=== PATIENT | female | born 1935 | race Caucasian/White ===

== ENCOUNTER → 2020-10-04 | Outpatient (CLI) | payer MEDICARE ==
[2020-10-04 11:39] VITALS: BP 128/81; PULSE 83; RESP 16; TEMP 97.6
--- NOTE | 2020-10-04 12:01 | P.CONS ---
History of Present Illness - Reason for Consult Consult date: 10/04/20 - Chief Complaint Lower back and legs pain - History of Present Illness This is an 85-year-old lady with history of chronic lower back pain with radiation to the lower extremity down to the ankles with numbness in the toes in both feet. The patient has a history of diabetes and maybe diabetic peripheral neuropathy. She also had a compression fracture with kyphoplasty. The MRI showed spondylosis and stenosis at multiple levels. The patient admits to the progressive loss of muscle strength in the lower extremities however she denies any bowel or bladder dysfunction. The patient was referred to our clinic by surgery for interventional pain procedures because she is not a good candidate for surgery. The pain gets worse with weight-bearing activities, And also wakes her up at night. Past Medical History Past Medical History: Cancer, Diabetes Mellitus, Musculoskeletal Disorder, Osteoarthritis (OA) Additional Past Medical History / Comment(s): basal cell skin cancer History of Any Multi-Drug Resistant Organisms: None Reported Past Surgical History: Orthopedic Surgery Additional Past Surgical History / Comment(s): ORIF right hip, ORIF right wrist, ORIF right ankle Past Anesthesia/Blood Transfusion Reactions: No Reported Reaction Smoking Status: Never smoker Past Alcohol Use History: None Reported Past Drug Use History: None Reported Medications and Allergies Allergies Allergy/AdvReac Type Severity Reaction Status Date / Time No Known Allergies Allergy Verified 09/30/20 15:17 Physical Exam Vitals: Vital Signs Temp Pulse Resp BP Pulse Ox 10/04/20 11:35 97.6 F 83 16 128/81 96 - Constitutional General appearance: obese - EENT Eyes: PERRLA - Neurologic Neuro exam of the lower extremities showed absent deep tendon reflexes bilaterally and decreased muscle strength to 4 out of 5 for knee flexion and extension and normal muscle strength for ankle flexion and extension bilaterally. Straight leg raising test negative bilaterally Positive tenderness in the lumbar paravertebral musculature bilaterally Positive facet loading test. The patient uses a walker for ambulation and she ambulates with difficulty. Neurologic: CNII-XII intact Assessment and Plan Plan: This is an 85-year-old lady with what seems to be lumbar stenosis with progressive weakness in the lower extremities without sphincter dysfunction. The patient may benefit from lumbar epidural steroid injection at the L4 5 level in the interlaminar approach. It is concerning to me that she has been losing strength in the lower extremities over time and even though she is not a good candidate for surgery a limited procedure to release the pressure on the spinal cord may be needed in the future especially if she continues to get weaker in the lower extremities, or if she develops any sphincter symptoms. I will prescribe Neurontin 100 mg at night to help her with the diabetic peripheral neuropathy to be increased gradually up if needed. I thank you for the referral
== END ==
LOC: PNWHC3 11:06
PROVIDERS: ATTEND Anesthesiology
DX: M48.061 Spinal stenosis, lumbar region without neurogenic claudication (principal); E11.9 Type 2 diabetes mellitus without complications; M19.90 Unspecified osteoarthritis, unspecified site; Z79.84 Long term (current) use of oral hypoglycemic drugs; Z79.82 Long term (current) use of aspirin
CPT/HCPCS: 99211

== ENCOUNTER 2020-10-28 09:48 | Day surgery (SDC) | payer MEDICARE ==
[2020-10-26 11:19] VITALS: BMI 29.9
[~2020-10-28 09:48] MED LIST: LACTATED RINGERS 1,000 ML IV SCH
[2020-10-28 10:14] VITALS: TEMP 98.4
[2020-10-28 10:24] LABS: Glucose,Whole Blood 118 mg/dL (75-99)
[2020-10-28] MEDS ORDERED: MIDAZOLAM 2 MG/2 ML VIAL ONE (10:25)
[2020-10-28] MEDS ORDERED: IOPAMIDOL M200 10 ML VIAL ONE (10:25)
[2020-10-28] MEDS ORDERED: methylPREDNISolone ACETATE 40 MG/ML 1 ML VIAL ONE (10:25)
--- NOTE | 2020-10-28 10:44 | P.PCN ---
Date of Procedure: 10/28/20 Procedure(s) Performed: PREOPERATIVE DIAGNOSIS: 1- Lumbar Degenerative Disc Diseases 2-Lumbar spondylosis with Facet arthropathy without myelopathy 3-lumbar spinal stenosis POSTOPERATIVE DIAGNOSIS: Same as preop diagnosis. PROCEDURE 1. Lumbar epidural steroid injection under fluoroscopic guidance at the L4-5 level. (Fluoroscopy imaging was available in radiology department) 2. Lumbar epidurogram. ANESTHESIA: Local with 1% lidocaine 3 ml and , moderate sedation with intravenous Versed 2 mg . EBL: Minimal PROCEDURE INDICATION: The patient with low back pain and radiculitis symptoms unresponsive to conservative treatment. Fluoroscopy was used to optimize visualization of the needle placement and to maximize safety. PROCEDURE DESCRIPTION / TECHNIQUE: The patient was seen and identified in the preoperative area. Risks, benefits, complications including but not limited to infections ,bleeding ,allergic reaction to the medications ,nerve damage and not complete pain releife , and alternatives were discussed with the patient. The patient agreed to proceed with the procedure and signed the consent. IV was started, and vital signs were stable. Patient was taken to the OR and time out was completed. The patient was placed in the prone position on procedure table and a pillow was placed under the abdomen to reduce lumbar lordosis. The lumbosacral area was prepped and draped in the usual sterile fashion.ere closely monitored during the procedure. C onscious sedation was used during the procedure to decrease patients anxiety. Vital signs was monitered during the entire procedure. Using anterior-posterior fluoroscopy, the L4-5 interlaminar space was identified and the skin over this site was marked and then infiltrated with 1% lidocaine subcutaneously. Subsequently, a 20-gauge Tuohy epidural needle was inserted and advanced toward the epidural space using the ``Loss of resistance technique and guided by AP and lateral fluoroscopy. The correct needle position in the epidural space was verified with the injection of 2 mL of the water soluble contrast dye Isovue 200 contrast and observing an excellent epidurogram with the epidural spread of the dye, after negative aspiration for blood and CSF and in the absence of paresthesias. Again after negative aspiration, a 6 ml mixture containing 40 mg of Depo-medrol , and 2 ml of preservative free Normal Saline, and 2 ml of preservative free lidocaine 1% solution was injected and a washout of epidurogram was seen. Needle was withdrawn intact, skin was cleansed, and bandages were applied. COMPLICATIONS: None DISPOSITION / PLANS: The patient was placed in a supine position and transferred to the recovery area in a stable condition for observation. There was no evidence of lower extremity motor or sensory deficit after the procedure. Patient was discharged from the recovery room after meeting discharge criteria. Home discharge instructions were given to the patient by the staff. The patient was reexamined prior to discharge. The patient will schedule a follow up in the clinic in 2-4 weeks.
[2020-10-28] MEDS ORDERED: IV FLUID CONTINUATION 1,000 ML IV ONE (10:49)
[2020-10-28 10:50] VITALS: RESP 16
[2020-10-28 11:06] VITALS: BP 124/94; PULSE 67
--- NOTE | 2020-10-28 11:37 | FL ---
EXAMINATION TYPE: FL guided pain mgmt statistic DATE OF EXAM: 10/28/2020 CLINICAL HISTORY: Low back pain. TECHNIQUE: Fluoroscopy. COMPARISON: None. FINDINGS: Fluoroscopic guidance was provided during pain relief procedure performed by Dr. Hebert . A total of 3 seconds of fluoroscopic time was utilized during the procedure and 1 spot image is ac quired. Images acquired shows needle localization the thoracolumbar spine, vertebroplasty noted 2 le vels above this. IMPRESSION: As Above.
== END 2020-10-28 11:27 | disposition home or self-care (01) ==
LOC: ORPAIN 09:48
PROVIDERS: ATTEND Specialist
DX: M51.36 Other intervertebral disc degeneration, lumbar region (principal); M47.816 Spondylosis without myelopathy or radiculopathy, lumbar region
CPT/HCPCS: 62323; J2250; J1030; Q9966

== ENCOUNTER 2023-01-06 12:57 | Inpatient (IN) | payer MEDICARE ==
[2023-01-06 13:56] LABS: ALT 10 U/L (4-34); AST 18 U/L (14-36); African American GFR (CKD) >90 (>60 ml/min/1.73 sqM); Albumin 3.9 g/dL (3.5-5.0); Alkaline Phosphatase 73 U/L (38-126); Anion Gap 8 mmol/L; Blood Urea Nitrogen 18 mg/dL (7-17); Calcium 9.1 mg/dL (8.4-10.2); Carbon Dioxide 26 mmol/L (22-30); Chloride 103 mmol/L (98-107); Glucose 118 mg/dL (74-99); Non-African American GFR(CKD) 83 (>60 ml/min/1.73 sqM); Potassium 3.9 mmol/L (3.5-5.1); Sodium 137 mmol/L (137-145); Total Bilirubin 0.3 mg/dL (0.2-1.3); Total Protein 6.6 g/dL (6.3-8.2)
--- NOTE | 2023-01-06 13:59 | XR ---
EXAMINATION TYPE: XR chest 1V portable DATE OF EXAM: 01/06/2023 COMPARISON: None INDICATION: Acute mental status changes TECHNIQUE: Single frontal view of the chest is obtained. FINDINGS: The heart size is normal. The pulmonary vasculature is normal. The lungs are clear. IMPRESSION: 1. No acute pulmonary process.
--- NOTE | 2023-01-06 14:09 | ED ---
Altered Mental Status HPI - General Chief Complaint: Altered Mental Status Stated Complaint: Confused/Weakness Time Seen by Provider: 01/06/23 13:07 Source: patient, family Mode of arrival: ambulatory Limitations: altered mental status - History of Present Illness Initial Comments: This patient is an 87-year-old woman who is brought from [facility] to have evaluation for worsening of confusion and disorientation. The patient does reportedly have some underlying dementia but was much worse going back approximately 2 days. Family had called her yesterday and she did not seem right on the phone, this was around 7:30 PM. The patient when they visited her was worse today. They state that she has been more disoriented and is not able to answer questions appropriately. When I interview the patient, she denies pains and dyspnea. She does appear to have some delirium, she believes that she had come here yesterday for evaluation when she did not. On review of systems, she really has no complaints, denying everything. Patient's family states that she does have history of fall a few weeks ago with C2/C3 fracture. She was to wear collar and follow to ensure that no procedures required. MD Complaint: altered mental status, confusion Onset/Timin -: days(s) Consistency of Symptoms: getting worse Associated Symptoms: denies other symptoms - Related Data Home Medications Medication Instructions Recorded Confirmed Aspirin [Adult Low Dose Aspirin EC] 81 mg PO DAILY 10/04/20 01/06/23 Calcium Carbonate [Calcium] 600 mg PO DAILY@1200 10/04/20 01/06/23 Citalopram Hydrobromide 20 mg PO DAILY 10/04/20 01/06/23 [Citalopram HBr] Omeprazole 20 mg PO DAILY 10/04/20 01/06/23 Simvastatin [Zocor] 40 mg PO HS 10/04/20 01/06/23 metFORMIN HCL [Glucophage] 1,000 mg PO BID@0900,1700 10/04/20 01/06/23 sitaGLIPtin [Januvia] 50 mg PO DAILY 10/04/20 01/06/23 Acetaminophen [Tylenol 8 Hour] 650 mg PO Q6H PRN 01/06/23 01/06/23 Calcium Carbonate/Vitamin D3 1 cap PO BID@0900,1700 01/06/23 01/06/23 [Calcium 600 mg-D3 10 Mcg (400 Iu)] Carbidopa-Levodopa ER 50-200Mg 1 tab PO Q8H 01/06/23 01/06/23 [Sinemet CR 50-200 mg] Cholecalciferol [Vitamin D3 (25 25 mcg PO DAILY@1200 01/06/23 01/06/23 Mcg = 1000 Iu)] Ferrous Sulfate [Iron (65 MG 325 mg PO DAILY 01/06/23 01/06/23 Elemental)] Ibuprofen [Motrin Ib] 300 mg PO Q6H 01/06/23 01/06/23 Lactulose [Cephulac] 20 gm PO DAILY 01/06/23 01/06/23 Levothyroxine Sodium [Synthroid] 100 mcg PO DAILY 01/06/23 01/06/23 Ondansetron [Zofran] 4 mg PO Q6H PRN 01/06/23 01/06/23 Sennosides/Docusate Sodium 2 tab PO BID@0900,1700 01/06/23 01/06/23 [Senna-S 8.6-50 mg Tablet] carBAMazepine [TEGretol] 200 mg PO BID 01/06/23 01/06/23 polyethylene glycoL 3350 [Miralax] 17 gm PO DAILY 01/06/23 01/06/23 rOPINIRole HCL [Requip] 0.5 mg PO DAILY 01/06/23 01/06/23 Previous Rx's Medication Instructions Recorded Acetaminophen-Codeine 300-30mg 1 each PO Q6HR PRN #6 tab 01/11/23 [Tylenol w/codeine #3] Gabapentin [Neurontin] 200 mg PO Q8HR #4 cap 01/11/23 Mag Hydrox/Al Hydrox/Simeth 15 ml PO Q6HR PRN ml 01/11/23 [Maalox] Phenazopyridine [Pyridium] 100 mg PO TID PRN #9 tab 01/11/23 cefUROXime axetiL [Ceftin] 500 mg PO BID 5 Days #10 tab 01/11/23 Allergies Allergy/AdvReac Type Severity Reaction Status Date / Time lidocaine Allergy Confusion Verified 01/06/23 15:33 Review of Systems ROS Statement: Those systems with pertinent positive or pertinent negative responses have been documented in the HPI. ROS Other: All systems not noted in ROS Statement are negative. Constitutional: Denies: fever Respiratory: Denies: cough, dyspnea Cardiovascular: Denies: chest pain, orthopnea Gastrointestinal: Denies: abdominal pain, vomiting Genitourinary: Denies: dysuria Musculoskeletal: Denies: back pain Neurological: Reports: as per HPI, confusion. Denies: headache, weakness Past Medical History Past Medical History: Cancer, Diabetes Mellitus, Musculoskeletal Disorder, Osteoarthritis (OA) Additional Past Medical History / Comment(s): basal cell skin cancer History of Any Multi-Drug Resistant Organisms: None Reported Past Surgical History: Orthopedic Surgery Additional Past Surgical History / Comment(s): ORIF right hip, ORIF right wrist, ORIF right ankle Past Anesthesia/Blood Transfusion Reactions: No Reported Reaction Past Psychological History: No Psychological Hx Reported Smoking Status: Never smoker Past Alcohol Use History: None Reported Past Drug Use History: None Reported - Past Family History Mother Family Medical History: No Reported History General Exam General appearance: alert, in no apparent distress Head exam: Present: atraumatic, normocephalic Eye exam: Present: normal appearance. Absent: scleral icterus, conjunctival injection ENT exam: Present: normal oropharynx Neck exam: Present: other (The patient has a cervical collar that she has been in for number weeks secondary to having C2/C3 fracture) Respiratory exam: Present: normal lung sounds bilaterally. Absent: respiratory distress, wheezes, rales, rhonchi, stridor Cardiovascular Exam: Present: regular rate, normal rhythm, normal heart sounds. Absent: systolic murmur, diastolic murmur, rubs, gallop GI/Abdominal exam: Present: soft. Absent: distended, tenderness, guarding, rebound, rigid, mass Extremities exam: Present: normal inspection, normal capillary refill. Absent: pedal edema, calf tenderness Back exam: Present: normal inspection Neurological exam: Present: alert, CN II-XII intact. Absent: oriented X3, motor sensory deficit Skin exam: Present: warm, dry, intact, normal color. Absent: rash Course Vital Signs 01/06/23 01/06/23 01/06/23 12:59 13:02 17:03 Temperature 99.4 F Pulse Rate 93 85 97 Pulse Rate [ Pulse Oximetery ] Respiratory 20 17 18 Rate Blood Pressure 125/66 148/78 160/74 Blood Pressure [Right Arm] O2 Sat by Pulse 96 94 L 98 Oximetry 01/06/23 01/06/23 21:00 21:47 Temperature 97.9 F Pulse Rate 98 Pulse Rate [ 83 Pulse Oximetery ] Respiratory 20 18 Rate Blood Pressure 158/64 Blood Pressure 178/84 [Right Arm] O2 Sat by Pulse 96 99 Oximetry Medical Decision Making - Medical Decision Making The patient had CT of the brain and C-spine which I interpret as showing any acute cranial fracture or intracranial hemorrhage. There is a fracture at the base of the C2 dens. The patient had chest x-ray which I interpreted as being negative for acute infiltrate, pneumothorax, congestive heart failure. Patient is an 87-year-old woman here to have evaluation for altered mental status. She is found to have urinary tract infection and given the delirium will admit to have IV antibiotics to ensure some improvement then discharged joselin k to facility. Currently no pain related to the neck but will have orthopedics consult regarding the fracture to ensure no change in treatment plan. Was pt. sent in by a medical professional or institution (, PA, [facility], urgent care, hospital, or senior living...) When possible be specific @ -The patient sent by senior living for evaluation Did you speak to anyone other than the patient for history (EMS, parent, family, police, friend...)? What history was obtained from this source @ -[Family did contribute history Did you review nursing and triage notes (agree or disagree)? Why? @ -[I reviewed and agree with nursing and triage notes] Were old charts reviewed (outside hosp., previous admission, EMS record, old EKG, old radiological studies, urgent care reports/EKG's, senior living records)? Report findings @ -[No old charts were reviewed] Differential Diagnosis (chest pain, altered mental status, abdominal pain women, abdominal pain men, vaginal bleeding, weakness, fever, dyspnea, syncope, headache, dizziness, GI bleed, back pain, seizure, CVA, palpatations, mental health, musculoskeletal)? @ -[Differential Altered Mental Status: Hypoglycemia, DKA, hypercapnia, ETOH, overdose, CO poisoning, trauma, myxedema coma, HTN encephalopathy, infection, encephalitis, psychosis, intercranial hemor rhage, hepatic encephalopathy, meningitis, CVA, this is not meant to be an all- inclusive list EKG interpreted by me (3pts min.). @ -[As above] X-rays interpreted by me (1pt min.). @ -[As above CT interpreted by me (1pt min.). @ -[As above U/S interpreted by me (1pt. min.). @ -[None done] What testing was considered but not performed or refused? (CT, X-rays, U/S, labs)? Why? @ -[None] What meds were considered but not given or refused? Why? @ -[None] Did you discuss the management of the patient with other professionals (professionals i.e. , PA, [facility], lab, RT, psych nurse, long term care social worker, sorter/assay tech, teacher, guest services officer, keycase assembler)? Give summary @ -[Case discussed with admitting physician Was smoking cessation discussed for >3mins.? @ -[No] Was critical care preformed (if so, how long)? @ -[No] Were there social determinants of health that impacted care today? How? (Homelessness, low income, unemployed, alcoholism, drug addiction, transportation, low edu. Level, literacy, decrease access to med. care, fdc, rehab)? @ -[No] Was there de-escalation of care discussed even if they declined (Discuss DNR or withdrawal of care, Hospice)? DNR status @ -[No] What co-morbidities impacted this encounter? (DM, HTN, Smoking, COPD, CAD, Cancer, CVA, ARF, Chemo, Hep., AIDS, mental health diagnosis, sleep apnea, morbid obesity)? @ -[None] Was patient admitted / discharged? Hospital course, mention meds given and rout e, prescriptions, significant lab abnormalities, going to OR and other pertinent info. @ -[Admitted, as above Undiagnosed new problem with uncertain prognosis? @ -[No] Drug Therapy requiring intensive monitoring for toxicity (Heparin, Nitro, Insulin, Cardizem)? @ -[No] Were any procedures done? @ -[No] Diagnosis/symptom? @ -[Acute altered mental status Acute urinary tract infection Cervical spine fracture, chronic Acute, or Chronic, or Acute on Chronic? @ -[default] Uncomplicated (without systemic symptoms) or Complicated (systemic symptoms)? @ -[Uncomplicated Side effects of treatment? @ -[No] Exacerbation, Progression, or Severe Exacerbation? @ -[No] Poses a threat to life or bodily function? How? (Chest pain, [place], VA, pneumonia, PE, COPD, DKA, ARF, appy, cholecystitis, CVA, Diverticulitis, Homicidal, Suicidal, threat to staff... and all critical care pts) @ -[Yes, urinary tract infection if untreated may progress to sepsis/ - Lab Data Result diagrams: 01/09/23 12:06 01/09/23 12:06 Lab Results 01/06/23 01/06/23 01/06/23 Range/Units 13:33 13:37 13:37 WBC 7.2 (3.8-10.6) k/uL RBC 3.60 L (3.80-5.40) m/uL Hgb 11.1 L (11.4-16.0) gm/dL Hct 33.6 L (34.0-46.0) % MCV 93.3 (80.0-100.0) fL MCH 30.9 (25.0-35.0) pg MCHC 33.1 (31.0-37.0) g/dL RDW 14.3 (11.5-15.5) % Plt Count 442 (150-450) k/uL MPV 7.7 Neutrophils % 82 % Lymphocytes % 9 % Monocytes % 7 % Eosinophils % 1 % Basophils % 0 % Neutrophils # 5.9 (1.3-7.7) k/uL Lymphocytes # 0.6 L (1.0-4.8) k/uL Monocytes # 0.5 (0-1.0) k/uL Eosinophils # 0.1 (0-0.7) k/uL Basophils # 0.0 (0-0.2) k/uL PT 10.1 (9.0-12.0) sec INR 0.9 (<1.2) APTT 21.5 L (22.0-30.0) sec Sodium (137-145) mmol/L Potassium (3.5-5.1) mmol/L Chloride (98-107) mmol/L Carbon Dioxide (22-30) mmol/L Anion Gap mmol/L BUN (7-17) mg/dL Creatinine (0.52-1.04) mg/dL Est GFR (CKD-EPI)AfAm (>60 ml/min/1.73 sqM) Est GFR (CKD-EPI)NonAf (>60 ml/min/1.73 sqM) Glucose (74-99) mg/dL Lactic Ac Sepsis Rflx Plasma Lactic Acid Mika (0.7-2.0) mmol/L Calcium (8.4-10.2) mg/dL Total Bilirubin (0.2-1.3) mg/dL AST (14-36) U/L ALT (4-34) U/L Alkaline Phosphatase (38-126) U/L Troponin I (0.000-0.034) ng/mL Total Protein (6.3-8.2) g/dL Albumin (3.5-5.0) g/dL Urine Color Urine Appearance (Clear) Urine pH (5.0-8.0) Ur Specific Traer (1.001-1.035) Urine Protein (Negative) Urine Glucose (UA) (Negative) Urine Ketones (Negative) Urine Blood (Negative) Urine Nitrite (Negative) Urine Bilirubin (Negative) Urine Urobilinogen (<2.0) mg/dL Ur Leukocyte Esterase (Negative) Urine RBC (0-5) /hpf Urine WBC (0-5) /hpf Urine WBC Clumps (None) /hpf Urine Bacteria (None) /hpf Urine Mucus (None) /hpf Influenza Type A (PCR) Not Detected (Not Detectd) Influenza Type B (PCR) Not Detected (Not Detectd) RSV (PCR) Not Detected (Not Detectd) SARS-CoV-2 (PCR) Not Detected (Not Detectd) 01/06/23 01/06/23 01/06/23 Range/Units 13:37 13:37 13:37 WBC (3.8-10.6) k/uL RBC (3.80-5.40) m/uL Hgb (11.4-16.0) gm/dL Hct (34.0-46.0) % MCV (80.0-100.0) fL MCH (25.0-35.0) pg MCHC (31.0-37.0) g/dL RDW (11.5-15.5) % Plt Count (150-450) k/uL MPV Neutrophils % % Lymphocytes % % Monocytes % % Eosinophils % % Basophils % % Neutrophils # (1.3-7.7) k/uL Lymphocytes # (1.0-4.8) k/uL Monocytes # (0-1.0) k/uL Eosinophils # (0-0.7) k/uL Basophils # (0-0.2) k/uL PT (9.0-12.0) sec INR (<1.2) APTT (22.0-30.0) sec Sodium 137 (137-145) mmol/L Potassium 3.9 (3.5-5.1) mmol/L Chloride 103 (98-107) mmol/L Carbon Dioxide 26 (22-30) mmol/L Anion Gap 8 mmol/L BUN 18 H (7-17) mg/dL Creatinine 0.60 (0.52-1.04) mg/dL Est GFR (CKD-EPI)AfAm >90 (>60 ml/min/1.73 sqM) Est GFR (CKD-EPI)NonAf 83 (>60 ml/min/1.73 sqM) Glucose 118 H (74-99) mg/dL Lactic Ac Sepsis Rflx Plasma Lactic Acid Mika 2.7 H* (0.7-2.0) mmol/L Calcium 9.1 (8.4-10.2) mg/dL Total Bilirubin 0.3 (0.2-1.3) mg/dL AST 18 (14-36) U/L ALT 10 (4-34) U/L Alkaline Phosphatase 73 (38-126) U/L Troponin I <0.012 (0.000-0.034) ng/mL Total Protein 6.6 (6.3-8.2) g/dL Albumin 3.9 (3.5-5.0) g/dL Urine Color Urine Appearance (Clear) Urine pH (5.0-8.0) Ur Specific Traer (1.001-1.035) Urine Protein (Negative) Urine Glucose (UA) (Negative) Urine Ketones (Negative) Urine Blood (Negative) Urine Nitrite (Negative) Urine Bilirubin (Negative) Urine Urobilinogen (<2.0) mg/dL Ur Leukocyte Esterase (Negative) Urine RBC (0-5) /hpf Urine WBC (0-5) /hpf Urine WBC Clumps (None) /hpf Urine Bacteria (None) /hpf Urine Mucus (None) /hpf Influenza Type A (PCR) (Not Detectd) Influenza Type B (PCR) (Not Detectd) RSV (PCR) (Not Detectd) SARS-CoV-2 (PCR) (Not Detectd) 01/06/23 01/06/2301/06/23 Range/Units 14:04 15:37 16:35 WBC (3.8-10.6) k/uL RBC (3.80-5.40) m/uL Hgb (11.4-16.0) gm/dL Hct (34.0-46.0) % MCV (80.0-100.0) fL MCH (25.0-35.0) pg MCHC (31.0-37.0) g/dL RDW (11.5-15.5) % Plt Count (150-450) k/uL MPV Neutrophils % % Lymphocytes % % Monocytes % % Eosinophils % % Basophils % % Neutrophils # (1.3-7.7) k/uL Lymphocytes # (1.0-4.8) k/uL Monocytes # (0-1.0) k/uL Eosinophils # (0-0.7) k/uL Basophils # (0-0.2) k/uL PT (9.0-12.0) sec INR (<1.2) APTT (22.0-30.0) sec Sodium (137-145) mmol/L Potassium (3.5-5.1) mmol/L Chloride (98-107) mmol/L Carbon Dioxide (22-30) mmol/L Anion Gap mmol/L BUN (7-17) mg/dL Creatinine (0.52-1.04) mg/dL Est GFR (CKD-EPI)AfAm (>60 ml/min/1.73 sqM) Est GFR (CKD-EPI)NonAf (>60 ml/min/1.73 sqM) Glucose (74-99) mg/dL Lactic Ac Sepsis Rflx Y Plasma Lactic Acid Mika 1.2 (0.7-2.0) mmol/L Calcium (8.4-10.2) mg/dL Total Bilirubin (0.2-1.3) mg/dL AST (14-36) U/L ALT (4-34) U/L Alkaline Phosphatase (38-126) U/L Troponin I (0.000-0.034) ng/mL Total Protein (6.3-8.2) g/dL Albumin (3.5-5.0) g/dL Urine Color Light Yellow Urine Appearance Cloudy H (Clear) Urine pH 7.5 (5.0-8.0) Ur Specific Traer 1.013 (1.001-1.035) Urine Protein Trace H (Negative) Urine Glucose (UA) Negative (Negative) Urine Ketones Negative (Negative) Urine Blood Trace H (Negative) Urine Nitrite Positive H (Negative) Urine Bilirubin Negative (Negative) Urine Urobilinogen <2.0 (<2.0) mg/dL Ur Leukocyte Esterase Large H (Negative) Urine RBC 3 (0-5) /hpf Urine WBC 75 H (0-5) /hpf Urine WBC Clumps Occasional H (None) /hpf Urine Bacteria Rare H (None) /hpf Urine Mucus Rare H (None) /hpf Influenza Type A (PCR) (Not Detectd) Influenza Type B (PCR) (Not Detectd) RSV (PCR) (Not Detectd) SARS-CoV-2 (PCR) (Not Detectd) - EKG Data -: EKG Interpreted by Me EKG shows normal: sinus rhythm, axis (Normal), intervals (Normal) Rate: normal (Rate 74 bpm) Disposition Clinical Impression: Delirium due to general medical condition, Urinary tract infection Disposition: ADMITTED IP TO THIS HOSP Condition: Fair Is patient prescribed a controlled substance at d/c from ED?: No
[2023-01-06 14:18] LABS: INR 0.9 (<1.2); Prothrombin Time 10.1 sec (9.0-12.0)
--- NOTE | 2023-01-06 14:22 | CT ---
EXAMINATION TYPE: CT brain mya hernandes DATE OF EXAM: 01/06/2023 COMPARISON: HISTORY: Altered mental status/possible fall CT DLP: 1477.2 mGycm Automated exposure control for dose reduction was used. TECHNIQUE: CT scan of the head and cervical spine are performed without contrast. FINDINGS: CT brain: There is no acute intracranial hemorrhage, mass effect, or midline shift identified. Ventricles, basa l cisterns and sulci over convexities are markedly enlarged consistent with marked generalized atroph y. The globes are intact and the visualized sinuses are clear. CT cervical spine: There is a minimally displaced fracture involving C2 fracture involves the base of the dens and is sl ightly displaced. The remaining cervical vertebral segments are normal in height and alignment. There are marked degene rative changes of the facet joints. There is no bony encroachment of the cervical canal. IMPRESSION: 1. Fracture of the dens as described above. 2. No acute intracranial hemorrhage, mass effect, or midline shift is seen.
[2023-01-06 14:27] LABS: Partial Thromboplastin Time 21.5 sec (22.0-30.0)
[2023-01-06 14:33] LABS: Basophils % (A) 0 %; Eosinophils # (A) 0.1 k/uL (0-0.7); Eosinophils % (A) 1 %; HCT 33.6 % (34.0-46.0); HGB 11.1 gm/dL (11.4-16.0); Lymphocytes # (A) 0.6 k/uL (1.0-4.8); Lymphocytes % (A) 9 %; MCH 30.9 pg (25.0-35.0); MCHC 33.1 g/dL (31.0-37.0); MCV 93.3 fL (80.0-100.0); Mean Platelet Volume 7.7; Monocytes # (A) 0.5 k/uL (0-1.0); Monocytes % (A) 7 %; Neutrophils # (A) 5.9 k/uL (1.3-7.7); Neutrophils % (A) 82 %; Platelet Count 442 k/uL (150-450); RDW 14.3 % (11.5-15.5); WBC 7.2 k/uL (3.8-10.6)
[2023-01-06] MEDS ORDERED: SODIUM CHLORIDE 0.9% 500 ML 500 ML IV STA (15:39)
[2023-01-06 16:41] LABS: Appearance,Urine Cloudy (Clear); Bacteria,Urine Rare /hpf; Bilirubin,Urine Negative (Negative); Blood,Urine Trace (Negative); Color,Urine Light Yellow; Glucose,Urine (UA) Negative (Negative); Ketones,Urine Negative (Negative); Leukocyte Esterase,Urine Large (Negative); Mucus,Urine Rare /hpf; Nitrite,Urine Positive (Negative); PH, Urine 7.5 (5.0-8.0); Protein,Urine Trace (Negative); RBC,Urine 3 /hpf (0-5); Specific Gravity,Urine 1.013 (1.001-1.035); Urobilinogen,Urine <2.0 mg/dL (<2.0); WBC,Urine 75 /hpf (0-5)
[2023-01-06] MEDS ORDERED: ALPRAZolam 0.25 MG TAB PO PRN (19:57)
[2023-01-06] MEDS ORDERED: ACETAMINOPHEN TAB 325 MG TAB PO PRN (19:57)
[2023-01-06] MEDS ORDERED: ONDANSETRON 4 MG/2 ML VIAL IVP PRN (19:57)
[2023-01-06] MEDS ORDERED: NALOXONE 0.4 MG/ML 1 ML VIAL IV PRN (19:57)
[2023-01-06] MEDS ORDERED: MAG HYDROX/AL HYDROX/SIMETH 30 ML CUP PO PRN (19:57)
[2023-01-06] MEDS: SODIUM CHLORIDE 0.9% 1,000 ML IV SCH (20:04)
[2023-01-07] MEDS ORDERED: polyethylene glycoL 3350 17 GM POWD.PACK PO PRN (06:40)
[2023-01-07 08:05] LABS: Glucose,Whole Blood 162 mg/dL (70-110)
[2023-01-07] MEDS: GABAPENTIN 100 MG CAP PO SCH ×3 (08:41→21:38)
[2023-01-07] MEDS: CITALOPRAM HYDROBROMIDE 20 MG TAB PO SCH (08:42)
[2023-01-07] MEDS: LACTULOSE 20 GM/30 ML CUP PO SCH ×2 (08:42→17:11)
[2023-01-07] MEDS: ASPIRIN 81 MG PO SCH (08:42)
[2023-01-07] MEDS: FERROUS SULFATE 325 MG TAB PO SCH (08:42)
[2023-01-07] MEDS: SENNOSIDES-DOCUSATE SODIUM 1 EACH TAB PO SCH ×2 (08:42→17:11)
[2023-01-07] MEDS: metFORMIN 500 MG TAB PO SCH ×2 (08:42→17:26)
[2023-01-07] MEDS: CARBIDOPA-LEVODOPA ER 50-200MG 1 EACH TABLET.ER PO SCH ×3 (08:42→21:39)
[2023-01-07] MEDS: hydroCHLOROthiazide 25 MG TAB PO SCH (09:40)
[2023-01-07] MEDS: carBAMazepine 200 MG TAB PO SCH ×2 (09:40→21:39)
--- NOTE | 2023-01-07 10:20 | P.HPIM ---
History of Present Illness This is a pleasant 87 years FEMALE with multiple medical problems as below. Chest past medical history of diabetes mellitus, osteoarthritis, depression, Parkinson disease, hyperlipidemia, hypothyroidism, Patient is confused and poor historian. Patient comes from [facility] from [facility] after she fell there reportedly Family think the patient is not at herself over the last 2 days, she is confused and disoriented and not answer questions appropriately. As per report patient fell last November and she had 2 fracture on her cervical spine and she fractured her right ankle she was in the boot which was taken off recently and she is able to walk. Patient herself looks drowsy and confused, she follows commands but she denies any chest pain or dyspnea, no abdominal pain or urinary symptoms, she still complaining from back pain. Vitals stable and patient afebrile, blood pressure on the high side. 176/74 and 146/81. That showed mild anemia with 11.1 hemoglobin. Cystoscopy CBC, INR, BMP and liver enzymes were unremarkable. Troponin is negative. Lactic acid back to normal at 1.2. Urine analysis was suspicious of infection. Influenza A and type B, RSV, SARS (coronavirus) are undetected EKG showing normal sinus rhythm at [address]-T changes CT of the head and cervical spine, no acute intracranial hemorrhage or mass effect or midline shift. There is minimally displaced fracture involving C2 fracture involving the base of the dens and is slightly displaced Chest x-ray: No acute process. Patient already admitted with orthopedic consult for cervical fracture Review of Systems Review of systems CONSTITUTIONAL: No fever, no malaise, no fatigue. HEENT: No recent visual problems or hearing problems. Denied any sore throat. CARDIOVASCULAR: No orthopnea, PND, no palpitations, no syncope. PULMONARY: No shortness of breath, no cough, no hemoptysis. GASTROINTESTINAL: No diarrhea, no nausea, no vomiting, no abdominal pain. Normoactive bowel sounds. NEUROLOGICAL: No headaches, no weakness, no numbness. HEMATOLOGICAL: Denies any bleeding or petechiae. GENITOURINARY: Denies any burning micturition, frequency, or urgency. MUSCULOSKELETAL/RHEUMATOLOGICAL: Denies any joint pain, swelling, or any muscle pain. ENDOCRINE: Denies any polyuria or polydipsia. Past Medical History Past Medical History: Cancer, Diabetes Mellitus, Musculoskeletal Disorder, Osteoarthritis (OA) Additional Past Medical History / Comment(s): basal cell skin cancer History of Any Multi-Drug Resistant Organisms: None Reported Past Surgical History: Orthopedic Surgery Additional Past Surgical History / Comment(s): ORIF right hip, ORIF right wrist, ORIF right ankle Past Anesthesia/Blood Transfusion Reactions: No Reported Reaction Past Psychological History: No Psychological Hx Reported Smoking Status: Never smoker Past Alcohol Use History: None Reported Past Drug Use History: None Reported - Past Family History Mother Family Medical History: No Reported History Medications and Allergies Home Medications Medication Instructions Recorded Confirmed Type Aspirin [Adult Low Dose Aspirin EC] 81 mg PO DAILY 10/04/20 01/06/23 History Calcium Carbonate [Calcium] 600 mg PO DAILY@1200 10/04/20 01/06/23 History Citalopram Hydrobromide 20 mg PO DAILY 10/04/20 01/06/23 History [Citalopram HBr] Gabapentin [Neurontin] 200 mg PO Q8H 10/04/20 01/06/23 History Omeprazole 20 mg PO DAILY 10/04/20 01/06/23 History Simvastatin [Zocor] 40 mg PO HS 10/04/20 01/06/23 History hydroCHLOROthiazide [Hydrodiuril] 25 mg PO DAILY 10/04/20 01/06/23 History metFORMIN HCL [Glucophage] 1,000 mg PO BID@0900,1700 10/04/20 01/06/23 History sitaGLIPtin [Januvia] 50 mg PO DAILY 10/04/20 01/06/23 History Acetaminophen [Tylenol 8 Hour] 650 mg PO Q6H PRN 01/06/23 01/06/23 History Calcium Carbonate/Vitamin D3 1 cap PO BID@0900,1700 01/06/23 01/06/23 History [Calcium 600 mg-D3 10 Mcg (400 Iu)] Carbidopa-Levodopa ER 50-200Mg 1 tab PO Q8H 01/06/23 01/06/23 History [Sinemet CR 50-200 mg] Cholecalciferol [Vitamin D3 (25 25 mcg PO DAILY@1200 01/06/23 01/06/23 History Mcg = 1000 Iu)] Ferrous Sulfate [Feosol] 325 mg PO DAILY 01/06/23 01/06/23 History HYDROcodone/APAP 5-325MG [[place] 1 tab PO TID PRN 01/06/23 01/06/23 History 5-325] Ibuprofen [Motrin Ib] 300 mg PO Q6H 01/06/23 01/06/23 History Lactulose [Cephulac] 20 gm PO DAILY 01/06/23 01/06/23 History Levothyroxine Sodium [Synthroid] 100 mcg PO DAILY 01/06/23 01/06/23 History Ondansetron [Zofran] 4 mg PO Q6H PRN 01/06/23 01/06/23 History Sennosides/Docusate Sodium 2 tab PO BID@0900,1700 01/06/23 01/06/23 History [Senna-S 8.6-50 mg Tablet] carBAMazepine [TEGretol] 200 mg PO BID 01/06/23 01/06/23 History polyethylene glycoL 3350 [Miralax] 17 gm PO DAILY 01/06/23 01/06/23 History rOPINIRole HCL [Requip] 0.5 mg PO DAILY 01/06/23 01/06/23 History Allergies Allergy/AdvReac Type Severity Reaction Status Date / Time lidocaine Allergy Confusion Verified 01/06/23 15:33 Physical Exam Vitals: Vital Signs Temp Pulse Pulse Resp BP BP Pulse Ox 01/07/23 08:05 97.7 F 91 16 146/81 92 L 01/07/23 07:14 96 01/07/23 03:21 98.1 F 81 18 176/74 96 01/06/23 21:47 97.9 F 83 18 178/84 99 01/06/23 21:00 98 20 158/64 96 01/06/23 17:03 97 18 160/74 98 01/06/23 13:02 85 17 148/78 94 L 01/06/23 12:59 99.4 F 93 20 125/66 96 Intake and Output 01/06/23 01/07/23 01/07/23 22:59 06:59 14:59 Output Total 300 750 Balance -300 -750 Output: Urine 300 750 Straight 300 Other: Voiding Method Diaper Incontinent External Catheter # Voids 1 Weight 72.575 kg -GENERAL: The patient is awake but confused, not in any acute distress. Well developed, well nourished. HEENT: Pupils are round and equally reacting to light. EOMI. No scleral icterus. No conjunctival pallor. Normocephalic, atraumatic. No pharyngeal erythema. No thyromegaly. CARDIOVASCULAR: S1 and S2 present. No murmurs, rubs, or gallops. PULMONARY: Chest is clear to auscultation, no wheezing , no crackles. ABDOMEN: Soft, nontender, nondistended, normoactive bowel sounds. No palpable organomegaly. MUSCULOSKELETAL: No joint swelling or deformity. EXTREMITIES: No cyanosis, clubbing, or pedal edema. NEUROLOGICAL: Gross neurological examination did not reveal any focal deficits. SKIN: No rashes. no petechiae. Results CBC & Chem 7: 01/06/23 13:37 01/06/23 13:37 Labs: Abnormal Lab Results - Last 24 Hours (Table) 01/06/23 01/06/23 01/06/23 Range/Units 13:37 13:37 13:37 RBC 3.60 L (3.80-5.40) m/uL Hgb 11.1 L (11.4-16.0) gm/dL Hct 33.6 L (34.0-46.0) % Lymphocytes # 0.6 L (1.0-4.8) k/uL APTT 21.5 L (22.0-30.0) sec BUN 18 H (7-17) mg/dL Glucose 118 H (74-99) mg/dL POC Glucose (mg/dL) (70-110) mg/dL Plasma Lactic Acid Mika (0.7-2.0) mmol/L Urine Appearance (Clear) Urine Protein (Negative) Urine Blood (Negative) Urine Nitrite (Negative) Ur Leukocyte Esterase (Negative) Urine WBC (0-5) /hpf Urine WBC Clumps (None) /hpf Urine Bacteria (None) /hpf Urine Mucus (None) /hpf 01/06/23 01/06/23 01/07/23 Range/Units 13:37 15:37 08:04 RBC (3.80-5.40) m/uL Hgb (11.4-16.0) gm/dL Hct (34.0-46.0) % Lymphocytes # (1.0-4.8) k/uL APTT (22.0-30.0) sec BUN (7-17) mg/dL Glucose (74-99) mg/dL POC Glucose (mg/dL) 162 H (70-110) mg/dL Plasma Lactic Acid Mika 2.7 H* (0.7-2.0) mmol/L Urine Appearance Cloudy H (Clear) Urine Protein Trace H (Negative) Urine Blood Trace H (Negative) Urine Nitrite Positive H (Negative) Ur Leukocyte Esterase Large H (Negative) Urine WBC 75 H (0-5) /hpf Urine WBC Clumps Occasional H (None) /hpf Urine Bacteria Rare H (None) /hpf Urine Mucus Rare H (None) /hpf Thrombosis Risk Factor Assmnt - Choose All That Apply Any of the Below Risk Factors Present?: Yes Each Factor Represents 1 point: Obesity (BMI >25) Other Risk Factors: Yes Each Risk Factor Represents 3 Points: Age 75 years or older Thrombosis Risk Factor Assessment Total Risk Factor Score: 4 Thrombosis Risk Factor Assessment Level: Moderate Risk Assessment and Plan Assessment: AMS mostly Metabolic toxic/ encephalopathy Acute urinary tract infection Recent history of C2 and C3 etcher, CT showing minimally displaced fracture involving C2 fracture involving the base of the dens and is slightly displaced Diabetes mellitus Hypertension Hyperlipidemia History of osteoarthritis Hypothyroidism Plan: Continue with ceftriaxone, follow-up urine culture Consult ORTHOPEDIC TEAM were consulted from emergency room Add [facility] for better blood pressure control Labs and medication were reviewed.. Continue same treatment. Continue with symptomatic treatment. Resume home medication. Monitor lytes and vitals. DVT and GI prophylaxis. Further recommendations depends on the clinical course of the patient DVT prophylaxis: Subcutaneous heparin GI Prophylaxis: Pepcid PT/OT: Pending Prognosis is guarded
--- NOTE | 2023-01-07 10:42 | P.CNOR ---
History of Present Illness - HPI Consult date: 01/07/23 History of present illness: This is an 87-year-old female who is admitted for altered mental status. Orthopedics is consulted due to a previous cervical fracture that she has been in a collar for. Patient is seen and evaluated at bedside today and states that she does not know the physician she is seeing for her cervical fracture. Paulina miller is confused and is a poor historian. There is no family present in the room today. Patient's past medical history significant for diabetes mellitus, osteoarthritis, depression, Parkinson's, hyperlipidemia, and hyperthyroidism. Review of Systems ROS unobtainable: due to mental status Past Medical History Past Medical History: Cancer, Diabetes Mellitus, Musculoskeletal Disorder, Osteoarthritis (OA) Additional Past Medical History / Comment(s): basal cell skin cancer History of Any Multi-Drug Resistant Organisms: None Reported Past Surgical History: Orthopedic Surgery Additional Past Surgical History / Comment(s): ORIF right hip, ORIF right wrist, ORIF right ankle Past Anesthesia/Blood Transfusion Reactions: No Reported Reaction Past Psychological History: No Psychological Hx Reported Smoking Status: Never smoker Past Alcohol Use History: None Reported Past Drug Use History: None Reported - Past Family History Mother Family Medical History: No Reported History Medications and Allergies Home Medications Medication Instructions Recorded Confirmed Type Aspirin [Adult Low Dose Aspirin EC] 81 mg PO DAILY 10/04/20 01/06/23 History Calcium Carbonate [Calcium] 600 mg PO DAILY@1200 10/04/20 01/06/23 History Citalopram Hydrobromide 20 mg PO DAILY 10/04/20 01/06/23 History [Citalopram HBr] Gabapentin [Neurontin] 200 mg PO Q8H 10/04/20 01/06/23 History Omeprazole 20 mg PO DAILY 10/04/20 01/06/23 History Simvastatin [Zocor] 40 mg PO HS 10/04/20 01/06/23 History hydroCHLOROthiazide [Hydrodiuril] 25 mg PO DAILY 10/04/20 01/06/23 History metFORMIN HCL [Glucophage] 1,000 mg PO BID@0900,1700 10/04/20 01/06/23 History sitaGLIPtin [Januvia] 50 mg PO DAILY 10/04/20 01/06/23 History Acetaminophen [Tylenol 8 Hour] 650 mg PO Q6H PRN 01/06/23 01/06/23 History Calcium Carbonate/Vitamin D3 1 cap PO BID@0900,1700 01/06/23 01/06/23 History [Calcium 600 mg-D3 10 Mcg (400 Iu)] Carbidopa-Levodopa ER 50-200Mg 1 tab PO Q8H 01/06/23 01/06/23 History [Sinemet CR 50-200 mg] Cholecalciferol [Vitamin D3 (25 25 mcg PO DAILY@1200 01/06/23 01/06/23 History Mcg = 1000 Iu)] Ferrous Sulfate [Feosol] 325 mg PO DAILY 01/06/23 01/06/23 History HYDROcodone/APAP 5-325MG [[place] 1 tab PO TID PRN 01/06/23 01/06/23 History 5-325] Ibuprofen [Motrin Ib] 300 mg PO Q6H 01/06/23 01/06/23 History Lactulose [Cephulac] 20 gm PO DAILY 01/06/23 01/06/23 History Levothyroxine Sodium [Synthroid] 100 mcg PO DAILY 01/06/23 01/06/23 History Ondansetron [Zofran] 4 mg PO Q6H PRN 01/06/23 01/06/23 History Sennosides/Docusate Sodium 2 tab PO BID@0900,1700 01/06/23 01/06/23 History [Senna-S 8.6-50 mg Tablet] carBAMazepine [TEGretol] 200 mg PO BID 01/06/23 01/06/23 History polyethylene glycoL 3350 [Miralax] 17 gm PO DAILY 01/06/23 01/06/23 History rOPINIRole HCL [Requip] 0.5 mg PO DAILY 01/06/23 01/06/23 History Allergies Allergy/AdvReac Type Severity Reaction Status Date / Time lidocaine Allergy Confusion Verified 01/06/23 15:33 Physical Examination On exam patient is resting comfortably in bed in no acute distress. Patient is confused. Patient is not wearing her c-collar today. Patient moves bilateral upper and lower extremities freely. Neurovascular status circulatory status are intact. Results - Labs Labs: Abnormal Lab Results - Last 24 Hours (Table) 01/06/23 01/06/23 01/06/23 Range/Units 13:37 13:37 13:37 RBC 3.60 L (3.80-5.40) m/uL Hgb 11.1 L (11.4-16.0) gm/dL Hct 33.6 L (34.0-46.0) % Lymphocytes # 0.6 L (1.0-4.8) k/uL APTT 21.5 L (22.0-30.0) sec BUN 18 H (7-17) mg/dL Glucose 118 H (74-99) mg/dL POC Glucose (mg/dL) (70-110) mg/dL Plasma Lactic Acid Mika (0.7-2.0) mmol/L Urine Appearance (Clear) Urine Protein (Negative) Urine Blood (Negative) Urine Nitrite (Negative) Ur Leukocyte Esterase (Negative) Urine WBC (0-5) /hpf Urine WBC Clumps (None) /hpf Urine Bacteria (None) /hpf Urine Mucus (None) /hpf 01/06/23 01/06/23 01/07/23 Range/Units 13:37 15:37 08:04 RBC (3.80-5.40) m/uL Hgb (11.4-16.0) gm/dL Hct (34.0-46.0) % Lymphocytes # (1.0-4.8) k/uL APTT (22.0-30.0) sec BUN (7-17) mg/dL Glucose (74-99) mg/dL POC Glucose (mg/dL) 162 H (70-110) mg/dL Plasma Lactic Acid Mika 2.7 H* (0.7-2.0) mmol/L Urine Appearance Cloudy H (Clear) Urine Protein Trace H (Negative) Urine Blood Trace H (Negative) Urine Nitrite Positive H (Negative) Ur Leukocyte Esterase Large H (Negative) Urine WBC 75 H (0-5) /hpf Urine WBC Clumps Occasional H (None) /hpf Urine Bacteria Rare H (None) /hpf Urine Mucus Rare H (None) /hpf H & H 01/06/23 Range/Units 13:37 Hgb 11.1 L (11.4-16.0) gm/dL Hct 33.6 L (34.0-46.0) % Coagulation 01/06/23 Range/Units 13:37 INR 0.9 (<1.2) Result Diagrams: 01/06/23 13:37 07/01/23 13:37 Assessment and Plan (1) Delirium due to general medical condition Current Visit: Yes Status: Acute Code(s): F05 - DELIRIUM DUE TO KNOWN PHYSIOLOGICAL CONDITION SNOMED Code(s): 4836354 (2) Urinary tract infection Current Visit: Yes Status: Acute Code(s): N39.0 - URINARY TRACT INFECTION, SITE NOT SPECIFIED SNOMED Code(s): 54578373 Plan: Patient is seen and evaluated at bedside today for a cervical fracture that happened in November. Per nursing, the patient resides at [facility]. Recommend that patient continue use of her c-collar until she can follow up with her orthopedic team as an outpatient.
[2023-01-07 12:09] LABS: Glucose,Whole Blood 130 mg/dL (70-110)
[2023-01-07 17:27] LABS: Glucose,Whole Blood 135 mg/dL (70-110)
[2023-01-07] MEDS: ACETAMINOPHEN TAB 325 MG TAB PO PRN (17:27)
[2023-01-07] MEDS: CHOLECALCIFEROL 25 MCG (1000 IU) TABLET PO SCH (17:27)
[2023-01-07 20:14] LABS: Glucose,Whole Blood 279 mg/dL (70-110)
[2023-01-07] MEDS: SODIUM CHLORIDE 0.9% 1,000 ML IV SCH (21:37)
[2023-01-07] MEDS: ATORVASTATIN 40 MG TAB PO SCH (21:38)
[2023-01-08 05:54] LABS: Glucose,Whole Blood 127 mg/dL (70-110)
[2023-01-08] MEDS: ACETAMINOPHEN TAB 325 MG TAB PO PRN ×3 (06:15→20:28)
[2023-01-08] MEDS: LEVOTHYROXINE 100 MCG TAB PO SCH (06:15)
[2023-01-08] MEDS: carBAMazepine 200 MG TAB PO SCH ×2 (09:16→20:28)
[2023-01-08] MEDS: LACTULOSE 20 GM/30 ML CUP PO SCH (09:16)
[2023-01-08] MEDS: CITALOPRAM HYDROBROMIDE 20 MG TAB PO SCH (09:17)
[2023-01-08] MEDS: ASPIRIN 81 MG PO SCH (09:17)
[2023-01-08] MEDS: CARBIDOPA-LEVODOPA ER 50-200MG 1 EACH TABLET.ER PO SCH ×3 (09:17→20:28)
[2023-01-08] MEDS: metFORMIN 500 MG TAB PO SCH ×2 (09:17→17:27)
[2023-01-08] MEDS: SENNOSIDES-DOCUSATE SODIUM 1 EACH TAB PO SCH ×2 (09:17→16:25)
[2023-01-08] MEDS: hydroCHLOROthiazide 25 MG TAB PO SCH (09:17)
[2023-01-08] MEDS: FERROUS SULFATE 325 MG TAB PO SCH (09:17)
[2023-01-08] MEDS: GABAPENTIN 100 MG CAP PO SCH ×4 (09:21→20:27)
[2023-01-08 13:00] LABS: Glucose,Whole Blood 148 mg/dL (70-110)
[2023-01-08] MEDS: CHOLECALCIFEROL 25 MCG (1000 IU) TABLET PO SCH (13:36)
[2023-01-08 17:05] LABS: Glucose,Whole Blood 123 mg/dL (70-110)
[2023-01-08] MEDS: SODIUM CHLORIDE 0.9% 1,000 ML IV SCH (20:26)
[2023-01-08] MEDS: ATORVASTATIN 40 MG TAB PO SCH (20:27)
[2023-01-08 20:51] LABS: Glucose,Whole Blood 128 mg/dL (70-110)
--- NOTE | 2023-01-09 00:05 | P.PN ---
Subjective This is a pleasant 87 years FEMALE with multiple medical problems as below. Chest past medical history of diabetes mellitus, osteoarthritis, depression, Parkinson disease, hyperlipidemia, hypothyroidism, Patient is confused and poor historian. Patient comes from half-way from [facility] after she fell there reportedly Family think the patient is not at herself over the last 2 days, she is confused and disoriented and not answer questions appropriately. As per report patient fell last November and she had 2 fracture on her cervical spine and she fractured her right ankle she was in the boot which was taken off recently and she is able to walk. Patient herself looks drowsy and confused, she follows commands but she denies any chest pain or dyspnea, no abdominal pain or urinary symptoms, she still complaining from back pain. Vitals stable and patient afebrile, blood pressure on the high side. 176/74 and 146/81. That showed mild anemia with 11.1 hemoglobin. Cystoscopy CBC, INR, BMP and liver enzymes were unremarkable. Troponin is negative. Lactic acid back to normal at 1.2. Urine analysis was suspicious of infection. Influenza A and type B, RSV, SARS (coronavirus) are undetected EKG showing normal sinus rhythm at [address]-T changes CT of the head and cervical spine, no acute intracranial hemorrhage or mass eff ect or midline shift. There is minimally displaced fracture involving C2 fracture involving the base of the dens and is slightly displaced Chest x-ray: No acute process. Patient already admitted with orthopedic consult for cervical fracture 01/09/2023 Patient is confused than he yesterday but awake and answers questions. Heart: In a Place. at bedside. No new complaint. No abdominal pain. Urine culture still pending showing gram-negative bacilli. Patient remains on ceftriaxone. We will ask for physical therapy evaluation. Orthopedic team evaluated the patient, Objective - Vital Signs Vital signs: Vital Signs Temp 97.8 F 01/08/23 06:40 Pulse 62 01/08/23 06:40 Resp 17 01/08/23 06:40 BP 111/67 01/08/23 06:40 Pulse Ox 98 01/08/23 07:53 FiO2 Intake & Output 01/07/23 01/08/23 01/08/23 18:59 06:59 18:59 Intake Total 480 Output Total 600 200 Balance -120 -200 Intake: Oral 480 Output: Urine 600 200 Other: Voiding Method Diaper Diaper Diaper Incontinent Incontinent Incontinent External Catheter External Catheter External Catheter # Voids 1 # Bowel Movements 1 0 - Exam -GENERAL: The patient is alert , still confused but less than yesterday, not in any acute distress. Well developed, well nourished. HEENT: Pupils are round and equally reacting to light. EOMI. No scleral icterus. No conjunctival pallor. Normocephalic, atraumatic. No pharyngeal erythema. No thyromegaly. CARDIOVASCULAR: S1 and S2 present. No murmurs, rubs, or gallops. PULMONARY: Chest is clear to auscultation, no wheezing . no crackles. ABDOMEN: Soft, nontender, nondistended, normoactive bowel sounds. No palpable organomegaly. MUSCULOSKELETAL: No joint swelling or deformity. EXTREMITIES: No cyanosis, clubbing, . No leg edema. NEUROLOGICAL: Gross neurological examination did not reveal any focal deficits. SKIN: No rashes. no petechiae. - Labs CBC & Chem 7: 01/06/23 13:37 01/06/23 13:37 Labs: Abnormal Lab Results - Last 24 Hours (Table) 01/07/23 01/07/23 01/08/23 Range/Units 17:26 20:03 05:52 POC Glucose (mg/dL) 135 H 279 H 127 H (70-110) mg/dL 01/08/23 Range/Units 12:59 POC Glucose (mg/dL) 148 H (70-110) mg/dL Microbiology - Last 24 Hours (Table) 01/06/23 19:15 Urine Culture - Preliminary Urine,Catheterized Gram Neg Bacilli 01/06/23 13:15 Blood Culture - Preliminary Blood 01/06/23 13:30 Blood Culture - Preliminary Blood Assessment and Plan Assessment: AMS mostly Metabolic toxic/ encephalopathy Acute urinary tract infection Recent history of C2 and C3 etcher, CT showing minimally displaced fracture involving C2 fracture involving the base of the dens and is slightly displaced Diabetes mellitus Hypertension Hyperlipidemia History of osteoarthritis Hypothyroidism Plan: Continue with ceftriaxone, follow-up urine culture Consult ORTHOPEDIC TEAM were consulted from emergency room Continue [facility] for better blood pressure control Labs and medication were reviewed.. Continue same treatment. Continue with symptomatic treatment. Resume home medication. Monitor lytes and vitals. DVT and GI prophylaxis. Further recommendations depends on the clinical course of the patient DVT prophylaxis: Subcutaneous heparin GI Prophylaxis: Pepcid PT/OT: Pending Prognosis is guarded
[2023-01-09 06:08] LABS: Glucose,Whole Blood 116 mg/dL (70-110)
[2023-01-09] MEDS: ACETAMINOPHEN TAB 325 MG TAB PO PRN ×2 (06:10→15:19)
[2023-01-09] MEDS: LEVOTHYROXINE 100 MCG TAB PO SCH (06:10)
[2023-01-09] MEDS: FERROUS SULFATE 325 MG TAB PO SCH (08:01)
[2023-01-09] MEDS: GABAPENTIN 100 MG CAP PO SCH ×2 (08:01→15:18)
[2023-01-09] MEDS: ASPIRIN 81 MG PO SCH (08:01)
[2023-01-09] MEDS: metFORMIN 500 MG TAB PO SCH ×2 (08:01→18:44)
[2023-01-09] MEDS: carBAMazepine 200 MG TAB PO SCH ×2 (08:01→20:02)
[2023-01-09] MEDS: LACTULOSE 20 GM/30 ML CUP PO SCH (08:01)
[2023-01-09] MEDS: CITALOPRAM HYDROBROMIDE 20 MG TAB PO SCH (08:01)
[2023-01-09] MEDS: hydroCHLOROthiazide 25 MG TAB PO SCH (08:01)
[2023-01-09] MEDS: CARBIDOPA-LEVODOPA ER 50-200MG 1 EACH TABLET.ER PO SCH ×2 (08:01→15:19)
[2023-01-09] MEDS: SENNOSIDES-DOCUSATE SODIUM 1 EACH TAB PO SCH ×2 (08:02→17:34)
[2023-01-09 11:34] LABS: Glucose,Whole Blood 156 mg/dL (70-110)
[2023-01-09 12:23] LABS: Basophils % (A) 0 %; Eosinophils # (A) 0.1 k/uL (0-0.7); Eosinophils % (A) 2 %; HGB 11.7 gm/dL (11.4-16.0); Lymphocytes # (A) 0.8 k/uL (1.0-4.8); Lymphocytes % (A) 11 %; MCH 30.8 pg (25.0-35.0); MCHC 32.4 g/dL (31.0-37.0); Mean Platelet Volume 7.2; Monocytes # (A) 0.4 k/uL (0-1.0); Monocytes % (A) 5 %; Neutrophils # (A) 5.5 k/uL (1.3-7.7); Neutrophils % (A) 80 %; Platelet Count 426 k/uL (150-450); RBC 3.79 m/uL (3.80-5.40); RDW 14.3 % (11.5-15.5); WBC 6.9 k/uL (3.8-10.6)
[2023-01-09 12:34] LABS: African American GFR (CKD) >90 (>60 ml/min/1.73 sqM); Anion Gap 10 mmol/L; Blood Urea Nitrogen 15 mg/dL (7-17); Calcium 8.6 mg/dL (8.4-10.2); Carbon Dioxide 27 mmol/L (22-30); Chloride 98 mmol/L (98-107); Glucose 140 mg/dL (74-99); Non-African American GFR(CKD) 81 (>60 ml/min/1.73 sqM); Potassium 3.9 mmol/L (3.5-5.1); Sodium 135 mmol/L (137-145)
[2023-01-09] MEDS: CHOLECALCIFEROL 25 MCG (1000 IU) TABLET PO SCH (12:54)
[2023-01-09 17:26] LABS: Glucose,Whole Blood 139 mg/dL (70-110)
[2023-01-09] MEDS: ATORVASTATIN 40 MG TAB PO SCH (20:02)
[2023-01-09] MEDS: SODIUM CHLORIDE 0.9% 1,000 ML IV SCH (20:03)
[2023-01-09 20:29] LABS: Glucose,Whole Blood 108 mg/dL (70-110)
[2023-01-10] MEDS: CARBIDOPA-LEVODOPA ER 50-200MG 1 EACH TABLET.ER PO SCH ×4 (01:00→21:04)
[2023-01-10] MEDS: GABAPENTIN 100 MG CAP PO SCH ×4 (01:00→21:03)
[2023-01-10] MEDS: LEVOTHYROXINE 100 MCG TAB PO SCH (06:06)
[2023-01-10 06:07] LABS: Glucose,Whole Blood 115 mg/dL (70-110)
[2023-01-10] MEDS: CITALOPRAM HYDROBROMIDE 20 MG TAB PO SCH (09:07)
[2023-01-10] MEDS: metFORMIN 500 MG TAB PO SCH ×2 (09:07→17:17)
[2023-01-10] MEDS: SENNOSIDES-DOCUSATE SODIUM 1 EACH TAB PO SCH ×2 (09:07→17:17)
[2023-01-10] MEDS: ASPIRIN 81 MG PO SCH (09:08)
[2023-01-10] MEDS: FERROUS SULFATE 325 MG TAB PO SCH (09:08)
[2023-01-10] MEDS: carBAMazepine 200 MG TAB PO SCH ×2 (09:09→21:04)
[2023-01-10] MEDS: LACTULOSE 20 GM/30 ML CUP PO SCH (09:09)
[2023-01-10] MEDS: Acetaminophen-Codeine 300-30mg TAB PO PRN ×2 (10:54→21:09)
[2023-01-10 12:05] LABS: Glucose,Whole Blood 103 mg/dL (70-110)
--- NOTE | 2023-01-10 12:10 | P.PN ---
Subjective This is a pleasant 87 years FEMALE with multiple medical problems as below. Chest past medical history of diabetes mellitus, osteoarthritis, depression, Parkinson disease, hyperlipidemia, hypothyroidism, Patient is confused and poor historian. Patient comes from half-way from [facility] after she fell there reportedly Family think the patient is not at herself over the last 2 days, she is confused and disoriented and not answer questions appropriately. As per report patient fell last November and she had 2 fracture on her cervical spine and she fractured her right ankle she was in the boot which was taken off recently and she is able to walk. Patient herself looks drowsy and confused, she follows commands but she denies any chest pain or dyspnea, no abdominal pain or urinary symptoms, she still complaining from back pain. Vitals stable and patient afebrile, blood pressure on the high side. 176/74 and 146/81. That showed mild anemia with 11.1 hemoglobin. Cystoscopy CBC, INR, BMP and liver enzymes were unremarkable. Troponin is negative. Lactic acid back to normal at 1.2. Urine analysis was suspicious of infection. Influenza A and type B, RSV, SARS (coronavirus) are undetected EKG showing normal sinus rhythm at [address]-T changes CT of the head and cervical spine, no acute intracranial hemorrhage or mass eff ect or midline shift. There is minimally displaced fracture involving C2 fracture involving the base of the dens and is slightly displaced Chest x-ray: No acute process. Patient already admitted with orthopedic consult for cervical fracture 01/09/2023 Patient is confused than he yesterday but awake and answers questions. Heart: In a Place. at bedside. No new complaint. No abdominal pain. Urine culture still pending showing gram-negative bacilli. Patient remains on ceftriaxone. We will ask for physical therapy evaluation. Orthopedic team evaluated the patient, 01/10/2023 Patient was admitted with mental status changes secondary to UTI. She still been treated with ceftriaxone, urine culture is growing gram-negative bacilli Her confusion is improving slowly, but stopped back to normal. Therefore we deescalated her pain medication. Referring the case with plan for her to go to rehab when medically clear Orthopedic team evaluated the patient for her recent C2 to C3 fracture and the recommended to keep heart, and a Place still she meets her orthopedic as an outpatient. I talked to the patient and son at bedside confirmed to me is their appointment with the orthopedic at outside facility is on [place] [address] of insulin- dependent to follow-up with. Objective - Vital Signs Vital signs: Vital Signs Temp 97.7 F 01/09/23 06:50 Pulse 72 01/09/23 06:50 Resp 16 01/09/23 06:50 BP 108/69 01/09/23 06:50 Pulse Ox 98 01/09/23 07:47 FiO2 Intake & Output 01/08/23 01/09/23 01/09/23 18:59 06:59 18:59 Intake Total 118 Output Total 600 600 Balance -482 -600 Intake: Oral 118 Output: Urine 600 600 Other: Voiding Method Diaper Diaper Diaper Incontinent Incontinent Incontinent External Catheter External Catheter External Catheter # Voids 1 - Exam -GENERAL: The patient is alert , still confused but less than yesterday, not in any acute distress. Well developed, well nourished. HEENT: Pupils are round and equally reacting to light. EOMI. No scleral icterus. No conjunctival pallor. Normocephalic, atraumatic. No pharyngeal erythema. No thyromegaly. CARDIOVASCULAR: S1 and S2 present. No murmurs, rubs, or gallops. PULMONARY: Chest is clear to auscultation, no wheezing . no crackles. ABDOMEN: Soft, nontender, nondistended, normoactive bowel sounds. No palpable organomegaly. MUSCULOSKELETAL: No joint swelling or deformity. EXTREMITIES: No cyanosis, clubbing, . No leg edema. NEUROLOGICAL: Gross neurological examination did not reveal any focal deficits. SKIN: No rashes. no petechiae. - Labs CBC & Chem 7: 01/09/23 12:06 01/09/23 12:06 Labs: Abnormal Lab Results - Last 24 Hours (Table) 01/08/23 01/08/23 01/09/23 Range/Units 17:04 20:49 06:07 RBC (3.80-5.40) m/uL Lymphocytes # (1.0-4.8) k/uL Sodium (137-145) mmol/L Glucose (74-99) mg/dL POC Glucose (mg/dL) 123 H 128 H 116 H (70-110) mg/dL 01/09/23 01/09/23 01/09/23 Range/Units 11:32 12:06 12:06 RBC 3.79 L (3.80-5.40) m/uL Lymphocytes # 0.8 L (1.0-4.8) k/uL Sodium 135 L (137-145) mmol/L Glucose 140 H (74-99) mg/dL POC Glucose (mg/dL) 156 H (70-110) mg/dL Microbiology - Last 24 Hours (Table) 01/06/23 19:15 Urine Culture - Final Urine,Catheterized Escherichia coli 01/06/23 13:15 Blood Culture - Preliminary Blood 01/06/23 13:30 Blood Culture - Preliminary Blood Assessment and Plan Assessment: AMS mostly Metabolic toxic/ encephalopathy Acute urinary tract infection Recent history of C2 and C3 etcher, CT showing minimally displaced fracture involving C2 fracture involving the base of the dens and is slightly displaced Diabetes mellitus Hypertension Hyperlipidemia History of osteoarthritis Hypothyroidism Plan: Continue with ceftriaxone, follow-up urine culture Consult ORTHOPEDIC TEAM were consulted from emergency room Continue Norvasc for better blood pressure control Labs and medication were reviewed.. Continue same treatment. Continue with symptomatic treatment. Resume home medication. Monitor lytes and vitals. DVT and GI prophylaxis. Further recommendations depends on the clinical course of the patient DVT prophylaxis: Subcutaneous heparin GI Prophylaxis: Pepcid PT/OT: Pending Prognosis is guarded
[2023-01-10] MEDS: CHOLECALCIFEROL 25 MCG (1000 IU) TABLET PO SCH (12:43)
--- NOTE | 2023-01-10 16:01 | P.PN ---
Subjective Progress Note Date: 01/10/23 This is a pleasant 87 years FEMALE with multiple medical problems as below. Chest past medical history of diabetes mellitus, osteoarthritis, depression, Parkinson disease, hyperlipidemia, hypothyroidism, Patient is confused and poor historian. Patient comes from custodial from [facility] after she fell there reportedly Family think the patient is not at herself over the last 2 days, she is confused and disoriented and not answer questions appropriately. As per report patient fell last November and she had 2 fracture on her cervical spine and she fractured her right ankle she was in the boot which was taken off recently and she is able to walk. Patient herself looks drowsy and confused, she follows commands but she denies any chest pain or dyspnea, no abdominal pain or urinary symptoms, she still complaining from back pain. Vitals stable and patient afebrile, blood pressure on the high side. 176/74 and 146/81. That showed mild anemia with 11.1 hemoglobin. Cystoscopy CBC, INR, BMP and liver enzymes were unremarkable. Troponin is negative. Lactic acid back to normal at 1.2. Urine analysis was suspicious of infection. Influenza A and type B, RSV, SARS (coronavirus) are undetected EKG showing normal sinus rhythm at [address]-T changes CT of the head and cervical spine, no acute intracranial hemorrhage or mass effect or midline shift. There is minimally displaced fracture involving C2 fracture involving the base of the dens and is slightly displaced Chest x-ray: No acute process. Patient already admitted with orthopedic consult for cervical fracture 01/08/2023 Patient is confused than he yesterday but awake and answers questions. Heart: In a Place. at bedside. No new complaint. No abdominal pain. Urine culture still pending showing gram-negative bacilli. Patient remains on ceftriaxone. We will ask for physical therapy evaluation. Orthopedic team evaluated the patient, 01/09/2023 Patient was admitted with mental status changes secondary to UTI. She still been treated with ceftriaxone, urine culture is growing gram-negative bacilli Her confusion is improving slowly, but stopped back to normal. Therefore we deescalated her pain medication. Referring the case with plan for her to go to rehab when medically clear Orthopedic team evaluated the patient for her recent C2 to C3 fracture and the recommended to keep heart, and a Place still she meets her orthopedic as an outpatient. I talked to the patient and son at bedside confirmed to me is their appointment with the orthopedic at outside facility is on February 12 of insulin- dependent to follow-up with. 01/10/2023 Patient is seen and evaluated and follow-up currently sitting up in bed with her neck brace on. Orthopedics has evaluated the patient recommending continuing with the collar and outpatient follow-up. Patient is maintained on IV antibiotics and urine cultures have finalized with E. coli with sensitivities and will require oral antibiotics on discharge. Patient reports she was able to work with physical therapy and extremely weak and social work has been consulted as PT/OT therapy recommending subacute rehab. Insurance authorizations submitted and pending at this time. Patient is afebrile denies chest pain or shortness of breath. No reports of nausea or vomiting and is tolerating diet. Review of systems: Constitutional: No reports of fatigue, fever, or chills Cardiovascular: No reports of chest pain or palpitations Respiratory: No reports of shortness of breath or cough GI: No reports of nausea, vomiting, or diarrhea : No reports of dysuria or retention Neurovascular: reports of generalized weakness All medications have been reviewed Physical exam: GENERAL: The patient is alert , still confused but less than yesterday, not in any acute distress. Well developed, well nourished. HEENT: Pupils are round and equally reacting to light. EOMI. No scleral icterus. No conjunctival pallor. Normocephalic, atraumatic. No pharyngeal erythema. No thyromegaly. CARDIOVASCULAR: S1 and S2 present. No murmurs, rubs, or gallops. PULMONARY: Chest is clear to auscultation, no wheezing . no crackles. ABDOMEN: Soft, nontender, nondistended, normoactive bowel sounds. No palpable organomegaly. MUSCULOSKELETAL: No joint swelling or deformity. EXTREMITIES: No cyanosis, clubbing, . No leg edema. NEUROLOGICAL: Gross neurological examination did not reveal any focal deficits. SKIN: No rashes. no petechiae. Assessment: AMS mostly Metabolic toxic/ encephalopathy secondary to acute urinary tract infection, improved Acute urinary tract infection, present on admission with E. coli Recent history of C2 and C3 fracture, CT showing minimally displaced fracture involving C2 fracture involving the base of the dens and is slightly displaced Diabetes mellitus Hypertension Hyperlipidemia History of osteoarthritis Hypothyroidism GI prophylaxis DVT prophylaxis Full code Plan: Continue with ceftriaxone, urine culture finalized showing E. coli with sensitivities and will continue on oral antibiotics on discharge Orthopedics evaluated the patient recommending continuing with cervical collar and outpatient follow-up with no plans for intervention at this time Continue [facility] for better blood pressure control PT/OT therapy recommending rehab and awaiting insurance authorization for [facility]. Social work following and has submitted authorization. Patient normally lives at [facility] Prognosis is guarded Possible discharge in the next 24-48 hours The impression and plan of care has been dictated by Betzaida Brock, Nurse Practitioner as directed. Dr. Hamzah MD I have performed a history and examination and MDM of this patient, discussed the same with the dictator, and agree with the dictator's assessment and plan as written ,documented as a scribe. Based on total visit time, I have performed more than 50% of the visit. Objective - Vital Signs Vital signs: Vital Signs Temp 97.7 F 01/10/23 08:00 Pulse 69 01/10/23 08:00 Resp 18 01/10/23 08:00 BP 135/78 01/10/23 08:00 Pulse Ox 98 01/10/23 08:00 FiO2 Intake & Output 01/09/23 01/10/23 01/10/23 18:59 06:59 18:59 Intake Total 118 Output Total 250 700 700 Balance -132 -700 -700 Intake: Oral 118 Output: Urine 250 700 700 Other: Voiding Method Diaper Diaper Diaper Incontinent Incontinent Incontinent External Catheter External Catheter External Catheter # Voids 1 - Labs CBC & Chem 7: 01/09/23 12:06 01/09/23 12:06 Labs: Abnormal Lab Results - Last 24 Hours (Table) 01/09/23 01/09/23 01/10/23 Range/Units 12:06 17:25 06:06 Sodium 135 L (137-145) mmol/L Glucose 140 H (74-99) mg/dL POC Glucose (mg/dL) 139 H 115 H (70-110) mg/dL Microbiology - Last 24 Hours (Table) 01/06/23 13:15 Blood Culture - Preliminary Blood 01/06/23 13:30 Blood Culture - Preliminary Blood 01/06/23 19:15 Urine Culture - Final Urine,Catheterized Escherichia coli
[2023-01-10 17:10] LABS: Glucose,Whole Blood 127 mg/dL (70-110)
[2023-01-10 20:26] LABS: Glucose,Whole Blood 122 mg/dL (70-110)
[2023-01-10] MEDS: ATORVASTATIN 40 MG TAB PO SCH (21:03)
[2023-01-10] MEDS: SODIUM CHLORIDE 0.9% 1,000 ML IV SCH (21:06)
[2023-01-11 03:10] VITALS: RESP 17
[2023-01-11] MEDS: LEVOTHYROXINE 100 MCG TAB PO SCH (05:52)
[2023-01-11 06:07] LABS: Glucose,Whole Blood 127 mg/dL (70-110)
[2023-01-11] MEDS: LACTULOSE 20 GM/30 ML CUP PO SCH (08:00)
[2023-01-11] MEDS: GABAPENTIN 100 MG CAP PO SCH ×2 (08:00→16:27)
[2023-01-11] MEDS: SENNOSIDES-DOCUSATE SODIUM 1 EACH TAB PO SCH (08:00)
[2023-01-11] MEDS: CITALOPRAM HYDROBROMIDE 20 MG TAB PO SCH (08:01)
[2023-01-11] MEDS: FERROUS SULFATE 325 MG TAB PO SCH (08:01)
[2023-01-11] MEDS: CHOLECALCIFEROL 25 MCG (1000 IU) TABLET PO SCH (08:01)
[2023-01-11] MEDS: CARBIDOPA-LEVODOPA ER 50-200MG 1 EACH TABLET.ER PO SCH ×2 (08:01→16:27)
[2023-01-11] MEDS: ASPIRIN 81 MG PO SCH (08:01)
[2023-01-11] MEDS: metFORMIN 500 MG TAB PO SCH (08:01)
[2023-01-11] MEDS: carBAMazepine 200 MG TAB PO SCH (08:01)
[2023-01-11 12:34] LABS: Glucose,Whole Blood 111 mg/dL (70-110)
[2023-01-11 13:43] VITALS: BP 115/72; PULSE 87; TEMP 97.4
[2023-01-11] MEDS ORDERED: PHENAZOPYRIDINE 100 MG TAB PO STA (15:04)
--- NOTE | 2023-01-11 15:50 | P.DS ---
Providers Date of admission: 01/06/23 19:57 Expected date of discharge: 01/11/23 Attending physician: Michael Chaves MD Primary care physician: Ting Vazquez Hospital Course: Final diagnosis AMS mostly Metabolic toxic/ encephalopathy secondary to acute urinary tract infection, improved Acute urinary tract infection, present on admission with E. coli Recent history of C2 and C3 fracture, CT showing minimally displaced fracture involving C2 fracture involving the base of the dens and is slightly displaced Diabetes mellitus Hypertension Hyperlipidemia History of osteoarthritis Hypothyroidism GI prophylaxis DVT prophylaxis Full code Discharge disposition Patient is being discharged in a stable condition with guarded prognosis to [facility]. Patient will follow-up with Dr. Vazquez in the outpatient setting upon discharge. Patient is to continue with oral Ceftin 500 mg twice daily for the next 5 days to complete the course. Recommend outpatient follow- up with orthopedics as scheduled. Total time taken is greater than 35 minutes. Hospital course This is a 87 year-old female who was recently admitted with generalized weakness found to have an urinary tract infection and maintained on antibiotics. Orthopedics also evaluated the patient as patient had significant weakness and recent cervical fracture maintained on cervical collar. Patient was cleared by orthopedics for outpatient follow-up and recommend continue with the cervical collar. Urine cultures finalized showing E. coli with sensitivities and maintained on ceftriaxone and will continue Ceftin for 5 days to complete the course. Patient is instructed to follow-up with primary care provider on discharge as well. Patient normally resides at [facility] and [facility] return [facility] Patient is having some mild burning with urination and will give Pyridium as needed. Currently no reports of chest pain, shortness of breath, or palpitations. Patient is afebrile. No reports of nausea or vomiting and patient is tolerating diet. Patient will be going to [facility] today. Physical exam: Gen: This is a 87-year-old female who is awake, alert and oriented 3, well- developed, well-nourished HEENT: Head is atraumatic, normocephalic. Pupils equal, round. Sclerae is anicteric. NECK: Supple. No JVD. No lymphadenopathy. No thyromegaly. LUNGS: Clear to auscultation. No wheezes or rhonchi. No intercostal retracti ons. HEART: Regular rate and rhythm. No murmur. ABDOMEN: Soft. obese. Bowel sounds are present. No masses. No tenderness. EXTREMITIES: No pedal edema. No calf tenderness. NEUROLOGICAL: Patient is awake, alert and oriented x3. Cranial nerves 2 through 12 are grossly intact. diffusely weak Please refer to medication reconciliation sheet for a list of medications. The impression and plan of care has been dictated by Betzaida Brock, Nurse Practitioner as directed. Dr. Cam MD I have performed a history and examination and MDM of this patient, discussed the same with the dictator, and agree with the dictator's assessment and plan as written ,documented as a scribe. Based on total visit time, I have performed more than 50% of the visit. Patient Condition at Discharge: Fair Plan - Discharge Summary New Discharge Prescriptions: New cefUROXime axetiL [Ceftin] 500 mg PO BID 5 Days #10 tab Mag Hydrox/Al Hydrox/Simeth [Maalox] 15 ml PO Q6HR PRN ml PRN Reason: Indigestion Phenazopyridine [Pyridium] 100 mg PO TID PRN #9 tab PRN Reason: Pain Acetaminophen-Codeine 300-30mg [Tylenol w/codeine #3] 1 each PO Q6HR PRN #6 tab PRN Reason: Pain Gabapentin [Neurontin] 200 mg PO Q8HR #4 cap Continue metFORMIN HCL [Glucophage] 1,000 mg PO BID@0900,1700 Citalopram Hydrobromide [Citalopram HBr] 20 mg PO DAILY Calcium Carbonate [Calcium] 600 mg PO DAILY@1200 Aspirin [Adult Low Dose Aspirin EC] 81 mg PO DAILY Ondansetron [Zofran] 4 mg PO Q6H PRN PRN Reason: Nausea And Vomiting Acetaminophen [Tylenol 8 Hour] 650 mg PO Q6H PRN PRN Reason: Fever And/ Or Pain Calcium Carbonate/Vitamin D3 [Calcium 600 mg-D3 10 Mcg (400 Iu)] 1 cap PO BID@0900,1700 polyethylene glycoL 3350 [Miralax] 17 gm PO DAILY Ferrous Sulfate [Iron (65 MG Elemental)] 325 mg PO DAILY sitaGLIPtin [Januvia] 50 mg PO DAILY Simvastatin [Zocor] 40 mg PO HS Omeprazole 20 mg PO DAILY Ibuprofen [Motrin Ib] 300 mg PO Q6H Carbidopa-Levodopa ER 50-200Mg [Sinemet CR 50-200 mg] 1 tab PO Q8H carBAMazepine [TEGretol] 200 mg PO BID Sennosides/Docusate Sodium [Senna-S 8.6-50 mg Tablet] 2 tab PO BID@0900,1700 rOPINIRole HCL [Requip] 0.5 mg PO DAILY Levothyroxine Sodium [Synthroid] 100 mcg PO DAILY Lactulose [Cephulac] 20 gm PO DAILY Cholecalciferol [Vitamin D3 (25 Mcg = 1000 Iu)] 25 mcg PO DAILY@1200 Discontinued HYDROcodone/APAP 5-325MG [[place] 5-325] 1 tab PO TID PRN PRN Reason: Pain hydroCHLOROthiazide [Hydrodiuril] 25 mg PO DAILY Gabapentin [Neurontin] 200 mg PO Q8H Discharge Medication List Aspirin [Adult Low Dose Aspirin EC] 81 mg PO DAILY 10/04/20 [History] Calcium Carbonate [Calcium] 600 mg PO DAILY@1200 10/04/20 [History] Citalopram Hydrobromide [Citalopram HBr] 20 mg PO DAILY 10/04/20 [History] Omeprazole 20 mg PO DAILY 10/04/20 [History] Simvastatin [Zocor] 40 mg PO HS 10/04/20 [History] metFORMIN HCL [Glucophage] 1,000 mg PO BID@0900,1700 10/04/20 [History] sitaGLIPtin [Januvia] 50 mg PO DAILY 10/04/20 [History] Acetaminophen [Tylenol 8 Hour] 650 mg PO Q6H PRN 01/06/23 [History] Calcium Carbonate/Vitamin D3 [Calcium 600 mg-D3 10 Mcg (400 Iu)] 1 cap PO BID@0900,1700 01/06/23 [History] Carbidopa-Levodopa ER 50-200Mg [Sinemet CR 50-200 mg] 1 tab PO Q8H 01/06/23 [History] Cholecalciferol [Vitamin D3 (25 Mcg = 1000 Iu)] 25 mcg PO DAILY@1200 01/06/23 [History] Ferrous Sulfate [Iron (65 MG Elemental)] 325 mg PO DAILY 01/06/23 [History] Ibuprofen [Motrin Ib] 300 mg PO Q6H 01/06/23 [History] Lactulose [Cephulac] 20 gm PO DAILY 01/06/23 [History] Levothyroxine Sodium [Synthroid] 100 mcg PO DAILY 01/06/23 [History] Ondansetron [Zofran] 4 mg PO Q6H PRN 01/06/23 [History] Sennosides/Docusate Sodium [Senna-S 8.6-50 mg Tablet] 2 tab PO BID@0900,1700 01/06/23 [History] carBAMazepine [TEGretol] 200 mg PO BID 01/06/23 [History] polyethylene glycoL 3350 [Miralax] 17 gm PO DAILY 01/06/23 [History] rOPINIRole HCL [Requip] 0.5 mg PO DAILY 01/06/23 [History] Acetaminophen-Codeine 300-30mg [Tylenol w/codeine #3] 1 each PO Q6HR PRN #6 tab 01/11/23 [Rx] Gabapentin [Neurontin] 200 mg PO Q8HR #4 cap 01/11/23 [Rx] Mag Hydrox/Al Hydrox/Simeth [Maalox] 15 ml PO Q6HR PRN ml 01/11/23 [Rx] Phenazopyridine [Pyridium] 100 mg PO TID PRN #9 tab 01/11/23 [Rx] cefUROXime axetiL [Ceftin] 500 mg PO BID 5 Days #10 tab 01/11/23 [Rx] Follow up Appointment(s)/Referral(s): Ting Vazquez MD [Primary Care Provider] - 1-2 days
[2023-01-11] MEDS ORDERED: PHENAZOPYRIDINE 100 MG TAB PO SCH (16:00)
== END 2023-01-11 16:54 | DRG 689 ==
LOC: EC 12:57 → 4SSUR 19:57 → 6NMEDSUR 20:59
PROVIDERS: ADMIT Internal Medicine; ATTEND Internal Medicine
DX: N39.0 Urinary tract infection, site not specified (principal); G92.8 Other toxic encephalopathy; S12.100A Unspecified displaced fracture of second cervical vertebra, initial encounter for closed fracture; F05 Delirium due to known physiological condition; W19.XXXA Unspecified fall, initial encounter; F02.80 Dementia in other diseases classified elsewhere, unspecified severity, without behavioral disturbance, psychotic disturbance, mood disturbance, and anxiety; E03.9 Hypothyroidism, unspecified; B96.20 Unspecified Escherichia coli [E. coli] as the cause of diseases classified elsewhere; E05.90 Thyrotoxicosis, unspecified without thyrotoxic crisis or storm; I50.9 Heart failure, unspecified; E11.9 Type 2 diabetes mellitus without complications; I11.0 Hypertensive heart disease with heart failure; R29.6 Repeated falls; G20 Parkinson's disease; E78.5 Hyperlipidemia, unspecified; D64.9 Anemia, unspecified; Z20.822 Contact with and (suspected) exposure to COVID-19; Z79.890 Hormone replacement therapy; Z79.82 Long term (current) use of aspirin; Z79.84 Long term (current) use of oral hypoglycemic drugs; Y92.129 Unspecified place in nursing home as the place of occurrence of the external cause; Z79.899 Other long term (current) drug therapy; Z85.828 Personal history of other malignant neoplasm of skin; M19.90 Unspecified osteoarthritis, unspecified site; Z91.81 History of falling; Z88.8 Allergy status to other drugs, medicaments and biological substances
CPT/HCPCS: 36415; 51701; 70450; 71045; 72125; 80048; 80053; 81001; 83605; 84484; 85025; 85610; 85730; 87040; 87077; 87086; 87186; 87636; 93005; 94760; 96361; 96365; 96366; 99285

== ENCOUNTER 2023-04-01 18:53 | Emergency (ER) | payer MEDICARE ==
[2023-04-01 19:00] VITALS: TEMP 98.4
[2023-04-01] MEDS ORDERED: ONDANSETRON 4 MG/2 ML VIAL IVP STA (19:00)
[2023-04-01] MEDS ORDERED: SODIUM CHLORIDE 0.9% 500 ML 500 ML IV STA (19:00)
[2023-04-01] MEDS ORDERED: PANTOPRAZOLE 40 MG/10 ML VIAL IVP STA (19:00)
--- NOTE | 2023-04-01 19:20 | ED ---
GI Bleed HPI - General Chief complaint: GI Bleed Stated complaint: bleeding Time Seen by Provider: 04/01/23 19:00 Source: patient, RN notes reviewed, old records reviewed Mode of arrival: ambulatory Limitations: no limitations - History of Present Illness Initial comments: This is a 87-year-old female to the emergency department for evaluation of abdominal wall mass today. There was reported bleeding but there is no active currently bleeding now. Patient does have significant abdominal wall mass apple-sized mass to left lower quadrant. He does have history of skin cancer in this exact area and this does appear to be larger than prior. Patient is on blood thinners has no lightheadedness dizziness weakness abdominal pain or fevers. MD complaint: other (Left-sided abdominal wall mass) Radiation: none Quality: painless Consistency: constant Improves with: none Worsens with: none Associated Symptoms: abdominal pain (Abdominal wall mass) - Related Data Home Medications Medication Instructions Recorded Confirmed Aspirin [Adult Low Dose Aspirin EC] 81 mg PO DAILY 10/04/20 01/06/23 Calcium Carbonate [Calcium] 600 mg PO DAILY@1200 10/04/20 01/06/23 Citalopram Hydrobromide 20 mg PO DAILY 10/04/20 01/06/23 [Citalopram HBr] Omeprazole 20 mg PO DAILY 10/04/20 01/06/23 Simvastatin [Zocor] 40 mg PO HS 10/04/20 01/06/23 metFORMIN HCL [Glucophage] 1,000 mg PO BID@0900,1700 10/04/20 01/06/23 sitaGLIPtin [Januvia] 50 mg PO DAILY 10/04/20 01/06/23 Acetaminophen [Tylenol 8 Hour] 650 mg PO Q6H PRN 01/06/23 01/06/23 Calcium Carbonate/Vitamin D3 1 cap PO BID@0900,1700 01/06/23 01/06/23 [Calcium 600 mg-D3 10 Mcg (400 Iu)] Carbidopa-Levodopa ER 50-200Mg 1 tab PO Q8H 01/06/23 01/06/23 [Sinemet CR 50-200 mg] Cholecalciferol [Vitamin D3 (25 25 mcg PO DAILY@1200 01/06/23 01/06/23 Mcg = 1000 Iu)] Ferrous Sulfate [Iron (65 MG 325 mg PO DAILY 01/06/23 01/06/23 Elemental)] Ibuprofen [Motrin Ib] 300 mg PO Q6H 01/06/23 01/06/23 Lactulose [Cephulac] 20 gm PO DAILY 01/06/23 01/06/23 Levothyroxine Sodium [Synthroid] 100 mcg PO DAILY 01/06/23 01/06/23 Ondansetron [Zofran] 4 mg PO Q6H PRN 01/06/23 01/06/23 Sennosides/Docusate Sodium 2 tab PO BID@0900,1700 01/06/23 01/06/23 [Senna-S 8.6-50 mg Tablet] carBAMazepine [TEGretol] 200 mg PO BID 01/06/23 01/06/23 polyethylene glycoL 3350 [Miralax] 17 gm PO DAILY 01/06/23 01/06/23 rOPINIRole HCL [Requip] 0.5 mg PO DAILY 01/06/23 01/06/23 Previous Rx's Medication Instructions Recorded Acetaminophen-Codeine 300-30mg 1 each PO Q6HR PRN #6 tab 01/11/23 [Tylenol w/codeine #3] Gabapentin [Neurontin] 200 mg PO Q8HR #4 cap 01/11/23 Mag Hydrox/Al Hydrox/Simeth 15 ml PO Q6HR PRN ml 01/11/23 [Maalox] Phenazopyridine [Pyridium] 100 mg PO TID PRN #9 tab 01/11/23 cefUROXime axetiL [Ceftin] 500 mg PO BID 5 Days #10 tab 01/11/23 Allergies Allergy/AdvReac Type Severity Reaction Status Date / Time lidocaine Allergy Confusion Verified 04/01/23 18:58 Review of Systems ROS Statement: Those systems with pertinent positive or pertinent negative responses have been documented in the HPI. ROS Other: All systems not noted in ROS Statement are negative. Past Medical History Past Medical History: Cancer, Diabetes Mellitus, Musculoskeletal Disorder, Ost eoarthritis (OA) Additional Past Medical History / Comment(s): basal cell skin cancer History of Any Multi-Drug Resistant Organisms: None Reported Past Surgical History: Orthopedic Surgery Additional Past Surgical History / Comment(s): ORIF right hip, ORIF right wrist, ORIF right ankle Past Anesthesia/Blood Transfusion Reactions: No Reported Reaction Past Psychological History: No Psychological Hx Reported Smoking Status: Never smoker Past Alcohol Use History: None Reported Past Drug Use History: None Reported - Past Family History Mother Family Medical History: No Reported History General Exam Limitations: no limitations General appearance: alert, in no apparent distress Head exam: Present: atraumatic, normocephalic, normal inspection Eye exam: Present: normal appearance, PERRL, EOMI. Absent: scleral icterus, conjunctival injection, periorbital swelling ENT exam: Present: normal exam, mucous membranes moist Neck exam: Present: normal inspection. Absent: tenderness, meningismus, lymphadenopathy Respiratory exam: Present: normal lung sounds bilaterally. Absent: respiratory distress, wheezes, rales, rhonchi, stridor Cardiovascular Exam: Present: regular rate, normal rhythm, normal heart sounds. Absent: systolic murmur, diastolic murmur, rubs, gallop, clicks GI/Abdominal exam: Present: soft, normal bowel sounds, other (Significant mass to left lower abdomen left pelvic area). Absent: distended, tenderness, guarding, rebound, rigid Extremities exam: Present: normal inspection, full ROM, normal capillary refill. Absent: tenderness, pedal edema, joint swelling, calf tenderness Back exam: Present: normal inspection Neurological exam: Present: alert, oriented X3, CN II-XII intact Psychiatric exam: Present: normal affect, normal mood Skin exam: Present: warm, dry, intact, normal color. Absent: rash Course Vital Signs 04/01/23 04/01/23 18:55 22:34 Temperature 98.4 F 98.4 F Pulse Rate 86 87 Respiratory 18 16 Rate Blood Pressure 141/83 150/87 O2 Sat by Pulse 99 98 Oximetry - Reevaluation(s) Reevaluation #1: 04/02/23 00:54 Medical records reviewed Reevaluation #2: 04/02/23 00:54 Patient is not here for GI bleed but is here for evaluation of abdominal wall mass with history of mass Reevaluation #3: 04/02/23 00:55 Patient informed results and questions answered Reevaluation #4: 04/02/23 00:55 Was pt. sent in by a medical professional or institution (, PA, COMPUTER GAME TESTER, urgent care, hospital, or skilled nursing...) When possible be specific @ -no Did you speak to anyone other than the patient for history (EMS, parent, family, police, friend...)? What history was obtained from this source @ -no Did you review nursing and triage notes (agree or disagree)? Why? @ -agree Are old charts reviewed (outside hosp., previous admission, EMS record, old EKG, old radiological studies, urgent care reports/EKG's, skilled nursing records)? Report findings @ -yes Differential Diagnosis (chest pain, altered mental status, abdominal pain women, abdominal pain men, vaginal bleeding, weakness, fever, dyspnea, syncope, headache, dizziness, GI bleed, back pain, seizure, CVA, palpatations, mental health, musculoskeletal)? @ -prior EKG interpreted by me (3pts min.). @ -no X-rays interpreted by me (1pt min.). @ -no CT interpreted by me (1pt min.). @ -yes U/S interpreted by me (1pt. min.). @ -no What testing was considered but not performed or refused? (CT, X-rays, U/S, labs)? Why? @ -none What meds were considered but not given or refused? Why? @ -none Did you discuss the management of the patient with other professionals (ingrid rodriguez i.e. , PA, COMPUTER GAME TESTER, lab, RT, psych nurse, health social work professor, virology teacher, teacher, landcare officer, case preparer and liner)? Give summary @ -no Was smoking cessation discussed for >3mins.? @ -no Was critical care preformed (if so, how long)? @ -no Were there social determinants of health that impacted care today? How? (Homelessness, low income, unemployed, alcoholism, drug addiction, transportation, low edu. Level, literacy, decrease access to med. care, group home, rehab)? @ -none Was there de-escalation of care discussed even if they declined (Discuss DNR or withdrawal of care, Hospice)? DNR status @ -no What co-morbidities impacted this encounter? (DM, HTN, Smoking, COPD, CAD, Cancer, CVA, ARF, Chemo, Hep., AIDS, mental health diagnosis, sleep apnea, morbid obesity)? @ -none Was patient admitted / discharged? Hospital course, mention meds given and route, prescriptions, significant lab abnormalities, going to OR and other pertinent info. @ - 87 female to the emergency department for evaluation of abdominal mass recurrent abdominal wall mass, patient will continue outpatient follow-up for treatment of mass Discharge Undiagnosed new problem with uncertain prognosis? @ -no Drug Therapy requiring intensive monitoring for toxicity (Heparin, Nitro, Insulin, Cardizem)? @ -no Were any procedures done? @ -no Diagnosis/symptom? @ -Abdominal wall mass Acute, or Chronic, or Acute on Chronic? @ -Acute Uncomplicated (without systemic symptoms) or Complicated (systemic symptoms)? @ -Complicated Side effects of treatment? @ -no Exacerbation, Progression, or Severe Exacerbation? @ -exacerbation Poses a threat to life or bodily function? How? (Chest pain, [place], CO, pneumonia, PE, COPD, DKA, ARF, appy, cholecystitis, CVA, Diverticulitis, Homicidal, Suicidal, threat to staff... and all critical care pts) @ -yes Medical Decision Making - Medical Decision Making 87 female to the emergency department for evaluation of abdominal mass recurrent abdominal wall mass, patient will continue outpatient follow-up for treatment of mass - Lab Data Result diagrams: 04/01/23 19:26 04/01/23 19:26 Lab Results 04/01/23 04/01/23 04/01/23 Range/Units 19:23 19:26 19:26 WBC 8.1 (3.8-10.6) k/uL RBC 3.64 L (3.80-5.40) m/uL Hgb 11.1 L (11.4-16.0) gm/dL Hct 34.6 (34.0-46.0) % MCV 95.1 (80.0-100.0) fL MCH 30.5 (25.0-35.0) pg MCHC 32.0 (31.0-37.0) g/dL RDW 13.6 (11.5-15.5) % Plt Count 414 (150-450) k/uL MPV 6.9 Neutrophils % 78 % Lymphocytes % 10 % Monocytes % 6 % Eosinophils % 4 % Basophils % 0 % Neutrophils # 6.3 (1.3-7.7) k/uL Lymphocytes # 0.9 L (1.0-4.8) k/uL Monocytes # 0.5 (0-1.0) k/uL Eosinophils # 0.4 (0-0.7) k/uL Basophils # 0.0 (0-0.2) k/uL PT 10.1 (9.0-12.0) sec INR 0.9 (<1.2) APTT 23.1 (22.0-30.0) sec Sodium (137-145) mmol/L Potassium (3.5-5.1) mmol/L Chloride (98-107) mmol/L Carbon Dioxide (22-30) mmol/L Anion Gap mmol/L BUN (7-17) mg/dL Creatinine (0.52-1.04) mg/dL Est GFR (CKD-EPI)AfAm (>60 ml/min/1.73 sqM) Est GFR (CKD-EPI)NonAf (>60 ml/min/1.73 sqM) Glucose (74-99) mg/dL Calcium (8.4-10.2) mg/dL Magnesium (1.6-2.3) mg/dL Total Bilirubin (0.2-1.3) mg/dL AST (14-36) U/L ALT (4-34) U/L Alkaline Phosphatase (38-126) U/L Troponin I (0.000-0.034) ng/mL Total Protein (6.3-8.2) g/dL Albumin (3.5-5.0) g/dL Blood Type A Positive Blood Type Confirm Blood Type Recheck No Previous Record Bld Type Recheck Status CABO Indicated Antibody Screen NEGATIVE Spec Expiration Date 04/04/2023 - 232204/01/23 04/01/23 04/01/23 Range/Units 19:26 19:26 20:14 WBC (3.8-10.6) k/uL RBC (3.80-5.40) m/uL Hgb (11.4-16.0) gm/dL Hct (34.0-46.0) % MCV (80.0-100.0) fL MCH (25.0-35.0) pg MCHC (31.0-37.0) g/dL RDW (11.5-15.5) % Plt Count (150-450) k/uL MPV Neutrophils % % Lymphocytes % % Monocytes % % Eosinophils % % Basophils % % Neutrophils # (1.3-7.7) k/uL Lymphocytes # (1.0-4.8) k/uL Monocytes # (0-1.0) k/uL Eosinophils # (0-0.7) k/uL Basophils # (0-0.2) k/uL PT (9.0-12.0) sec INR (<1.2) APTT (22.0-30.0) sec Sodium 137 (137-145) mmol/L Potassium 3.8 (3.5-5.1) mmol/L Chloride 103 (98-107) mmol/L Carbon Dioxide 27 (22-30) mmol/L Anion Gap 7 mmol/L BUN 23 H (7-17) mg/dL Creatinine 0.77 (0.52-1.04) mg/dL Est GFR (CKD-EPI)AfAm 81 (>60 ml/min/1.73 sqM) Est GFR (CKD-EPI)NonAf 70 (>60 ml/min/1.73 sqM) Glucose 196 H (74-99) mg/dL Calcium 9.5 (8.4-10.2) mg/dL Magnesium 1.6 (1.6-2.3) mg/dL Total Bilirubin 0.3 (0.2-1.3) mg/dL AST 23 (14-36) U/L ALT 13 (4-34) U/L Alkaline Phosphatase 66 (38-126) U/L Troponin I <0.012 (0.000-0.034) ng/mL Total Protein 6.6 (6.3-8.2) g/dL Albumin 3.5 (3.5-5.0) g/dL Blood Type Blood Type Confirm A Positive Blood Type Recheck Bld Type Recheck Status Antibody Screen Spec Expiration Date - Radiology Data Radiology results: report reviewed (CT of the abdomen and pelvis is significant for positive abdominal wall mass), image reviewed Disposition Clinical Impression: Gastrointestinal hemorrhage, Left lower quadrant abdominal wall mass Disposition: HOME SELF-CARE Condition: Good Instructions (If sedation given, give patient instructions): Gastrointestinal Bleeding (ED) Is patient prescribed a controlled substance at d/c from ED?: No Referrals: Ting Vazquez MD [Primary Care Provider] - 1-2 days Time of Disposition: 22:15
[2023-04-01 19:44] LABS: Basophils % (A) 0 %; Eosinophils # (A) 0.4 k/uL (0-0.7); Eosinophils % (A) 4 %; HCT 34.6 % (34.0-46.0); HGB 11.1 gm/dL (11.4-16.0); Lymphocytes # (A) 0.9 k/uL (1.0-4.8); Lymphocytes % (A) 10 %; MCH 30.5 pg (25.0-35.0); MCV 95.1 fL (80.0-100.0); Mean Platelet Volume 6.9; Monocytes # (A) 0.5 k/uL (0-1.0); Monocytes % (A) 6 %; Neutrophils # (A) 6.3 k/uL (1.3-7.7); Neutrophils % (A) 78 %; Platelet Count 414 k/uL (150-450); RBC 3.64 m/uL (3.80-5.40); RDW 13.6 % (11.5-15.5); WBC 8.1 k/uL (3.8-10.6)
[2023-04-01 19:56] LABS: INR 0.9 (<1.2); Partial Thromboplastin Time 23.1 sec (22.0-30.0); Prothrombin Time 10.1 sec (9.0-12.0)
[2023-04-01 20:16] LABS: ALT 13 U/L (4-34); AST 23 U/L (14-36); African American GFR (CKD) 81 (>60 ml/min/1.73 sqM); Albumin 3.5 g/dL (3.5-5.0); Alkaline Phosphatase 66 U/L (38-126); Anion Gap 7 mmol/L; Blood Urea Nitrogen 23 mg/dL (7-17); Calcium 9.5 mg/dL (8.4-10.2); Carbon Dioxide 27 mmol/L (22-30); Chloride 103 mmol/L (98-107); Glucose 196 mg/dL (74-99); Magnesium 1.6 mg/dL (1.6-2.3); Non-African American GFR(CKD) 70 (>60 ml/min/1.73 sqM); Potassium 3.8 mmol/L (3.5-5.1); Sodium 137 mmol/L (137-145); Total Bilirubin 0.3 mg/dL (0.2-1.3); Total Protein 6.6 g/dL (6.3-8.2)
--- NOTE | 2023-04-01 21:34 | CT ---
EXAMINATION TYPE: CT abdomen pelvis w con CT DLP: 1848 mGycm, Automated exposure control for dose reduction was used. DATE OF EXAM: 04/01/2023 9:22 PM COMPARISON: None. CLINICAL INDICATION:Female, 87 years old with history of mass,cyst,abdomen; rectal bleeding, mass/cys t on lower abdomen TECHNIQUE: Axial CT of the abdomen and pelvis. Sagittal and coronal reformats were created on a [employer] workstation. Contrast used:100 mL of Isovue 300 with IV Contrast, (none if empty) Oral contrast used: without Oral Contrast (none if empty) FINDINGS: LOWER CHEST: Heart is moderately enlarged for size with coronary artery calcifications. Remote right rib 11 and 12 fractures with callus formation. Remote left rib 4 through 7 fractures with callus form ation. ABDOMEN LIVER: Unremarkable GALLBLADDER AND BILE DUCTS: The gallbladder is surgically absent. PANCREAS: Unremarkable. SPLEEN: Unremarkable. ADRENAL GLANDS: Unremarkable. KIDNEYS AND URETERS: No evidence of hydronephrosis or renal calculus. The ureters are unremarkable. PELVIS BLADDER: Unremarkable REPRODUCTIVE: Unremarkable. ABDOMEN & PELVIS STOMACH AND BOWEL: No evidence of bowel obstruction. There is a large amount stool throughout the col on. PERITONEUM/RETROPERITONEUM: No evidence of pneumoperitoneum or free fluid. VASCULATURE: No evidence of aortic aneurysm. MUSCULOSKELETAL: No acute osseous abnormalities, right hip arthroplasty. Hardware is intact. Vertebro plasty changes to the L2 vertebral body. There is severe degeneration changes throughout the spine wi th osteophyte formation, disc space narrowing Schmorl's nodes compression deformities and facet arthr opathy. 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 LYMPH NODES: No gross evidence for lymphadenopathy. SOFT TISSUE/ABDOMINAL WALL: Large left anterior thigh/inguinal region heterogenous mass measuring 11. 0 x 9.8 cm point centimeters. IMPRESSION: 1. No evidence for gastrointestinal hemorrhage. 2. Large left anterior left thigh/inguinal region mass. Differential is rather broad including benig n and malignant etiologies. Correlate with clinical history. Clinical correlation and tissue sampling recommended for definitive diagnosis. 3. Mild bilateral rib fractures.
[2023-04-01 22:39] VITALS: BP 150/87; PULSE 87; RESP 16
== END 2023-04-01 23:04 | disposition home or self-care (01) ==
LOC: EC 18:53
DX: K92.2 Gastrointestinal hemorrhage, unspecified (principal); R19.04 Left lower quadrant abdominal swelling, mass and lump; E11.9 Type 2 diabetes mellitus without complications; M19.90 Unspecified osteoarthritis, unspecified site; Z88.8 Allergy status to other drugs, medicaments and biological substances; Z79.84 Long term (current) use of oral hypoglycemic drugs; Z79.82 Long term (current) use of aspirin; Z79.01 Long term (current) use of anticoagulants; Z79.899 Other long term (current) drug therapy
CPT/HCPCS: 36415; 86900; 86901; 80053; 83735; 84484; 85025; 85610; 85730; 86850; 74177; 99285; 96365; 96375 ×2; J2405; J0696; C9113; Q9967

== ENCOUNTER 2023-04-18 09:02 | Day surgery (SDC) | payer MEDICARE ==
[2023-04-18 10:09] LABS: Glucose,Whole Blood 127 mg/dL (70-110)
[2023-04-18 10:42] VITALS: BP 146/68; PULSE 68; RESP 16; TEMP 97.8
--- NOTE | 2023-04-18 10:44 | US ---
ULTRASOUND GUIDED CORE BIOPSY LEFT GROIN MASS: CLINICAL HISTORY: Left groin mass FINDINGS: The procedure was explained to the patient. The risks, complications, benefits and alternatives were discussed and any questions were answered. Informed consent was obtained. Patient was placed supin e on the ultrasound table and prepped and draped in the usual sterile fashion. Utilizing a 18-gauge core biopsy needle, 2 passes were made into the requested mass. Patient was stable throughout the procedure. Pathology is pending. All elements of maximal barrier technique were utilized. IMPRESSION: 1. Successful ultrasound guided biopsy left groin mass.
== END 2023-04-18 10:25 | disposition home or self-care (01) ==
LOC: RADPROMAIN 09:02
PROVIDERS: ATTEND Internal Medicine
DX: C44.509 Unspecified malignant neoplasm of skin of other part of trunk (principal)
CPT/HCPCS: 20206; 76942; 88305

== ENCOUNTER 2023-05-09 23:21 | Inpatient (IN) | payer MEDICARE ==
[2023-05-10 01:41] LABS: Appearance,Urine Clear (Clear); Bilirubin,Urine Negative (Negative); Blood,Urine Negative (Negative); Color,Urine Colorless; Glucose,Urine (UA) Negative (Negative); Ketones,Urine Negative (Negative); Leukocyte Esterase,Urine Negative (Negative); Nitrite,Urine Negative (Negative); PH, Urine 6.5 (5.0-8.0); Protein,Urine Negative (Negative); Specific Gravity,Urine 1.005 (1.001-1.035); Urobilinogen,Urine <2.0 mg/dL (<2.0)
[2023-05-10 01:44] LABS: Basophils % (A) 0 %; Eosinophils # (A) 0.1 k/uL (0-0.7); Eosinophils % (A) 1 %; HCT 30.5 % (34.0-46.0); HGB 9.7 gm/dL (11.4-16.0); Lymphocytes # (A) 0.5 k/uL (1.0-4.8); Lymphocytes % (A) 6 %; MCH 28.7 pg (25.0-35.0); MCHC 31.8 g/dL (31.0-37.0); MCV 90.4 fL (80.0-100.0); Mean Platelet Volume 7.1; Monocytes # (A) 0.6 k/uL (0-1.0); Monocytes % (A) 7 %; Neutrophils # (A) 6.7 k/uL (1.3-7.7); Neutrophils % (A) 83 %; Platelet Count 566 k/uL (150-450); RBC 3.37 m/uL (3.80-5.40); RDW 13.4 % (11.5-15.5); WBC 8.1 k/uL (3.8-10.6)
--- NOTE | 2023-05-10 02:06 | CT ---
EXAM: CT Head Without Intravenous Contrast CLINICAL HISTORY: ITS.REASON CT Reason: fall TECHNIQUE: Axial computed tomography images of the head/brain without intravenous contrast. CTDI is 29 mGy and DLP is 1025 mGy-cm. This CT exam was performed using one or more of the following dose reduction techniques: automated exposure control, adjustment of the mA and/or kV according to patient size, and/or use of iterative reconstruction technique. COMPARISON: CT Head dated 01/06/23 FINDINGS: Brain: Volume loss with enlarged ventricles and sulci. Mild periventricular white matter hypoattenuation likely reflects chronic small vessel disease. No hemorrhage. Ventricles: See above. Bones/joints: Unremarkable. No acute fracture. Soft tissues: Unremarkable. Sinuses: Unremarkable as visualized. No acute sinusitis. Mastoid air cells: Unremarkable as visualized. No mastoid effusion. Orbits: Bilateral intraocular lens replacement. IMPRESSION: No acute findings in the head/brain. EXAM: CT Cervical Spine Without Intravenous Contrast CLINICAL HISTORY: ITS.REASON CT Reason: fall TECHNIQUE: Axial computed tomography images of the cervical spine without intravenous contrast. CTDI is 29 mGy and DLP is 1025 mGy-cm. This CT exam was performed using one or more of the following dose reduction techniques: automated exposure control, adjustment of the mA and/or kV according to patient size, and/or use of iterative reconstruction technique. COMPARISON: CT Cervical Spine dated 01/06/23 FINDINGS: Vertebrae: Mild sclerosis and deformity related to the prior dens fracture. T2 inferior endplate mild compression deformity, similar to the prior. Discs/spinal canal/neural foramina: Multilevel degenerative changes. No spinal canal stenosis. Soft tissues: Unremarkable. IMPRESSION: 1. No evidence of acute fracture or malalignment. 2. Mild sclerosis and deformity related to the prior dens fracture, as seen on the prior 3. T2 inferior endplate mild compression deformity, similar to the prior.
[2023-05-10 02:07] LABS: ALT 10 U/L (4-34); AST 16 U/L (14-36); African American GFR (CKD) >90 (>60 ml/min/1.73 sqM); Albumin 3.2 g/dL (3.5-5.0); Alkaline Phosphatase 66 U/L (38-126); Anion Gap 9 mmol/L; Blood Urea Nitrogen 18 mg/dL (7-17); Calcium 8.9 mg/dL (8.4-10.2); Carbon Dioxide 28 mmol/L (22-30); Chloride 98 mmol/L (98-107); Glucose 181 mg/dL (74-99); Non-African American GFR(CKD) 81 (>60 ml/min/1.73 sqM); Sodium 135 mmol/L (137-145); Total Bilirubin 0.4 mg/dL (0.2-1.3); Total Protein 6.3 g/dL (6.3-8.2)
--- NOTE | 2023-05-10 03:06 | ED ---
Fall HPI - General Chief Complaint: Fall Stated Complaint: Fall Time Seen by Provider: 05/09/23 23:34 Source: patient, family, EMS Mode of arrival: EMS - History of Present Illness Initial Comments: 87-year-old female brought in after a fall from standing at home. Patient s tates that she felt very weak and lost her balance causing her to fall. She admits to headache injury. No loss of consciousness or blood thinners. No nausea, vomiting, dizziness. Patient does admit to neck pain and headache. She is placed in a c-collar. Patient currently has melanoma, her abdominal mass has been leaking fluid profusely. Patient reports that this has been getting gradually worse. She was taking oral antibiotics at home and recently completed the course, however she does not remember which antibiotic she was on. No fevers or chills. - Related Data Home Medications Medication Instructions Recorded Confirmed Aspirin [Adult Low Dose Aspirin EC] 81 mg PO DAILY 10/04/20 05/10/23 Citalopram Hydrobromide 20 mg PO DAILY 10/04/20 05/10/23 [Citalopram HBr] Omeprazole 20 mg PO DAILY 10/04/20 05/10/23 Simvastatin [Zocor] 40 mg PO HS 10/04/20 05/10/23 Calcium Carbonate/Vitamin D3 1 cap PO BID@0900,1700 01/06/23 05/10/23 [Calcium 600 mg-D3 10 Mcg (400 Iu)] Carbidopa-Levodopa ER 50-200Mg 1 tab PO Q8H 01/06/23 05/10/23 [Sinemet CR 50-200 mg] Cholecalciferol [Vitamin D3 (25 25 mcg PO DAILY@1200 01/06/23 05/10/23 Mcg = 1000 Iu)] Ferrous Sulfate [Iron (65 MG 325 mg PO DAILY 01/06/23 05/10/23 Elemental)] Ibuprofen [Motrin Ib] 600 mg PO Q6H PRN 01/06/23 05/10/23 Levothyroxine Sodium [Synthroid] 100 mcg PO DAILY 01/06/23 05/10/23 Zoledronic Acid/Mannitol-Water 5 mg IV Q365D 04/13/23 05/10/23 [Reclast 5 mg/100 ml Solution] Acetaminophen-Codeine 300-30mg 1 tab PO Q6HR PRN 05/10/23 05/10/23 [Tylenol w/codeine #3] Nitrofurantoin Monohyd/M-Cryst 100 mg PO DAILY 05/10/23 05/10/23 [Macrobid] rOPINIRole HCL [Requip] 1 mg PO HS 05/10/23 05/10/23 sitaGLIPtin PHOS/metFORMIN HCL 1 tab PO DAILY 05/10/23 05/10/23 [Janumet 50-1,000 mg Tablet] Previous Rx's Medication Instructions Recorded Gabapentin [Neurontin] 200 mg PO Q8HR #4 cap 01/11/23 Mag Hydrox/Al Hydrox/Simeth 15 ml PO Q6HR PRN ml 01/11/23 [Maalox] Allergies Allergy/AdvReac Type Severity Reaction Status Date / Time No Known Allergies Allergy Verified 05/10/23 08:15 Review of Systems ROS Statement: Those systems with pertinent positive or pertinent negative responses have been documented in the HPI. ROS Other: All systems not noted in ROS Statement are negative. Past Medical History Past Medical History: Cancer, Diabetes Mellitus, Musculoskeletal Disorder, Osteoarthritis (OA) Additional Past Medical History / Comment(s): basal cell skin cancer, metastatic melanoma j History of Any Multi-Drug Resistant Organisms: None Reported Past Surgical History: Orthopedic Surgery Additional Past Surgical History / Comment(s): ORIF right hip, ORIF right wrist, ORIF right ankle Past Anesthesia/Blood Transfusion Reactions: No Reported Reaction Past Psychological History: No Psychological Hx Reported Smoking Status: Never smoker Past Alcohol Use History: None Reported Past Drug Use History: None Reported - Past Family History Mother Family Medical History: No Reported History General Exam General appearance: alert, in no apparent distress Head exam: Present: atraumatic, normocephalic, normal inspection Eye exam: Present: normal appearance, EOMI Neck exam: Present: normal inspection. Absent: tenderness Respiratory exam: Present: normal lung sounds bilaterally. Absent: respiratory distress, wheezes, rales, rhonchi, stridor Cardiovascular Exam: Present: regular rate, normal rhythm, normal heart sounds. Absent: systolic murmur, diastolic murmur, rubs, gallop, clicks Neurological exam: Present: alert, oriented X3 Psychiatric exam: Present: normal affect, normal mood Skin exam: Present: other (Patient has an abdominal mass due to melanoma, this appears purulent with foul smelling discharge) Course Vital Signs 05/09/23 05/10/23 05/10/23 23:23 00:45 01:45 Temperature 97.6 F Pulse Rate 75 81 79 Respiratory 16 16 16 Rate Blood Pressure 128/63 115/49 113/50 O2 Sat by Pulse 96 98 97 Oximetry 05/10/23 05/10/23 07:35 08:06 Temperature 97.7 F Pulse Rate 69 82 Respiratory 18 18 Rate Blood Pressure 134/61 O2 Sat by Pulse 97 96 Oximetry Medical Decision Making - Medical Decision Making 87-year-old female brought in for evaluation after fall from standing. Admits to head injury, no loss of consciousness or blood thinners. Patient also states that she has melanoma, her mass to the abdomen has been draining and increasingly large amount of fluid. There is a foul odor also coming from the mass. On inspection this appears cellulitic. Patient has negative CT of the brain and cervical spine. She will be admitted for suspected cellulitic changes to her abdominal mass. She is started on Kefzol.Follow-up with PCP. Report back to ER with any new or worsening symptoms. Discussed return parameters and answered all questions. Patient conveyed verbal understanding and agreed to the plan. I discussed this case in detail with my attending Dr. Gimenez Was pt. sent in by a medical professional or institution (Dr. PA, POULTRY PROCESSOR, urgent care, hospital, or residential...) When possible be specific @ -No Did you speak to anyone other than the patient for history (EMS, parent, family, police, friend...)? What history was obtained from this source @ -History supplemented by son Did you review nursing and triage notes (agree or disagree)? Why? @ -I reviewed and agree with nursing and triage notes Were old charts reviewed (outside hosp., previous admission, EMS record, old EKG, old radiological studies, urgent care reports/EKG's, residential records)? Report findings @ -No old charts were reviewed Differential Diagnosis (chest pain, altered mental status, abdominal pain women, abdominal pain men, vaginal bleeding, weakness, fever, dyspnea, syncope, headache, dizziness, GI bleed, back pain, seizure, CVA, palpatations, mental health, musculoskeletal)? @ -not applicable EKG interpreted by me (3pts min.). @ -As above X-rays interpreted by me (1pt min.). @ -None done CT interpreted by me (1pt min.). @ -CT negative for acute intracranial process or cervical spine fracture U/S interpreted by me (1pt. min.). @ -None done What testing was considered but not performed or refused? (CT, X-rays, U/S, labs)? Why? @ -None What meds were considered but not given or refused? Why? @ -None Did you discuss the management of the patient with other professionals (professionals i.e. , PA, POULTRY PROCESSOR, lab, RT, psych nurse, certified social workers in health care, firearms instructor, teacher, canine enforcement officer, catalytic case operator)? Give summary @ -My attending spoke with the admitting physician who accepted Was smoking cessation discussed for >3mins.? @ -No Was critical care preformed (if so, how long)? @ -No Were there social determinants of health that impacted care today? How? (Homelessness, low income, unemployed, alcoholism, drug addiction, transportation, low edu. Level, literacy, decrease access to med. care, group home, rehab)? @ -No Was there de-escalation of care discussed even if they declined (Discuss DNR or withdrawal of care, Hospice)? DNR status @ -No What co-morbidities impacted this encounter? (DM, HTN, Smoking, COPD, CAD, Cancer, CVA, ARF, Chemo, Hep., AIDS, mental health diagnosis, sleep apnea, morbid obesity)? @ -Melanoma Was patient admitted / discharged? Hospital course, mention meds given and route, prescriptions, significant lab abnormalities, going to OR and other pertinent info. @ -See above Undiagnosed new problem with uncertain prognosis? @ -No Drug Therapy requiring intensive monitoring for toxicity (Heparin, Nitro, Insulin, Cardizem)? @ -No Were any procedures done? @ -No Diagnosis/symptom? @ -Cellulitis Acute, or Chronic, or Acute on Chronic? @ -Acute Uncomplicated (without systemic symptoms) or Complicated (systemic symptoms)? @ -Complicated Side effects of treatment? @ -No Exacerbation, Progression, or Severe Exacerbation? @ -No Poses a threat to life or bodily function? How? (Chest pain, [place], [place], pneumonia, PE, COPD, DKA, ARF, appy, cholecystitis, CVA, Diverticulitis, Homicidal, Suicidal, threat to staff... and all critical care pts) @ -Yes - Lab Data Result diagrams: 05/10/23 01:20 05/10/23 01:20 Lab Results 05/10/23 05/10/23 05/10/23 Range/Units 01:20 01:20 01:20 WBC 8.1 (3.8-10.6) k/uL RBC 3.37 L (3.80-5.40) m/uL Hgb 9.7 L (11.4-16.0) gm/dL Hct 30.5 L (34.0-46.0) % MCV 90.4 (80.0-100.0) fL MCH 28.7 (25.0-35.0) pg MCHC 31.8 (31.0-37.0) g/dL RDW 13.4 (11.5-15.5) % Plt Count 566 H (150-450) k/uL MPV 7.1 Neutrophils % 83 % Lymphocytes % 6 % Monocytes % 7 % Eosinophils % 1 % Basophils % 0 % Neutrophils # 6.7 (1.3-7.7) k/uL Lymphocytes # 0.5 L (1.0-4.8) k/uL Monocytes # 0.6 (0-1.0) k/uL Eosinophils # 0.1 (0-0.7) k/uL Basophils # 0.0 (0-0.2) k/uL Sodium 135 L (137-145) mmol/L Potassium 4.0 (3.5-5.1) mmol/L Chloride 98 (98-107) mmol/L Carbon Dioxide 28 (22-30) mmol/L Anion Gap 9 mmol/L BUN 18 H (7-17) mg/dL Creatinine 0.64 (0.52-1.04) mg/dL Est GFR (CKD-EPI)AfAm >90 (>60 ml/min/1.73 sqM) Est GFR (CKD-EPI)NonAf 81 (>60 ml/min/1.73 sqM) Glucose 181 H (74-99) mg/dL Plasma Lactic Acid Mika 1.7 (0.7-2.0) mmol/L Calcium 8.9 (8.4-10.2) mg/dL Total Bilirubin 0.4 (0.2-1.3) mg/dL AST 16 (14-36) U/L ALT 10 (4-34) U/L Alkaline Phosphatase 66 (38-126) U/L Total Protein 6.3 (6.3-8.2) g/dL Albumin 3.2 L (3.5-5.0) g/dL Urine Color Urine Appearance (Clear) Urine pH (5.0-8.0) Ur Specific Winifred (1.001-1.035) Urine Protein (Negative) Urine Glucose (UA) (Negative) Urine Ketones (Negative) Urine Blood (Negative) Urine Nitrite (Negative) Urine Bilirubin (Negative) Urine Urobilinogen (<2.0) mg/dL Ur Leukocyte Esterase (Negative) 05/10/23 Range/Units 01:20 WBC (3.8-10.6) k/uL RBC (3.80-5.40) m/uL Hgb (11.4-16.0) gm/dL Hct (34.0-46.0) % MCV (80.0-100.0) fL MCH (25.0-35.0) pg MCHC (31.0-37.0) g/dL RDW (11.5-15.5) % Plt Count (150-450) k/uL MPV Neutrophils % % Lymphocytes % % Monocytes % % Eosinophils % % Basophils % % Neutrophils # (1.3-7.7) k/uL Lymphocytes # (1.0-4.8) k/uL Monocytes # (0-1.0) k/uL Eosinophils # (0-0.7) k/uL Basophils # (0-0.2) k/uL Sodium (137-145) mmol/L Potassium (3.5-5.1) mmol/L Chloride (98-107) mmol/L Carbon Dioxide (22-30) mmol/L Anion Gap mmol/L BUN (7-17) mg/dL Creatinine (0.52-1.04) mg/dL Est GFR (CKD-EPI)AfAm (>60 ml/min/1.73 sqM) Est GFR (CKD-EPI)NonAf (>60 ml/min/1.73 sqM) Glucose (74-99) mg/dL Plasma Lactic Acid Mika (0.7-2.0) mmol/L Calcium (8.4-10.2) mg/dL Total Bilirubin (0.2-1.3) mg/dL AST (14-36) U/L ALT (4-34) U/L Alkaline Phosphatase (38-126) U/L Total Protein (6.3-8.2) g/dL Albumin (3.5-5.0) g/dL Urine Color Colorless Urine Appearance Clear (Clear) Urine pH 6.5 (5.0-8.0) Ur Specific Winifred 1.005 (1.001-1.035) Urine Protein Negative (Negative) Urine Glucose (UA) Negative (Negative) Urine Ketones Negative (Negative) Urine Blood Negative (Negative) Urine Nitrite Negative (Negative) Urine Bilirubin Negative (Negative) Urine Urobilinogen <2.0 (<2.0) mg/dL Ur Leukocyte Esterase Negative (Negative) Disposition Clinical Impression: Cellulitis Disposition: ADMITTED IP TO THIS [facility] Condition: Fair Time of Disposition: 03:05
[2023-05-10] MEDS ORDERED: HYDROcodone/APAP 5-325MG 1 EACH TAB PO PRN (04:06)
[2023-05-10] MEDS ORDERED: NALOXONE 0.4 MG/ML 1 ML VIAL IV PRN (04:06)
[2023-05-10] MEDS ORDERED: ACETAMINOPHEN TAB 325 MG TAB PO PRN (04:06)
[2023-05-10] MEDS: SODIUM CHLORIDE 0.9% 1,000 ML IV SCH ×2 (06:14→17:52)
[2023-05-10] MEDS ORDERED: Acetaminophen-Codeine 300-30mg TAB PO PRN (10:00)
[2023-05-10] MEDS ORDERED: DEXTROSE 50% SYRINGE 50 ML IVP PRN ×2 (10:01)
[2023-05-10] MEDS: CHOLECALCIFEROL 25 MCG (1000 IU) TABLET PO SCH (11:24)
[2023-05-10] MEDS: CARBIDOPA-LEVODOPA ER 50-200MG 1 EACH TABLET.ER PO SCH ×2 (11:25→17:50)
[2023-05-10 12:30] LABS: Glucose,Whole Blood 155 mg/dL (70-110)
[2023-05-10] MEDS: INSULIN ASPART (NovoLOG) 100 UNIT/ML VIAL SQ SCH ×4 (12:45→21:06)
--- NOTE | 2023-05-10 12:56 | P.HPIM ---
History of Present Illness H&P Date: 05/10/23 History of present illness; patient is 87-year-old lady with past medical signif icant for melanoma, hypothyroidism, hyperlipidemia presented to the ER after having a fall. Patient stated that she was all right when while at home she fell from a standing position. Patient stated that she only became weak and lost her balance, she didn't lose her consciousness. There was no complain of any jerking movement of her extremity, no seizure-like activity, no fecal or urinary incontinence. Patient currently on antibiotics for her cellulitis of her abdominal wall. Patient stated that she has been having a lot of discharge from her abdominal wall which is very foul-smelling. Denies any fever or chills. No complaints of nausea, and abdominal pain. Because of this fall, patient was brought to the ER Initial lab work done in the ER showed WBC 8.1, hemoglobin 9.7, platelet count 566, sodium 135, potassium 4, BUN 18, creatinine 0.64, glucose 181, albumin 3.2 [address]A negative for infection CT head negative for any acute intracranial process CT cervical spine negative for any fractures Patient admitted to medicine service REVIEW OF SYSTEMS: CONSTITUTIONAL: No fever, complaining of generalized weakness HEENT: No recent visual problems or hearing problems. Denied any sore throat. CARDIOVASCULAR: No chest pain, orthopnea, PND, no palpitations, no syncope. PULMONARY: No shortness of breath, no cough, no hemoptysis. GASTROINTESTINAL: No diarrhea, no nausea, no vomiting, no abdominal pain. NEUROLOGICAL: No headaches, no weakness, no numbness. HEMATOLOGICAL: Denies any bleeding or petechiae. GENITOURINARY: Denies any burning micturition, frequency, or urgency. MUSCULOSKELETAL/RHEUMATOLOGICAL: Denies any joint pain, swelling, or any muscle pain. ENDOCRINE: Denies any polyuria or polydipsia. The rest of the 14-point review of systems is negative. PHYSICAL EXAMINATION: GENERAL: The patient is alert and oriented x3, not in any acute distress. Well developed, well nourished. HEENT: Pupils are round and equally reacting to light. EOMI. No scleral icterus. No conjunctival pallor. Normocephalic, atraumatic. No pharyngeal erythema. No thyromegaly. CARDIOVASCULAR: S1 and S2 present. No murmurs, rubs, or gallops. PULMONARY: Chest is clear to auscultation, no wheezing or crackles. ABDOMEN: Left groin wound seen, normoactive bowel sounds. No palpable organomegaly. MUSCULOSKELETAL: No joint swelling or deformity. EXTREMITIES: No cyanosis, clubbing, or pedal edema. NEUROLOGICAL: Gross neurological examination did not reveal any focal deficits. SKIN: No rashes. Assessment and plan Abdominal wall cellulitis Fall Malignant melanoma Diabetes mellitus Hypertension Hyperlipidemia History of osteoarthritis Hypothyroidism Monitor vital signs Monitor CBC Monitor CMP Continue telemetry monitoring Follow-up on blood cultures Continue IV cefazolin Check orthostatics Fall precautions ID consulted Hematology oncology consulted PT and OT Labs and medication were reviewed.. Continue same treatment. Continue with symptomatic treatment. Resume home medication. Monitor labs and vitals. DVT and GI prophylaxis. Further recommendations as per clinical course of the patient Dictation was produced using [employer] dictation software. please excuse any grammatical, word or spelling errors. Past Medical History Past Medical History: Cancer, Diabetes Mellitus, Musculoskeletal Disorder, Osteoarthritis (OA) Additional Past Medical History / Comment(s): basal cell skin cancer, metastatic melanoma, Parkinsons, neck fracture History of Any Multi-Drug Resistant Organisms: None Reported Past Surgical History: Orthopedic Surgery Additional Past Surgical History / Comment(s): ORIF right hip, ORIF right wrist, ORIF right ankle Past Anesthesia/Blood Transfusion Reactions: No Reported Reaction Past Psychological History: No Psychological Hx Reported Smoking Status: Never smoker Past Alcohol Use History: None Reported Past Drug Use History: None Reported - Past Family History Mother Family Medical History: No Reported History Medications and Allergies Home Medications Medication Instructions Recorded Confirmed Type Aspirin [Adult Low Dose Aspirin EC] 81 mg PO DAILY 10/04/20 05/10/23 History Citalopram Hydrobromide 20 mg PO DAILY 10/04/20 05/10/23 History [Citalopram HBr] Omeprazole 20 mg PO DAILY 10/04/20 05/10/23 History Simvastatin [Zocor] 40 mg PO HS 10/04/20 05/10/23 History Calcium Carbonate/Vitamin D3 1 cap PO BID@0900,1700 01/06/23 05/10/23 History [Calcium 600 mg-D3 10 Mcg (400 Iu)] Carbidopa-Levodopa ER 50-200Mg 1 tab PO Q8H 01/06/23 05/10/23 History [Sinemet CR 50-200 mg] Cholecalciferol [Vitamin D3 (25 25 mcg PO DAILY@1200 01/06/23 05/10/23 History Mcg = 1000 Iu)] Ferrous Sulfate [Iron (65 MG 325 mg PO DAILY 01/06/23 05/10/23 History Elemental)] Ibuprofen [Motrin Ib] 600 mg PO Q6H PRN 01/06/23 05/10/23 History Levothyroxine Sodium [Synthroid] 100 mcg PO DAILY 01/06/23 05/10/23 History Gabapentin [Neurontin] 200 mg PO Q8HR #4 cap 01/11/23 05/10/23 Rx Mag Hydrox/Al Hydrox/Simeth 15 ml PO Q6HR PRN ml 01/11/23 05/10/23 Rx [Maalox] Zoledronic Acid/Mannitol-Water 5 mg IV Q365D 04/13/23 05/10/23 History [Reclast 5 mg/100 ml Solution] Acetaminophen-Codeine 300-30mg 1 tab PO Q6HR PRN 05/10/23 05/10/23 History [Tylenol w/codeine #3] Nitrofurantoin Monohyd/M-Cryst 100 mg PO DAILY 05/10/23 05/10/23 History [Macrobid] rOPINIRole HCL [Requip] 1 mg PO HS 05/10/23 05/10/23 History sitaGLIPtin PHOS/metFORMIN HCL 1 tab PO DAILY 05/10/23 05/10/23 History [Janumet 50-1,000 mg Tablet] Allergies Allergy/AdvReac Type Severity Reaction Status Date / Time No Known Allergies Allergy Verified 05/10/23 08:15 Physical Exam Vitals: Vital Signs Temp Pulse Pulse Resp BP BP Pulse Ox 05/10/23 08:31 97.6 F 67 19 138/84 98 05/10/23 08:06 82 18 96 05/10/23 07:35 97.7 F 69 18 134/61 97 05/10/23 01:45 79 16 113/50 97 05/10/23 00:45 81 16 115/49 98 05/09/23 23:23 97.6 F 75 16 128/63 96 Intake and Output 05/09/23 05/10/23 05/10/23 22:59 06:59 14:59 Other: Weight 80.739 kg Results CBC & Chem 7: 05/10/23 01:20 05/10/23 01:20 Labs: Abnormal Lab Results - Last 24 Hours (Table) 05/10/23 05/10/23 Range/Units 01:20 01:20 RBC 3.37 L (3.80-5.40) m/uL Hgb 9.7 L (11.4-16.0) gm/dL Hct 30.5 L (34.0-46.0) % Plt Count 566 H (150-450) k/uL Lymphocytes # 0.5 L (1.0-4.8) k/uL Sodium 135 L (137-145) mmol/L BUN 18 H (7-17) mg/dL Glucose 181 H (74-99) mg/dL Albumin 3.2 L (3.5-5.0) g/dL Thrombosis Risk Factor Assmnt - Choose All That Apply Any of the Below Risk Factors Present?: Yes Each Risk Factor Represents 3 Points: Age 75 years or older Thrombosis Risk Factor Assessment Total Risk Factor Score: 3 Thrombosis Risk Factor Assessment Level: Moderate Risk
[2023-05-10] MEDS: GABAPENTIN 100 MG CAP PO SCH ×2 (16:05→22:59)
[2023-05-10 17:14] LABS: Glucose,Whole Blood 167 mg/dL (70-110)
--- NOTE | 2023-05-10 20:11 | P.CONS ---
History of Present Illness - Reason for Consult Consult date: 05/10/23 hx melanoma Requesting physician: Amanda Farrell - Chief Complaint fall, left hip wound - History of Present Illness Ms. Cantu is an 87-year-old woman with a past medical history significant for Parkinson's disease and melanoma of the left calf status post wide local excision and sentinel lymph node biopsy in 2007 complicated by localized recurrence in the left groin treated with immunotherapy who presents for evaluation of left groin/abdominal wall mass. She had wide local excision of melanoma on the left calf with sentinel lymph node biopsy performed on 07/12/2007 with excisional biopsy of a left groin lymph node being negative for metastases. She had subsequent recurrence in the left inguinal region in 2020 with biopsy of the lesion being noted to be consistent with high-grade epithelioid melanoma. BRAF mutational analysis was noted to be negative. She states she received 4-5 treatments of nivolumab, which was discontinued due to thyroiditis. After being started on thyroid supplementation, immunotherapy was not restarted. The mass was noted to have interval reduction from 9 cm to about 5.6 cm. She received 2 separate surgical opinions, who did not recommend surgical resection. PET/CT on 02/26/2022 noted significantly reduced FDG avidity in the left inguinal region with mild FDG uptake in the medial plantar arch of the left foot and left suprapatellar region possibly concerning for degenerative changes versus metastatic disease. Since early 2022, she noted recurrent lesion in the left inguinal region/left abdominal wall that progressively grew. She notes persistent bleeding of the mass in the left abdominal wall to the point where she presented to [facility] ED on 04/01/2023.CT of the abdomen and pelvis at that time noted large left anterior thigh/inguinal heterogeneous mass measuring 11 cm in the largest dimension. There is no evidence of metastatic disease noted. PET/CT revealed 11.7 cm lesion in the left anterior thigh/inguinal region with an SUV of 41 and no evidence of distant metastatic disease. -Biopsy of the lesion on 04/18/2023 revealed chronic neoplasm that was nondiagnostic. 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 She has completed 10 fractions of palliative radiation on 05/01/23.It was recommended for additional attempt at biopsy of the lesion in the left groin region not only to confirm diagnosis, but also to send off testing for molecular profiling, however theres concern of potential for additional nondiagnostic biopsy given radiation therapy, which can increase tumor necrosis. Guardant 360 to assess circulating tumor DNA was ordered. Patient was recommended to start single agent nivolumab given prior treatment response and overall tolerance. Pt is awaiting prior authorization and has not started treatment yet. Patient presented to the emergency room for mechanical fall. CT head and cervical spine revealed no acute processes. Wound of left hip was noted and patient was admitted for further management of wound and concern for infection. Patient reports she has been having increasing drainage and swelling to left hip wound over the last couple weeks. Patient denies fever and chills. Does report some discomfort around left hip. Wound cultures have been obtained. Kefzol started. Blood cultures pending. Infectious disease following. Blood count stable, WBC 8.1, hemoglobin 9.7, platelets 566,000. Patient afebrile. At today's visit patient reports feeling well overall. Reporting mild left hip discomfort with drainage. No other reported complaints at this time Review of Systems 10 point ROS is negative except as stated in the HPI Past Medical History Past Medical History: Cancer, Diabetes Mellitus, Musculoskeletal Disorder, Oste oarthritis (OA) Additional Past Medical History / Comment(s): basal cell skin cancer, metastatic melanoma, Parkinsons, neck fracture History of Any Multi-Drug Resistant Organisms: None Reported Past Surgical History: Orthopedic Surgery Additional Past Surgical History / Comment(s): ORIF right hip, ORIF right wrist, ORIF right ankle Past Anesthesia/Blood Transfusion Reactions: No Reported Reaction Past Psychological History: No Psychological Hx Reported Smoking Status: Never smoker Past Alcohol Use History: None Reported Past Drug Use History: None Reported - Past Family History Mother Family Medical History: No Reported History Medications and Allergies Home Medications Medication Instructions Recorded Confirmed Type Aspirin [Adult Low Dose Aspirin EC] 81 mg PO DAILY 10/04/20 05/10/23 History Citalopram Hydrobromide 20 mg PO DAILY 10/04/20 05/10/23 History [Citalopram HBr] Omeprazole 20 mg PO DAILY 10/04/20 05/10/23 History Simvastatin [Zocor] 40 mg PO HS 10/04/20 05/10/23 History Calcium Carbonate/Vitamin D3 1 cap PO BID@0900,1700 01/06/23 05/10/23 History [Calcium 600 mg-D3 10 Mcg (400 Iu)] Carbidopa-Levodopa ER 50-200Mg 1 tab PO Q8H 01/06/23 05/10/23 History [Sinemet CR 50-200 mg] Cholecalciferol [Vitamin D3 (25 25 mcg PO DAILY@1200 01/06/23 05/10/23 History Mcg = 1000 Iu)] Ferrous Sulfate [Iron (65 MG 325 mg PO DAILY 01/06/23 05/10/23 History Elemental)] Ibuprofen [Motrin Ib] 600 mg PO Q6H PRN 01/06/23 05/10/23 History Levothyroxine Sodium [Synthroid] 100 mcg PO DAILY 01/06/23 05/10/23 History Gabapentin [Neurontin] 200 mg PO Q8HR #4 cap 01/11/23 05/10/23 Rx Mag Hydrox/Al Hydrox/Simeth 15 ml PO Q6HR PRN ml 01/11/23 05/10/23 Rx [Maalox] Zoledronic Acid/Mannitol-Water 5 mg IV Q365D 04/13/23 05/10/23 History [Reclast 5 mg/100 ml Solution] Acetaminophen-Codeine 300-30mg 1 tab PO Q6HR PRN 05/10/23 05/10/23 History [Tylenol w/codeine #3] Nitrofurantoin Monohyd/M-Cryst 100 mg PO DAILY 05/10/23 05/10/23 History [Macrobid] rOPINIRole HCL [Requip] 1 mg PO HS 05/10/23 05/10/23 History sitaGLIPtin PHOS/metFORMIN HCL 1 tab PO DAILY 05/10/23 05/10/23 History [Janumet 50-1,000 mg Tablet] Allergies Allergy/AdvReac Type Severity Reaction Status Date / Time No Known Allergies Allergy Verified 05/10/23 08:15 Physical Exam Vitals: Vital Signs Temp Pulse Pulse Resp BP BP Pulse Ox 05/10/23 12:32 97.6 F 61 19 148/71 98 05/10/23 08:31 97.6 F 67 19 138/84 98 05/10/23 08:06 82 18 96 05/10/23 07:35 97.7 F 69 18 134/61 97 05/10/23 01:45 79 16 113/50 97 05/10/23 00:45 81 16 115/49 98 05/09/23 23:23 97.6 F 75 16 128/63 96 Intake and Output 05/10/23 05/10/23 05/10/23 06:59 14:59 22:59 Intake Total 120 1000 Output Total 750 Balance 120 250 Intake: Intake, IV Titration 1000 Amount Sodium Chloride 0.9% 1, 900 000 ml @ 75 mls/hr IV . [id number] [facility] Rx#:[id number] ceFAZolin 1,000 mg In 100 Sodium Chloride 0.9% 50 ml @ 100 mls/hr IVPB Q8HR [facility] Rx#:[id number] Oral 120 Output: Urine 750 Other: Voiding Method Incontinent External Catheter Weight 80.739 kg - Constitutional General appearance: average body habitus, no acute distress - EENT Eyes: anicteric sclerae, EOMI ENT: hearing grossly normal - Respiratory Respiratory: bilateral: CTA - Cardiovascular Rhythm: regular Heart sounds: normal: S1, S2 - Gastrointestinal General gastrointestinal: soft, no tenderness - Integumentary warmth and induration noted to left lateral hip Integumentary: no cyanotic - Musculoskeletal induration and wound noted to left hip, mild tenderness to palpation - Psychiatric Psychiatric: A&O x's 3, appropriate affect, intact judgment & insight Results CBC & Chem 7: 05/10/23 01:20 05/10/23 01:20 Labs: Abnormal Lab Results - Last 24 Hours (Table) 05/10/23 05/10/23 05/10/23 Range/Units 01:20 01:20 12:28 RBC 3.37 L (3.80-5.40) m/uL Hgb 9.7 L (11.4-16.0) gm/dL Hct 30.5 L (34.0-46.0) % Plt Count 566 H (150-450) k/uL Lymphocytes # 0.5 L (1.0-4.8) k/uL Sodium 135 L (137-145) mmol/L BUN 18 H (7-17) mg/dL Glucose 181 H (74-99) mg/dL POC Glucose (mg/dL) 155 H (70-110) mg/dL Albumin 3.2 L (3.5-5.0) g/dL 05/10/23 Range/Units 17:13 RBC (3.80-5.40) m/uL Hgb (11.4-16.0) gm/dL Hct (34.0-46.0) % Plt Count (150-450) k/uL Lymphocytes # (1.0-4.8) k/uL Sodium (137-145) mmol/L BUN (7-17) mg/dL Glucose (74-99) mg/dL POC Glucose (mg/dL) 167 H (70-110) mg/dL Albumin (3.5-5.0) g/dL Comments: CT head/neck reviewed Assessment and Plan (1) Melanoma Current Visit: Yes Status: Acute Priority: High Code(s): C43.9 - MALIGNANT MELANOMA OF SKIN, UNSPECIFIED SNOMED Code(s): 265577072 (2) Cellulitis Current Visit: Yes Status: Acute Priority: High Code(s): L03.90 - CELLULITIS, UNSPECIFIED SNOMED Code(s): 105117267 Plan: Melanoma: -Full history in HPI -Completed 10 fractions of RT on 05/01/23 -Patient was recommended to start single agent nivolumab given prior treatment response and overall tolerance. Pt is awaiting prior authorization and has not started treatment yet. -Will schedule clinic f/u prior to starting treatment. Cellulitis/Hip wound: -Increasing discharge swelling to left hip wound -Blood and wound cultures ordered. Pt afebrile. Kefzol started, ID following. Wound may be caused by known melanoma of site, but agree with empiric abx and workup. Will await pending cultures. If positive treatment may need to be delayed to allow adequate healing, will continue to follow -Wound care consulted. Case management consulted for evaluation for at home wound care nurse attests: I have seen and examined patient, performed H&P, developed impression and plan of care. Discussed with dictator. Agree with documentation, dictated as a scribe
[2023-05-10] MEDS: ATORVASTATIN 20 MG TAB PO SCH (20:52)
[2023-05-10 21:07] LABS: Glucose,Whole Blood 151 mg/dL (70-110)
--- NOTE | 2023-05-10 22:59 | P.CONS ---
History of Present Illness - Reason for Consult Consult date: 05/10/23 Cellulitis Requesting physician: Betzaida Brock - Chief Complaint Weakness and not feeling well x one day - History of Present Illness Patient is a 87-year-old female with a past medical history Nupercaine for osteoarthritis diabetes mellitus did have history of metastatic melanoma in this patient presented to hospital after the patient have a fall from standing at home patient mention she felt very weak and lost her balance causing her to fall patient denies any headache loss of consciousness patient was brought into the ER. On presentation to the hospital was afebrile and no fever has been recorded subsequently patient did have a normal white count kidney function was normal urine was negative patient did have a left groin nonhealing wound from her metastatic melanoma which has been there for couple of weeks now patient did have a slightly increasing drainage from the left groin wound area with some surrounding swelling redness but denies any worsening pain at the patient mention not on any antibiotic in the recent past with concern for infected wound patient was started on cefazolin infectious disease was consulted for further management of antibiotic therapy, patient currently denies having any headache or URI symptoms no chest pain shortness of breath or cough no nausea vomiting no abdominal pain or diarrhea Review of Systems Positive point and negatives has been mentioned in the HPI, complete review of systems was performed and all other systems are negative Past Medical History Past Medical History: Cancer, Diabetes Mellitus, Musculoskeletal Disorder, Osteoarthritis (OA) Additional Past Medical History / Comment(s): basal cell skin cancer, metastatic melanoma, Parkinsons, neck fracture History of Any Multi-Drug Resistant Organisms: None Reported Past Surgical History: Orthopedic Surgery Additional Past Surgical History / Comment(s): ORIF right hip, ORIF right wrist, ORIF right ankle Past Anesthesia/Blood Transfusion Reactions: No Reported Reaction Past Psychological History: No Psychological Hx Reported Smoking Status: Never smoker Past Alcohol Use History: None Reported Past Drug Use History: None Reported - Past Family History Mother Family Medical History: No Reported History Medications and Allergies Home Medications Medication Instructions Recorded Confirmed Type Aspirin [Adult Low Dose Aspirin EC] 81 mg PO DAILY 10/04/20 05/10/23 History Citalopram Hydrobromide 20 mg PO DAILY 10/04/20 05/10/23 History [Citalopram HBr] Omeprazole 20 mg PO DAILY 10/04/20 05/10/23 History Simvastatin [Zocor] 40 mg PO HS 10/04/20 05/10/23 History Calcium Carbonate/Vitamin D3 1 cap PO BID@0900,1700 01/06/23 05/10/23 History [Calcium 600 mg-D3 10 Mcg (400 Iu)] Carbidopa-Levodopa ER 50-200Mg 1 tab PO Q8H 01/06/23 05/10/23 History [Sinemet CR 50-200 mg] Cholecalciferol [Vitamin D3 (25 25 mcg PO DAILY@1200 01/06/23 05/10/23 History Mcg = 1000 Iu)] Ferrous Sulfate [Iron (65 MG 325 mg PO DAILY 01/06/23 05/10/23 History Elemental)] Levothyroxine Sodium [Synthroid] 100 mcg PO DAILY 01/06/23 05/10/23 History Mag Hydrox/Al Hydrox/Simeth 15 ml PO Q6HR PRN ml 01/11/23 05/10/23 Rx [Maalox] Acetaminophen-Codeine 300-30mg 1 tab PO Q6HR PRN 05/10/23 05/10/23 History [Tylenol w/codeine #3] rOPINIRole HCL [Requip] 1 mg PO HS 05/10/23 05/10/23 History sitaGLIPtin PHOS/metFORMIN HCL 1 tab PO DAILY 05/10/23 05/10/23 History [Janumet 50-1,000 mg Tablet] Amoxic-Pot Clav 875-125Mg 1 tab PO Q12HR 10 Days #20 tab 05/15/23 Rx [Augmentin 875-125] Gabapentin [Neurontin] 200 mg PO Q8HR #4 cap 05/15/23 Rx HYDROcodone/APAP 5-325MG [[place] 1 each PO Q6HR PRN #4 tab 05/15/23 Rx 5-325] INSULIN ASPART (NovoLOG) [NovoLOG 0 unit SQ ACHS #0 each 05/15/23 Rx (formulary)] Allergies Allergy/AdvReac Type Severity Reaction Status Date / Time No Known Allergies Allergy Verified 05/10/23 08:15 Physical Exam Vitals: Vital Signs Temp Pulse Pulse Resp BP BP Pulse Ox 05/10/23 08:31 97.6 F 67 19 138/84 98 05/10/23 08:06 82 18 96 05/10/23 07:35 97.7 F 69 18 134/61 97 05/10/23 01:45 79 16 113/50 97 05/10/23 00:45 81 16 115/49 98 05/09/23 23:23 97.6 F 75 16 128/63 96 Intake and Output 05/09/23 05/10/23 05/10/23 22:59 06:59 14:59 Other: Voiding Method Incontinent External Catheter Weight 80.739 kg GENERAL DESCRIPTION: Elderly female lying in bed, no distress. No tachypnea or accessory muscle of respiration use. HEENT: Shows Pallor , no scleral icterus. Oral mucous membrane is dry. No pharyngeal erythema or thrush NECK: Trachea central, no thyromegaly. LUNGS: Unlabored breathing. Clear to auscultation anteriorly. No wheeze or crackle. HEART: S1, S2, regular rate and rhythm. No loud murmur ABDOMEN: Soft, no tenderness , guarding or rigidity, no organomegaly EXTREMITIES: Left groin wound with slough tissue minimal surrounding erythema no foul-smelling drainage SKIN: No rash, no masses palpable. NEUROLOGICAL: The patient is awake, alert, oriented x3, mood and affect normal. Results CBC & Chem 7: 05/14/23 06:41 05/14/23 06:41 Labs: Abnormal Lab Results - Last 24 Hours (Table) 05/10/23 05/10/23 Range/Units 01:20 01:20 RBC 3.37 L (3.80-5.40) m/uL Hgb 9.7 L (11.4-16.0) gm/dL Hct 30.5 L (34.0-46.0) % Plt Count 566 H (150-450) k/uL Lymphocytes # 0.5 L (1.0-4.8) k/uL Sodium 135 L (137-145) mmol/L BUN 18 H (7-17) mg/dL Glucose 181 H (74-99) mg/dL Albumin 3.2 L (3.5-5.0) g/dL Assessment and Plan (1) Cellulitis Status: Acute Priority: High Code(s): L03.90 - CELLULITIS, UNSPECIFIED SNOMED Code(s): 559806553 (2) Type 2 diabetes mellitus with other skin ulcer Status: Acute Code(s): E11.622 - TYPE 2 DIABETES MELLITUS WITH OTHER SKIN ULCER; L98.499 - NON-PRESSURE CHRONIC ULCER OF SKIN OF SITES W UNSP SEVERITY SNOMED Code(s): 259332634 Plan: 1patient with a nonhealing wound to the left groin area and this patient did have history of recurrent melanoma to the left groin, with a necrotic wound with some slough tissue at the base and surrounding erythema and foul-smelling drainage secondary infection not entirely excluded 2-aerobic and anaerobic culture has been obtained and results will be followed 3-discontinue cefazolin 4-start the patient on Unasyn 3 g every 6 hours We will follow on clinical condition and cultures to further adjust medication if needed Thank you for this consultation we will follow the patient along with you Dictation was produced using [employer] dictation software. please excuse any grammatical, word or spelling errors. Time with Patient: Greater than 30
[2023-05-11] MEDS: AMPICILLIN-SULBACTAM 3 GM in SODIUM CHLORIDE 0.9% 100 ML IVPB SCH ×4 (00:45→21:15)
[2023-05-11] MEDS: CARBIDOPA-LEVODOPA ER 50-200MG 1 EACH TABLET.ER PO SCH ×3 (00:53→18:06)
[2023-05-11] MEDS: LEVOTHYROXINE 100 MCG TAB PO SCH (06:06)
[2023-05-11 07:06] LABS: Glucose,Whole Blood 191 mg/dL (70-110)
[2023-05-11] MEDS: GABAPENTIN 100 MG CAP PO SCH ×3 (08:08→23:58)
[2023-05-11] MEDS: FERROUS SULFATE 325 MG TAB PO SCH (08:08)
[2023-05-11] MEDS: CITALOPRAM HYDROBROMIDE 20 MG TAB PO SCH (08:08)
[2023-05-11] MEDS: PANTOPRAZOLE 40 MG TABLET PO SCH (08:08)
[2023-05-11] MEDS: CHOLECALCIFEROL 25 MCG (1000 IU) TABLET PO SCH (08:08)
[2023-05-11] MEDS: INSULIN ASPART (NovoLOG) 100 UNIT/ML VIAL SQ SCH ×4 (08:08→21:16)
[2023-05-11] MEDS: ASPIRIN 81 MG PO SCH (08:08)
[2023-05-11] MEDS: SODIUM CHLORIDE 0.9% 1,000 ML IV SCH (08:09)
[2023-05-11] MEDS ORDERED: COLLAGENASE 250 UNIT/GM OINTMENT 30 GM TUBE TOPICAL SCH (09:45)
--- NOTE | 2023-05-11 10:35 | P.CONS ---
History of Present Illness - Reason for Consult Consult date: 05/11/23 wound care - History of Present Illness This is an 87-year-old patient being seen for a nonhealing ulceration to the left groin. Patient has a past medical history significant for Parkinson's, melanoma to the left calf Santyl node biopsy with a reoccurring open ulceration to the left groin. Patient presented for evaluation of left groin and abdominal wall mass. At this time patient has a open ulceration to the left groin measuring 3 x 3 x 0.2 cm. Significant amount of slough and nonviable tissue present with minimal granulation. It is suggested for the patient to have the left groin ulceration biopsied again to confirm diagnosis. Due to the potential of the ulceration being a malignancy aggressive treatment is not appropriate. Review Of Systems: Constitutional: No fever, no chills, no night sweats. No weight change. No weakness, fatigue or lethargy. No daytime sleepiness. Integumentary:reports wounds, no lesions. No rash or pruritus. No unusual bruising. No change in hair or nails. Physical exam: General Appearance: Alert, cooperative, no distress, appears stated age. Skin: See HPI all other Skin color, texture, tugor normal, no rashes or lesions. Neurologic: Alert oriented x3 Assessment: 1. Nonhealing ulceration left groin with muscle involvement without necrosis 2. Melanoma reoccurrence 3. Diabetes with skin ulceration Plan: 1. Due to the potential of malignancy aggressive treatment is not appropriate. We will utilize absorptive silver to manage drainage from the site. If the area is found not to be a malignant, reevaluation of treatment is appropriate. Utilize absorptive silver moistened, dry gauze, border foam change Sunday. Thank you for the consultation any questions to contact the wound care center DNP note has been reviewed and discussed with Dr. Hercules and the impression and plan of care has been directed as dictated. Past Medical History Past Medical History: Cancer, Diabetes Mellitus, Musculoskeletal Disorder, Osteoarthritis (OA) Additional Past Medical History / Comment(s): basal cell skin cancer, metastatic melanoma j History of Any Multi-Drug Resistant Organisms: None Reported Past Surgical History: Orthopedic Surgery Additional Past Surgical History / Comment(s): ORIF right hip, ORIF right wrist, ORIF right ankle Past Anesthesia/Blood Transfusion Reactions: No Reported Reaction Past Psychological History: No Psychological Hx Reported Smoking Status: Never smoker Past Alcohol Use History: None Reported Past Drug Use History: None Reported - Past Family History Mother Family Medical History: No Reported History Medications and Allergies Home Medications Medication Instructions Recorded Confirmed Type Aspirin [Adult Low Dose Aspirin EC] 81 mg PO DAILY 10/04/20 05/10/23 History Citalopram Hydrobromide 20 mg PO DAILY 10/04/20 05/10/23 History [Citalopram HBr] Omeprazole 20 mg PO DAILY 10/04/20 05/10/23 History Simvastatin [Zocor] 40 mg PO HS 10/04/20 05/10/23 History Calcium Carbonate/Vitamin D3 1 cap PO BID@0900,1700 01/06/23 05/10/23 History [Calcium 600 mg-D3 10 Mcg (400 Iu)] Carbidopa-Levodopa ER 50-200Mg 1 tab PO Q8H 01/06/23 05/10/23 History [Sinemet CR 50-200 mg] Cholecalciferol [Vitamin D3 (25 25 mcg PO DAILY@1200 01/06/23 05/10/23 History Mcg = 1000 Iu)] Ferrous Sulfate [Iron (65 MG 325 mg PO DAILY 01/06/23 05/10/23 History Elemental)] Ibuprofen [Motrin Ib] 600 mg PO Q6H PRN 01/06/23 05/10/23 History Levothyroxine Sodium [Synthroid] 100 mcg PO DAILY 01/06/23 05/10/23 History Gabapentin [Neurontin] 200 mg PO Q8HR #4 cap 01/11/23 05/10/23 Rx Mag Hydrox/Al Hydrox/Simeth 15 ml PO Q6HR PRN ml 01/11/23 05/10/23 Rx [Maalox] Zoledronic Acid/Mannitol-Water 5 mg IV Q365D 04/13/23 05/10/23 History [Reclast 5 mg/100 ml Solution] Acetaminophen-Codeine 300-30mg 1 tab PO Q6HR PRN 05/10/23 05/10/23 History [Tylenol w/codeine #3] Nitrofurantoin Monohyd/M-Cryst 100 mg PO DAILY 05/10/23 05/10/23 History [Macrobid] rOPINIRole HCL [Requip] 1 mg PO HS 05/10/23 05/10/23 History sitaGLIPtin PHOS/metFORMIN HCL 1 tab PO DAILY 05/10/23 05/10/23 History [Janumet 50-1,000 mg Tablet] Allergies Allergy/AdvReac Type Severity Reaction Status Date / Time No Known Allergies Allergy Verified 05/10/23 08:15 Physical Exam Vitals: Vital Signs Temp Pulse Resp BP Pulse Ox 05/11/23 06:58 96.9 F L 69 16 144/73 98 05/11/23 02:28 99.5 F 63 16 117/72 94 L 05/10/23 20:12 99.5 F 74 16 117/75 96 05/10/23 12:32 97.6 F 61 19 148/71 98 Intake and Output 05/10/23 05/11/23 05/11/23 22:59 06:59 14:59 Intake Total 1000 850 120 Output Total 1750 650 Balance -750 200 120 Intake: Intake, IV Titration 1000 850 Amount Ampicillin-Sulbactam 3 gm 100 In Sodium Chloride 0.9% 100 ml @ 200 mls/hr IVPB Q6HR [facility] Rx#:[id number] Sodium Chloride 0.9% 1, 900 750 000 ml @ 75 mls/hr IV . [id number] [facility] Rx#:[id number] ceFAZolin 1,000 mg In 100 Sodium Chloride 0.9% 50 ml @ 100 mls/hr IVPB Q8HR [facility] Rx#:[id number] Oral 120 Output: Urine 1750 650 Other: Voiding Method Diaper Diaper Incontinent Incontinent Results CBC & Chem 7: 05/10/23 01:20 05/10/23 01:20 Labs: Abnormal Lab Results - Last 24 Hours (Table) 05/10/23 05/10/23 05/10/23 Range/Units 01:20 12:28 17:13 POC Glucose (mg/dL) 155 H 167 H (70-110) mg/dL Hemoglobin A1c 7.1 H (<=6.0) % 05/10/23 05/11/23 Range/Units 21:01 06:53 POC Glucose (mg/dL) 151 H 191 H (70-110) mg/dL Hemoglobin A1c (<=6.0) % Microbiology - Last 24 Hours (Table) 05/10/23 11:35 Gram Stain - Preliminary Groin Wound Culture - Preliminary Assessment and Plan (1) 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
[2023-05-11 11:45] LABS: Glucose,Whole Blood 138 mg/dL (70-110)
--- NOTE | 2023-05-11 13:03 | CDI ---
Documentation Clarification Form Date: 05/11/2023 12:22:31 PM From: Leighann Archibald RN CCDS Phone: [phone] Admit Date: 05/10/2023 04:07:00 AM Patient Name: Eboni Cantu Visit Number: [id number] Discharge Date: ATTENTION: The Clinical Documentation Specialists (CDI) and [facility] Coding Staff appreciate your assistance in clarifying documentation. Please respond to the clarification below the line at the bottom and electronically sign. The CDI & [facility] Coding staff will review the response and follow-up if needed. Please note: Queries are made part of the Legal Health Record. If you have any questions, please contact the author of this message via ITS. Dr. Pablo Rush Conflicting documentation has been found in the medical record. As attending physician, please provide clarification. History/Risk Factors: 87-year-old female presents to the ED after a fall and hitting her head. Medical History: Malignant melanoma, DM, HTN, HLD and Hypothyroidism. 05/10, H&P. Clinical Indicators: H&P, 05/10: Cellulitis of her abdominal wall. Patient stated that she has been having a lot of discharge from her abdominal wall which is foul smelling. 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 Wound care, 05/11: Nonhealing ulceration left groin with muscle involvement without necrosis. Melanoma reoccurrence. Diabetes with skin ulceration. Treatment: Opticell Gel Fiber, Optifoam Gentle liquid, Wound culture , Ampicillin IVPB Please clarify location and type of wound/wounds that apply: [ ] Abdominal wall cellulitis due to malignant melanoma [ x ] Left groin non healing wound due to malignant melanoma [ ] Abdominal wall cellulitis due to DM [ ] Diabetes with skin ulceration please specify location. [ ] Other (please specify) [ ] Unable to determine (Template Last Revised: September 2020) MTDD
--- NOTE | 2023-05-11 13:35 | P.PN ---
Subjective Progress Note Date: 05/11/23 patient is 87-year-old lady with past medical significant for melanoma, hypothyroidism, hyperlipidemia presented to the ER after having a fall. Patient stated that she was all right when while at home she fell from a standing position. Patient stated that she only became weak and lost her balance, she didn't lose her consciousness. There was no complain of any jerking movement of her extremity, no seizure-like activity, no fecal or urinary incontinence. Patient currently on antibiotics for her cellulitis of her abdominal wall. Patient stated that she has been having a lot of discharge from her abdominal wall which is very foul-smelling. Denies any fever or chills. No complaints of nausea, and abdominal pain. Because of this fall, patient was brought to the ER Initial lab work done in the ER showed WBC 8.1, hemoglobin 9.7, platelet count 566, sodium 135, potassium 4, BUN 18, creatinine 0.64, glucose 181, albumin 3.2 UA negative for infection CT head negative for any acute intracranial process CT cervical spine negative for any fractures Patient admitted to medicine service 05/11. Patient seen and examined. States she feels much better. Still having drainage from the left groin wound. Vital signs stable REVIEW OF SYSTEMS: CONSTITUTIONAL: No fever, no malaise,. CARDIOVASCULAR: No chest pain, no palpitations, no syncope. PULMONARY: No shortness of breath, no cough, GASTROINTESTINAL: No diarrhea, no nausea, no vomiting, no abdominal pain. NEUROLOGICAL: No headaches, no weakness, PHYSICAL EXAMINATION: GENERAL: The patient is alert and oriented x3, not in any acute distress. Well developed, well nourished. HEENT: Pupils are round and equally reacting to light. EOMI. No scleral icterus. No conjunctival pallor. Normocephalic, atraumatic. No pharyngeal erythema. No thyromegaly. CARDIOVASCULAR: S1 and S2 present. No murmurs, rubs, or gallops. PULMONARY: Chest is clear to auscultation, no wheezing or crackles. ABDOMEN: Soft, nontender, nondistended, normoactive bowel sounds. No palpable organomegaly. MUSCULOSKELETAL: No joint swelling or deformity. EXTREMITIES: No cyanosis, clubbing, or pedal edema. NEUROLOGICAL: Gross neurological examination did not reveal any focal deficits. SKIN: Groin wound seen, drainage noticeable Assessment and plan Left groin cellulitis and abscess Fall Malignant melanoma Diabetes mellitus Hypertension Hyperlipidemia History of osteoarthritis Hypothyroidism Monitor vital signs Monitor CBC Monitor CMP Continue telemetry monitoring Encourage use of incentive spirometer Follow-up on wound cultures Continue wound care Continue IV cefazolin ID following Hematology oncology following Regards to hyperlipidemia continue Lipitor In regards to hypothyroid continue Synthyroid Labs and medication were reviewed.. Continue same treatment. Continue with symptomatic treatment. Resume home medication. Monitor labs and vitals. DVT and GI prophylaxis. Further recommendations as per clinical course of the patient Dictation was produced using [employer] dictation software. please excuse any grammatical, word or spelling errors. Objective - Vital Signs Vital signs: Vital Signs Temp 96.9 F L 05/11/23 06:58 Pulse 69 05/11/23 06:58 Resp 16 05/11/23 06:58 BP 144/73 05/11/23 06:58 Pulse Ox 98 05/11/23 06:58 FiO2 Intake & Output 05/10/23 05/11/23 05/11/23 18:59 06:59 18:59 Intake Total 1120 850 240 Output Total 750 1650 Balance 370 -800 240 Intake: Intake, IV Titration 1000 850 Amount Ampicillin-Sulbactam 3 gm 100 In Sodium Chloride 0.9% 100 ml @ 200 mls/hr IVPB Q6HR [facility] Rx#:[id number] Sodium Chloride 0.9% 1, 900 750 000 ml @ 75 mls/hr IV . [id number] [facility] Rx#:[id number] ceFAZolin 1,000 mg In 100 Sodium Chloride 0.9% 50 ml @ 100 mls/hr IVPB Q8HR [facility] Rx#:[id number] Oral 120 240 Output: Urine 750 1650 Other: Voiding Method Incontinent Diaper Diaper External Catheter Incontinent Incontinent - Labs CBC & Chem 7: 05/10/23 01:20 05/10/23 01:20 Labs: Abnormal Lab Results - Last 24 Hours (Table) 05/10/23 05/10/23 05/10/23 Range/Units 01:20 17:13 21:01 POC Glucose (mg/dL) 167 H 151 H (70-110) mg/dL Hemoglobin A1c 7.1 H (<=6.0) % 05/11/23 05/11/23 Range/Units 06:53 11:43 POC Glucose (mg/dL) 191 H 138 H (70-110) mg/dL Hemoglobin A1c (<=6.0) % Microbiology - Last 24 Hours (Table) 05/10/23 03:30 Blood Culture - Preliminary Blood 05/10/23 03:45 Blood Culture - Preliminary Blood 05/10/23 11:35 Gram Stain - Preliminary Groin Wound Culture - Preliminary
--- NOTE | 2023-05-11 16:17 | P.PN ---
Subjective Progress Note Date: 05/11/23 Principal diagnosis: left hip wound, melanoma At today's visit patient is resting comfortably in bed. She is reporting discomfort in the left lateral hip area. Wound culture pending, continues on IV antibiotics. Wound Care and infectious disease following Objective - Vital Signs Vital signs: Vital Signs Temp 98.5 F 05/11/23 13:35 Pulse 71 05/11/23 13:35 Resp 16 05/11/23 13:35 BP 114/66 05/11/23 13:35 Pulse Ox 93 L 05/11/23 13:35 FiO2 Intake & Output 05/10/23 05/11/23 05/11/23 18:59 06:59 18:59 Intake Total 1120 850 240 Output Total 750 1650 Balance 370 -800 240 Intake: Intake, IV Titration 1000 850 Amount Ampicillin-Sulbactam 3 gm 100 In Sodium Chloride 0.9% 100 ml @ 200 mls/hr IVPB Q6HR [facility] Rx#:[id number] Sodium Chloride 0.9% 1, 900 750 000 ml @ 75 mls/hr IV . [id number] [facility] Rx#:[id number] ceFAZolin 1,000 mg In 100 Sodium Chloride 0.9% 50 ml @ 100 mls/hr IVPB Q8HR [facility] Rx#:[id number] Oral 120 240 Output: Urine 750 1650 Other: Voiding Method Incontinent Diaper Diaper External Catheter Incontinent Incontinent # Bowel Movements 1 - Constitutional General appearance: Present: average body habitus, no acute distress - EENT Eyes: Present: anicteric sclerae, EOMI ENT: Present: hearing grossly normal - Respiratory Details: breathing is even and unlabored - Cardiovascular Details: skin warm and dry - Integumentary Integumentary Comment(s): left lateral hip wound, with erythema, warmth and induration noted - Musculoskeletal Musculoskeletal: Present: generalized weakness - Psychiatric Psychiatric: Present: A&O x's 3, appropriate affect, intact judgment & insight - Labs CBC & Chem 7: 05/10/23 01:20 05/10/23 01:20 Labs: Abnormal Lab Results - Last 24 Hours (Table) 05/10/23 05/10/23 05/10/23 Range/Units 01:20 17:13 21:01 POC Glucose (mg/dL) 167 H 151 H (70-110) mg/dL Hemoglobin A1c 7.1 H (<=6.0) % 05/11/23 05/11/23 Range/Units 06:53 11:43 POC Glucose (mg/dL) 191 H 138 H (70-110) mg/dL Hemoglobin A1c (<=6.0) % Microbiology - Last 24 Hours (Table) 05/10/23 03:30 Blood Culture - Preliminary Blood 05/10/23 03:45 Blood Culture - Preliminary Blood 05/10/23 11:35 Gram Stain - Preliminary Groin Wound Culture - Preliminary Assessment and Plan (1) Melanoma Current Visit: Yes Status: Acute Priority: High Code(s): C43.9 - MALIGNANT MELANOMA OF SKIN, UNSPECIFIED SNOMED Code(s): 968058733 (2) Cellulitis Current Visit: Yes Status: Acute Priority: High Code(s): L03.90 - CELLULITIS, UNSPECIFIED SNOMED Code(s): 687835325 Plan: Melanoma: -Full history in HPI -Completed 10 fractions of RT on 05/01/23 -Patient was recommended to start single agent nivolumab given prior treatment response and overall tolerance. Pt is awaiting prior authorization and has not started treatment yet. -Plan is for patient to go to rehab upon discharge. Treatment will be on hold until pt completes rehab -Clinic follow-up will be scheduled upon discharge to ensure pt has adequately recovered prior to starting treatment Pt updated on POC and is agreeable Cellulitis/Hip wound: -Increasing discharge/swelling to left hip wound -Blood culturees negative thus far. Wound culture pending. Pt afebrile. Continues on IV abx, ID following. Wound may be caused by known melanoma of site, but agree with empiric abx and workup. Will await pending cultures. If positive treatment may need to be delayed to allow adequate healing, will continue to follow -Wound care following. Case management consulted for evaluation for at home wound care nurse
[2023-05-11 16:54] LABS: Glucose,Whole Blood 231 mg/dL (70-110)
[2023-05-11 20:26] LABS: Glucose,Whole Blood 181 mg/dL (70-110)
[2023-05-11] MEDS: ATORVASTATIN 20 MG TAB PO SCH (21:15)
--- NOTE | 2023-05-11 22:21 | P.PN ---
Subjective Progress Note Date: 05/11/23 Principal diagnosis: Left groin infected wound Patient is a 87-year-old female with a past medical history Nupercaine for osteoarthritis diabetes mellitus did have history of metastatic melanoma in this patient presented to hospital after the patient have a fall from standing at home patient mention she felt very weak, patient did have a nonhealing wound to the left groin area with some cellulitis concerning for wound infection. On today's evaluation that is 05/11/2023, the patient denies having any fever or any chills patient is breathing comfortably on room air no chest pain shortness of breath or cough no abdominal pain or any worsening pain to the left groin wound area. No labs were done today cultures are currently pending. Objective - Vital Signs Vital signs: Vital Signs Temp 96.9 F L 05/11/23 06:58 Pulse 69 05/11/23 06:58 Resp 16 05/11/23 06:58 BP 144/73 05/11/23 06:58 Pulse Ox 98 05/11/23 06:58 FiO2 Intake & Output 05/10/23 05/11/23 05/11/23 18:59 06:59 18:59 Intake Total 1120 850 120 Output Total 750 1650 Balance 370 -800 120 Intake: Intake, IV Titration 1000 850 Amount Ampicillin-Sulbactam 3 gm 100 In Sodium Chloride 0.9% 100 ml @ 200 mls/hr IVPB Q6HR [facility] Rx#:[id number] Sodium Chloride 0.9% 1, 900 750 000 ml @ 75 mls/hr IV . [id number] [facility] Rx#:[id number] ceFAZolin 1,000 mg In 100 Sodium Chloride 0.9% 50 ml @ 100 mls/hr IVPB Q8HR [facility] Rx#:[id number] Oral 120 120 Output: Urine 750 1650 Other: Voiding Method Incontinent Diaper Diaper External Catheter Incontinent Incontinent - Exam GENERAL DESCRIPTION: Elderly female lying in bed in no distress RESPIRATORY SYSTEM: Unlabored breathing , coarse breath sounds bilaterally HEART: S1 S2 regular rate and rhythm ,no loud murmurs ABDOMEN: Soft , no tenderness, left groin wound is currently dressed EXTREMITIES: No edema feet - Labs CBC & Chem 7: 05/10/23 01:20 05/10/23 01:20 Labs: Abnormal Lab Results - Last 24 Hours (Table) 05/10/23 05/10/23 05/10/23 Range/Units 01:20 12:28 17:13 POC Glucose (mg/dL) 155 H 167 H (70-110) mg/dL Hemoglobin A1c 7.1 H (<=6.0) % 05/10/23 05/11/23 05/11/23 Range/Units 21:01 06:53 11:43 POC Glucose (mg/dL) 151 H 191 H 138 H (70-110) mg/dL Hemoglobin A1c (<=6.0) % Microbiology - Last 24 Hours (Table) 05/10/23 11:35 Gram Stain - Preliminary Groin Wound Culture - Preliminary Assessment and Plan (1) Cellulitis Current Visit: Yes Status: Acute Priority: High Code(s): L03.90 - CELLULITIS, UNSPECIFIED SNOMED Code(s): 166468173 (2) 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 Current Visit: Yes Status: Acute Code(s): L97.125 - NON-PRS CHR ULC OF LEFT THIGH WITH MSL INVL W/O EVD OF NECR SNOMED Code(s): 28834225289594034 Plan: 1patient with a nonhealing wound to the left groin area and this patient did have 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 please excuse any grammatical, word or spelling errors.
[2023-05-12] MEDS: CARBIDOPA-LEVODOPA ER 50-200MG 1 EACH TABLET.ER PO SCH ×3 (03:07→17:47)
[2023-05-12] MEDS: AMPICILLIN-SULBACTAM 3 GM in SODIUM CHLORIDE 0.9% 100 ML IVPB SCH ×3 (05:47→17:48)
[2023-05-12] MEDS: LEVOTHYROXINE 100 MCG TAB PO SCH (05:48)
[2023-05-12 06:49] LABS: Glucose,Whole Blood 168 mg/dL (70-110)
[2023-05-12 06:59] LABS: HCT 29.7 % (34.0-46.0); HGB 9.4 gm/dL (11.4-16.0); Hypochromasia Slight; MCH 29.2 pg (25.0-35.0); MCHC 31.8 g/dL (31.0-37.0); Mean Platelet Volume 6.8; Platelet Count 532 k/uL (150-450); RBC 3.23 m/uL (3.80-5.40); RDW 13.5 % (11.5-15.5); WBC 6.4 k/uL (3.8-10.6)
[2023-05-12 07:12] LABS: ALT <6 U/L (4-34); AST 12 U/L (14-36); African American GFR (CKD) >90 (>60 ml/min/1.73 sqM); Albumin 2.6 g/dL (3.5-5.0); Albumin/Globulin Ratio 0.9; Alkaline Phosphatase 63 U/L (38-126); Anion Gap 7 mmol/L; Blood Urea Nitrogen 11 mg/dL (7-17); Calcium 8.4 mg/dL (8.4-10.2); Carbon Dioxide 25 mmol/L (22-30); Chloride 104 mmol/L (98-107); Globulin 2.8 g/dL; Glucose 160 mg/dL (74-99); Non-African American GFR(CKD) 86 (>60 ml/min/1.73 sqM); Potassium 4.1 mmol/L (3.5-5.1); Sodium 136 mmol/L (137-145); Total Bilirubin 0.3 mg/dL (0.2-1.3); Total Protein 5.4 g/dL (6.3-8.2)
[2023-05-12] MEDS: INSULIN ASPART (NovoLOG) 100 UNIT/ML VIAL SQ SCH ×4 (08:16→20:59)
[2023-05-12] MEDS: CITALOPRAM HYDROBROMIDE 20 MG TAB PO SCH (08:16)
[2023-05-12] MEDS: GABAPENTIN 100 MG CAP PO SCH ×2 (08:16→16:20)
[2023-05-12] MEDS: FERROUS SULFATE 325 MG TAB PO SCH (08:17)
[2023-05-12] MEDS: ASPIRIN 81 MG PO SCH (08:17)
[2023-05-12] MEDS: PANTOPRAZOLE 40 MG TABLET PO SCH (08:17)
[2023-05-12 11:55] LABS: Glucose,Whole Blood 170 mg/dL (70-110)
--- NOTE | 2023-05-12 12:28 | P.PN ---
Subjective Progress Note Date: 05/12/23 patient is 87-year-old lady with past medical significant for melanoma, hypothyroidism, hyperlipidemia presented to the ER after having a fall. Patient stated that she was all right when while at home she fell from a standing position. Patient stated that she only became weak and lost her balance, she didn't lose her consciousness. There was no complain of any jerking movement of her extremity, no seizure-like activity, no fecal or urinary incontinence. Patient currently on antibiotics for her cellulitis of her abdominal wall. Patient stated that she has been having a lot of discharge from her abdominal wall which is very foul-smelling. Denies any fever or chills. No complaints of nausea, and abdominal pain. Because of this fall, patient was brought to the ER Initial lab work done in the ER showed WBC 8.1, hemoglobin 9.7, platelet count 566, sodium 135, potassium 4, BUN 18, creatinine 0.64, glucose 181, albumin 3.2 UA negative for infection CT head negative for any acute intracranial process CT cervical spine negative for any fractures Patient admitted to medicine service 05/11. Patient seen and examined. States she feels much better. Still having drainage from the left groin wound. Vital signs stable 05/12. Patient seen and examined. Sitting upright in the chair. States she feels the same as yesterday. Still having drainage from the groin site REVIEW OF SYSTEMS: CONSTITUTIONAL: No fever, no malaise,. CARDIOVASCULAR: No chest pain, no palpitations, no syncope. PULMONARY: No shortness of breath, no cough, GASTROINTESTINAL: No diarrhea, no nausea, no vomiting, no abdominal pain. NEUROLOGICAL: No headaches, no weakness, PHYSICAL EXAMINATION: GENERAL: The patient is alert and oriented x3, not in any acute distress. Well developed, well nourished. HEENT: Pupils are round and equally reacting to light. EOMI. No scleral icterus. No conjunctival pallor. Normocephalic, atraumatic. No pharyngeal erythema. No thyromegaly. CARDIOVASCULAR: S1 and S2 present. No murmurs, rubs, or gallops. PULMONARY: Chest is clear to auscultation, no wheezing or crackles. ABDOMEN: Soft, nontender, nondistended, normoactive bowel sounds. No palpable organomegaly. MUSCULOSKELETAL: No joint swelling or deformity. EXTREMITIES: No cyanosis, clubbing, or pedal edema. NEUROLOGICAL: Gross neurological examination did not reveal any focal deficits. SKIN: Left groin ulcer seen, drainage noticeable Assessment and plan Left groin cellulitis and abscess Left groin nonhealing ulcer Fall Malignant melanoma Diabetes mellitus Hypertension Hyperlipidemia History of osteoarthritis Hypothyroidism Monitor vital signs Monitor CBC Monitor CMP Continue telemetry monitoring Encourage use of incentive spirometer Follow-up on wound cultures Continue wound care Continue IV Unasyn ID following Hematology oncology following Regards to hyperlipidemia continue Lipitor In regards to hypothyroid continue Synthyroid PT and OT following Labs and medication were reviewed.. Continue same treatment. Continue with symptomatic treatment. Resume home medication. Monitor labs and vitals. DVT and GI prophylaxis. Further recommendations as per clinical course of the patient Dictation was produced using [employer] dictation software. please excuse any grammatical, word or spelling errors. Objective - Vital Signs Vital signs: Vital Signs Temp 98 F 05/12/23 07:16 Pulse 62 05/12/23 07:16 Resp 17 05/12/23 07:16 BP 120/67 05/12/23 07:16 Pulse Ox 95 05/12/23 07:16 FiO2 Intake & Output 05/11/23 05/12/23 05/12/23 18:59 06:59 18:59 Intake Total 1060 120 Output Total 1100 400 Balance -40 -400 120 Intake: Intake, IV Titration 700 Amount Ampicillin-Sulbactam 3 gm 100 In Sodium Chloride 0.9% 100 ml @ 200 mls/hr IVPB Q8H [facility] Rx#:[id number] Sodium Chloride 0.9% 1, 600 000 ml @ 75 mls/hr IV . [id number] [facility] Rx#:[id number] Oral 360 120 Output: Urine 1100 400 Other: Voiding Method Diaper Diaper Diaper Incontinent Incontinent Incontinent External Catheter External Catheter # Bowel Movements 1 - Labs CBC & Chem 7: 05/12/23 06:21 05/12/23 06:21 Labs: Abnormal Lab Results - Last 24 Hours (Table) 05/11/23 05/11/23 05/12/23 Range/Units 16:52 20:23 06:21 RBC 3.23 L (3.80-5.40) m/uL Hgb 9.4 L (11.4-16.0) gm/dL Hct 29.7 L (34.0-46.0) % Plt Count 532 H (150-450) k/uL Sodium (137-145) mmol/L Glucose (74-99) mg/dL POC Glucose (mg/dL) 231 H 181 H (70-110) mg/dL AST (14-36) U/L Total Protein (6.3-8.2) g/dL Albumin (3.5-5.0) g/dL 05/12/23 05/12/23 05/12/23 Range/Units 06:21 06:48 11:53 RBC (3.80-5.40) m/uL Hgb (11.4-16.0) gm/dL Hct (34.0-46.0) % Plt Count (150-450) k/uL Sodium 136 L (137-145) mmol/L Glucose 160 H (74-99) mg/dL POC Glucose (mg/dL) 168 H 170 H (70-110) mg/dL AST 12 L (14-36) U/L Total Protein 5.4 L (6.3-8.2) g/dL Albumin 2.6 L (3.5-5.0) g/dL Microbiology - Last 24 Hours (Table) 05/10/23 11:35 Gram Stain - Final Groin Wound Culture - Final 05/10/23 03:30 Blood Culture - Preliminary Blood 05/10/23 03:45 Blood Culture - Preliminary Blood
[2023-05-12] MEDS: CHOLECALCIFEROL 25 MCG (1000 IU) TABLET PO SCH (12:42)
[2023-05-12 17:14] LABS: Glucose,Whole Blood 186 mg/dL (70-110)
[2023-05-12 19:47] LABS: Glucose,Whole Blood 192 mg/dL (70-110)
[2023-05-12] MEDS: ATORVASTATIN 20 MG TAB PO SCH (20:59)
[2023-05-13] MEDS: AMPICILLIN-SULBACTAM 3 GM in SODIUM CHLORIDE 0.9% 100 ML IVPB SCH ×5 (00:01→23:24)
[2023-05-13] MEDS: GABAPENTIN 100 MG CAP PO SCH ×4 (00:01→23:24)
--- NOTE | 2023-05-13 00:08 | P.PN ---
Subjective Progress Note Date: 05/12/23 Principal diagnosis: Left groin infected wound Patient is a 87-year-old female with a past medical history Nupercaine for osteoarthritis diabetes mellitus did have history of metastatic melanoma in this patient presented to hospital after the patient have a fall from standing at home patient mention she felt very weak, patient did have a nonhealing wound to the left groin area with some cellulitis concerning for wound infection. On today's evaluation that is 05/12/2023, the patient is afebrile , patient is breathing comfortably on room air , denies any chest pain shortness of breath or cough no abdominal pain or any worsening pain to the left groin wound area. WBC 6.4, Cr is 0.54 cultures are currently pending. Objective - Vital Signs Vital signs: Vital Signs Temp 99.3 F 05/12/23 19:37 Pulse 72 05/12/23 19:37 Resp 16 05/12/23 19:37 BP 125/69 05/12/23 19:37 Pulse Ox 98 05/12/23 19:37 FiO2 Intake & Output 05/12/23 05/12/23 05/13/23 06:59 18:59 05:59 Intake Total 360 Output Total 400 900 600 Balance -400 -540 -600 Intake: Oral 360 Output: Urine 400 900 600 Other: Voiding Method Diaper Diaper Incontinent Incontinent External Catheter External Catheter - Exam GENERAL DESCRIPTION: Elderly female lying in bed in no distress RESPIRATORY SYSTEM: Unlabored breathing , coarse breath sounds bilaterally HEART: S1 S2 regular rate and rhythm ,no loud murmurs ABDOMEN: Soft , no tenderness, left groin wound is currently dressed EXTREMITIES: No edema feet - Labs CBC & Chem 7: 05/12/23 06:21 05/12/23 06:21 Labs: Abnormal Lab Results - Last 24 Hours (Table) 05/12/23 05/12/23 05/12/23 Range/Units 06:21 06:21 06:48 RBC 3.23 L (3.80-5.40) m/uL Hgb 9.4 L (11.4-16.0) gm/dL Hct 29.7 L (34.0-46.0) % Plt Count 532 H (150-450) k/uL Sodium 136 L (137-145) mmol/L Glucose 160 H (74-99) mg/dL POC Glucose (mg/dL) 168 H (70-110) mg/dL AST 12 L (14-36) U/L Total Protein 5.4 L (6.3-8.2) g/dL Albumin 2.6 L (3.5-5.0) g/dL 05/12/23 05/12/23 05/12/23 Range/Units 11:53 17:13 19:42 RBC (3.80-5.40) m/uL Hgb (11.4-16.0) gm/dL Hct (34.0-46.0) % Plt Count (150-450) k/uL Sodium (137-145) mmol/L Glucose (74-99) mg/dL POC Glucose (mg/dL) 170 H 186 H 192 H (70-110) mg/dL AST (14-36) U/L Total Protein (6.3-8.2) g/dL Albumin (3.5-5.0) g/dL Microbiology - Last 24 Hours (Table) 05/10/23 03:30 Blood Culture - Preliminary Blood 05/10/23 03:45 Blood Culture - Preliminary Blood 05/10/23 11:35 Gram Stain - Final Groin Wound Culture - Final Assessment and Plan (1) Cellulitis Current Visit: Yes Status: Acute Priority: High Code(s): L03.90 - CELLULITIS, UNSPECIFIED SNOMED Code(s): 277177811 (2) 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 Current Visit: Yes Status: Acute Code(s): L97.125 - NON-PRS CHR ULC OF LEFT THIGH WITH MSL INVL W/O EVD OF NECR SNOMED Code(s): 22622841561164602 Plan: 1patient with a nonhealing wound to the left groin area and this patient did have 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 please excuse any grammatical, word or spelling errors. Time with Patient: Less than 30
[2023-05-13] MEDS: CARBIDOPA-LEVODOPA ER 50-200MG 1 EACH TABLET.ER PO SCH ×3 (02:32→17:34)
[2023-05-13] MEDS: LEVOTHYROXINE 100 MCG TAB PO SCH (06:30)
[2023-05-13 07:02] LABS: Glucose,Whole Blood 205 mg/dL (70-110)
[2023-05-13] MEDS: FERROUS SULFATE 325 MG TAB PO SCH (08:21)
[2023-05-13] MEDS: PANTOPRAZOLE 40 MG TABLET PO SCH (08:21)
[2023-05-13] MEDS: ASPIRIN 81 MG PO SCH (08:21)
[2023-05-13] MEDS: CITALOPRAM HYDROBROMIDE 20 MG TAB PO SCH (08:21)
[2023-05-13] MEDS: INSULIN ASPART (NovoLOG) 100 UNIT/ML VIAL SQ SCH ×4 (08:21→20:27)
[2023-05-13] MEDS: CHOLECALCIFEROL 25 MCG (1000 IU) TABLET PO SCH (12:02)
[2023-05-13 12:13] LABS: Glucose,Whole Blood 183 mg/dL (70-110)
--- NOTE | 2023-05-13 12:23 | P.PN ---
Subjective Progress Note Date: 05/13/23 patient is 87-year-old lady with past medical significant for melanoma, hypothyroidism, hyperlipidemia presented to the ER after having a fall. Patient stated that she was all right when while at home she fell from a standing position. Patient stated that she only became weak and lost her balance, she didn't lose her consciousness. There was no complain of any jerking movement of her extremity, no seizure-like activity, no fecal or urinary incontinence. Patient currently on antibiotics for her cellulitis of her abdominal wall. Patient stated that she has been having a lot of discharge from her abdominal wall which is very foul-smelling. Denies any fever or chills. No complaints of nausea, and abdominal pain. Because of this fall, patient was brought to the ER Initial lab work done in the ER showed WBC 8.1, hemoglobin 9.7, platelet count 566, sodium 135, potassium 4, BUN 18, creatinine 0.64, glucose 181, albumin 3.2 UA negative for infection CT head negative for any acute intracranial process CT cervical spine negative for any fractures Patient admitted to medicine service 05/11. Patient seen and examined. States she feels much better. Still having drainage from the left groin wound. Vital signs stable 05/12. Patient seen and examined. Sitting upright in the chair. States she feels the same as yesterday. Still having drainage from the groin site 05/13. Patient seen and examined. No acute issues overnight. Vital signs stable REVIEW OF SYSTEMS: CONSTITUTIONAL: No fever, no malaise,. CARDIOVASCULAR: No chest pain, no palpitations, no syncope. PULMONARY: No shortness of breath, no cough, GASTROINTESTINAL: No diarrhea, no nausea, no vomiting, no abdominal pain. NEUROLOGICAL: No headaches, no weakness, PHYSICAL EXAMINATION: GENERAL: The patient is alert and oriented x3, not in any acute distress. Well developed, well nourished. HEENT: Pupils are round and equally reacting to light. EOMI. No scleral icterus. No conjunctival pallor. Normocephalic, atraumatic. No pharyngeal erythema. No thyromegaly. CARDIOVASCULAR: S1 and S2 present. No murmurs, rubs, or gallops. PULMONARY: Chest is clear to auscultation, no wheezing or crackles. ABDOMEN: Soft, nontender, nondistended, normoactive bowel sounds. No palpable organomegaly. MUSCULOSKELETAL: No joint swelling or deformity. EXTREMITIES: No cyanosis, clubbing, or pedal edema. NEUROLOGICAL: Gross neurological examination did not reveal any focal deficits. SKIN: Left groin ulcer seen, drainage noticeable Assessment and plan Left groin cellulitis and abscess Left groin nonhealing ulcer Fall Malignant melanoma Diabetes mellitus Hypertension Hyperlipidemia History of osteoarthritis Hypothyroidism Monitor vital signs Monitor CBC Monitor CMP Encourage use of incentive spirometer Follow-up on wound cultures Continue wound care Continue IV Unasyn ID following Hematology oncology following Regards to hyperlipidemia continue Lipitor In regards to hypothyroid continue Synthyroid PT and OT following Labs and medication were reviewed.. Continue same treatment. Continue with symptomatic treatment. Resume home medication. Monitor labs and vitals. DVT and GI prophylaxis. Further recommendations as per clinical course of the patie nt Dictation was produced using [employer] dictation software. please excuse any grammatical, word or spelling errors. Objective - Vital Signs Vital signs: Vital Signs Temp 98.3 F 05/13/23 07:03 Pulse 64 05/13/23 07:03 Resp 16 05/13/23 07:03 BP 113/64 05/13/23 07:03 Pulse Ox 96 05/13/23 07:03 FiO2 Intake & Output 05/12/23 05/13/23 05/13/23 19:59 06:59 18:59 Intake Total Output Total Balance Intake: Oral Output: Urine Other: Voiding Method Bedside Commode Diaper Incontinent External Catheter - Labs CBC & Chem 7: 05/12/23 06:21 05/12/23 06:21 Labs: Abnormal Lab Results - Last 24 Hours (Table) 05/12/23 05/12/23 05/13/23 Range/Units 17:13 19:42 07:01 POC Glucose (mg/dL) 186 H 192 H 205 H (70-110) mg/dL 05/13/23 Range/Units 12:12 POC Glucose (mg/dL) 183 H (70-110) mg/dL Microbiology - Last 24 Hours (Table) 05/10/23 03:30 Blood Culture - Preliminary Blood 05/10/23 03:45 Blood Culture - Preliminary Blood 05/10/23 11:35 Gram Stain - Final Groin Wound Culture - Final
--- NOTE | 2023-05-13 14:30 | P.PN ---
Subjective Progress Note Date: 05/13/23 Principal diagnosis: Left groin infected wound Patient is a 87-year-old female with a past medical history Nupercaine for osteoarthritis diabetes mellitus did have history of metastatic melanoma in this patient presented to hospital after the patient have a fall from standing at home patient mention she felt very weak, patient did have a nonhealing wound to the left groin area with some cellulitis concerning for wound infection. On today's evaluation that is 05/13/2023, the patient denies any fever or any chills, the patient is breathing comfortably on room air and no need for supplemental oxygen, the patient denies any chest pain and no cough or sputum production, patient denies Abdominal pain and no nausea/vomiting or diarrhea , the patient denies any worsening pain to the left groin wound area. WBC 6.4, Cr is 0.54 as of 05/12/2020 cultures are currently growing anaerobes Objective - Vital Signs Vital signs: Vital Signs Temp 98.1 F 05/13/23 12:44 Pulse 64 05/13/23 12:44 Resp 18 05/13/23 12:44 BP 110/65 05/13/23 12:44 Pulse Ox 99 05/13/23 12:44 FiO2 Intake & Output 05/12/23 05/13/23 05/13/23 19:59 06:59 18:59 Intake Total Output Total Balance Intake: Oral Output: Urine Other: Voiding Method Bedside Commode Diaper Incontinent External Catheter - Exam GENERAL DESCRIPTION: Elderly female lying in bed in no distress RESPIRATORY SYSTEM: Unlabored breathing , coarse breath sounds bilaterally HEART: S1 S2 regular rate and rhythm ,no loud murmurs ABDOMEN: Soft , no tenderness, left groin wound is currently dressed EXTREMITIES: No edema feet - Labs CBC & Chem 7: 05/12/23 06:21 05/12/23 06:21 Labs: Abnormal Lab Results - Last 24 Hours (Table) 05/12/23 05/12/23 05/13/23 Range/Units 17:13 19:42 07:01 POC Glucose (mg/dL) 186 H 192 H 205 H (70-110) mg/dL 05/13/23 Range/Units 12:12 POC Glucose (mg/dL) 183 H (70-110) mg/dL Microbiology - Last 24 Hours (Table) 05/10/23 11:35 Anaerobic Culture - Final Groin Anaerobic Gm Negative Bacilli Anaerobic Gm Negative Bacilli#2 05/10/23 03:30 Blood Culture - Preliminary Blood 05/10/23 03:45 Blood Culture - Preliminary Blood Assessment and Plan (1) Cellulitis Current Visit: Yes Status: Acute Priority: High Code(s): L03.90 - CELLULITIS, UNSPECIFIED SNOMED Code(s): 578725713 (2) 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 Current Visit: Yes Status: Acute Code(s): L97.125 - NON-PRS CHR ULC OF LEFT THIGH WITH MSL INVL W/O EVD OF NECR SNOMED Code(s): 55443529561632679 Plan: 1patient with a nonhealing wound to the left groin area and this patient did have history of recurrent melanoma to the left groin, with a necrotic wound with some slough tissue at the base and surrounding erythema and foul-smelling drainage secondary infection not entirely excluded 2-aerobic and anaerobic culture has been obtained and currently growing mostly anaerobes 3patient did have some clinical improvment to continue with the Unasyn and plan to finish therapy with oral Augmentin Dictation was produced using [employer] dictation software. please excuse any grammatical, word or spelling errors.
[2023-05-13 17:10] LABS: Glucose,Whole Blood 251 mg/dL (70-110)
[2023-05-13 20:16] LABS: Glucose,Whole Blood 145 mg/dL (70-110)
[2023-05-13] MEDS: ATORVASTATIN 20 MG TAB PO SCH (20:29)
[2023-05-14] MEDS: CARBIDOPA-LEVODOPA ER 50-200MG 1 EACH TABLET.ER PO SCH ×3 (01:37→17:38)
[2023-05-14] MEDS: AMPICILLIN-SULBACTAM 3 GM in SODIUM CHLORIDE 0.9% 100 ML IVPB SCH ×3 (05:31→20:47)
[2023-05-14] MEDS: LEVOTHYROXINE 100 MCG TAB PO SCH (05:31)
[2023-05-14 07:07] LABS: Glucose,Whole Blood 162 mg/dL (70-110)
[2023-05-14] MEDS: PANTOPRAZOLE 40 MG TABLET PO SCH (08:12)
[2023-05-14] MEDS: FERROUS SULFATE 325 MG TAB PO SCH (08:12)
[2023-05-14] MEDS: INSULIN ASPART (NovoLOG) 100 UNIT/ML VIAL SQ SCH ×4 (08:12→20:46)
[2023-05-14] MEDS: GABAPENTIN 100 MG CAP PO SCH ×2 (08:12→16:04)
[2023-05-14] MEDS: ASPIRIN 81 MG PO SCH (08:12)
[2023-05-14] MEDS: CITALOPRAM HYDROBROMIDE 20 MG TAB PO SCH (08:12)
--- NOTE | 2023-05-14 11:52 | P.PN ---
Subjective Progress Note Date: 05/14/23 patient is 87-year-old lady with past medical significant for melanoma, hypothyroidism, hyperlipidemia presented to the ER after having a fall. Patient stated that she was all right when while at home she fell from a standing position. Patient stated that she only became weak and lost her balance, she didn't lose her consciousness. There was no complain of any jerking movement of her extremity, no seizure-like activity, no fecal or urinary incontinence. Patient currently on antibiotics for her cellulitis of her abdominal wall. Patient stated that she has been having a lot of discharge from her abdominal wall which is very foul-smelling. Denies any fever or chills. No complaints of nausea, and abdominal pain. Because of this fall, patient was brought to the ER Initial lab work done in the ER showed WBC 8.1, hemoglobin 9.7, platelet count 566, sodium 135, potassium 4, BUN 18, creatinine 0.64, glucose 181, albumin 3.2 [address]A negative for infection CT head negative for any acute intracranial process CT cervical spine negative for any fractures Patient admitted to medicine service 05/11. Patient seen and examined. States she feels much better. Still having drainage from the left groin wound. Vital signs stable 05/12. Patient seen and examined. Sitting upright in the chair. States she feels the same as yesterday. Still having drainage from the groin site 05/13. Patient seen and examined. No acute issues overnight. Vital signs stable 05/14. Patient seen and examined. Currently waiting on rehab placement. Denies any fever or chills . Denies lightheadedness or dizziness REVIEW OF SYSTEMS: CONSTITUTIONAL: No fever, no malaise,. CARDIOVASCULAR: No chest pain, no palpitations, no syncope. PULMONARY: No shortness of breath, no cough, GASTROINTESTINAL: No diarrhea, no nausea, no vomiting, no abdominal pain. NEUROLOGICAL: No headaches, no weakness, PHYSICAL EXAMINATION: GENERAL: The patient is alert and oriented x3, not in any acute distress. Well developed, well nourished. HEENT: Pupils are round and equally reacting to light. EOMI. No scleral icterus. No conjunctival pallor. Normocephalic, atraumatic. No pharyngeal erythema. No thyromegaly. CARDIOVASCULAR: S1 and S2 present. No murmurs, rubs, or gallops. PULMONARY: Chest is clear to auscultation, no wheezing or crackles. ABDOMEN: Soft, nontender, nondistended, normoactive bowel sounds. No palpable organomegaly. MUSCULOSKELETAL: No joint swelling or deformity. EXTREMITIES: No cyanosis, clubbing, or pedal edema. NEUROLOGICAL: Gross neurological examination did not reveal any focal deficits. SKIN: Left groin ulcer seen, drainage noticeable Assessment and plan Left groin cellulitis and abscess Left groin nonhealing ulcer Fall Malignant melanoma Diabetes mellitus Hypertension Hyperlipidemia History of osteoarthritis Hypothyroidism Monitor vital signs Monitor CBC Monitor CMP Encourage use of incentive spirometer Follow-up on wound cultures Continue wound care Continue IV Unasyn, can be transitioned to oral Augmentin for 10 days at discharge ID following Hematology oncology following Regards to hyperlipidemia continue Lipitor In regards to hypothyroid continue Synthyroid PT and OT recommended rehab Labs and medication were reviewed.. Continue same treatment. Continue with symptomatic treatment. Resume home medication. Monitor labs and vitals. DVT and GI prophylaxis. Further recommendations as per clinical course of the patient Dictation was produced using [employer] dictation software. please excuse any grammatical, word or spelling errors. Objective - Vital Signs Vital signs: Vital Signs Temp 98.5 F 05/14/23 07:06 Pulse 64 05/14/23 07:06 Resp 16 05/14/23 07:06 BP 122/65 05/14/23 07:06 Pulse Ox 95 05/14/23 07:06 FiO2 Intake & Output 05/13/23 05/14/23 05/14/23 18:59 06:59 18:59 Intake Total 590 Output Total 600 500 Balance -600 90 Intake: Oral 590 Output: Urine 600 500 Other: Voiding Method Bedside Commode Bedside Commode Bedside Commode Diaper Diaper Diaper Incontinent Incontinent Incontinent External Catheter External Catheter External Catheter - Labs CBC & Chem 7: 05/12/23 06:21 05/12/23 06:21 Labs: Abnormal Lab Results - Last 24 Hours (Table) 05/13/23 05/13/23 05/13/23 Range/Units 12:12 17:09 20:13 POC Glucose (mg/dL) 183 H 251 H 145 H (70-110) mg/dL 05/14/23 Range/Units 07:05 POC Glucose (mg/dL) 162 H (70-110) mg/dL Microbiology - Last 24 Hours (Table) 05/10/23 11:35 Anaerobic Culture - Final Groin Anaerobic Gm Negative Bacilli Anaerobic Gm Negative Bacilli#2 05/10/23 03:30 Blood Culture - Preliminary Blood 05/10/23 03:45 Blood Culture - Preliminary Blood
--- NOTE | 2023-05-14 11:53 | P.PN ---
Subjective Progress Note Date: 05/14/23 Principal diagnosis: Left groin infected wound Patient is a 87-year-old female with a past medical history Nupercaine for osteoarthritis diabetes mellitus did have history of metastatic melanoma in this patient presented to hospital after the patient have a fall from standing at home patient mention she felt very weak, patient did have a nonhealing wound to the left groin area with some cellulitis concerning for wound infection. On today's evaluation that is 05/14/2023, the patient remains to be afebrile, the patient is breathing comfortably on room air , the patient denies any chest pain or cough and no sputum production, patient denies nausea/vomiting or diarr hea , no abdominal pain, the patient denies pain to the left groin wound area. WBC 6.4, Cr is 0.54 as of 05/12/2023 cultures are currently growing anaerobes Objective - Vital Signs Vital signs: Vital Signs Temp 98.5 F 05/14/23 07:06 Pulse 64 05/14/23 07:06 Resp 16 05/14/23 07:06 BP 122/65 05/14/23 07:06 Pulse Ox 95 05/14/23 07:06 FiO2 Intake & Output 05/13/23 05/14/23 05/14/23 18:59 06:59 18:59 Intake Total 590 Output Total 600 500 Balance -600 90 Intake: Oral 590 Output: Urine 600 500 Other: Voiding Method Bedside Commode Bedside Commode Bedside Commode Diaper Diaper Diaper Incontinent Incontinent Incontinent External Catheter External Catheter External Catheter - Exam GENERAL DESCRIPTION: Elderly female lying in bed in no distress RESPIRATORY SYSTEM: Unlabored breathing , coarse breath sounds bilaterally HEART: S1 S2 regular rate and rhythm ,no loud murmurs ABDOMEN: Soft , no tenderness, left groin wound is currently dressed EXTREMITIES: No edema feet - Labs CBC & Chem 7: 05/12/23 06:21 05/12/23 06:21 Labs: Abnormal Lab Results - Last 24 Hours (Table) 05/13/23 05/13/23 05/13/23 Range/Units 12:12 17:09 20:13 POC Glucose (mg/dL) 183 H 251 H 145 H (70-110) mg/dL 05/14/23 Range/Units 07:05 POC Glucose (mg/dL) 162 H (70-110) mg/dL Microbiology - Last 24 Hours (Table) 05/10/23 11:35 Anaerobic Culture - Final Groin Anaerobic Gm Negative Bacilli Anaerobic Gm Negative Bacilli#2 05/10/23 03:30 Blood Culture - Preliminary Blood 05/10/23 03:45 Blood Culture - Preliminary Blood Assessment and Plan (1) Cellulitis Current Visit: Yes Status: Acute Priority: High Code(s): L03.90 - CELLULITIS, UNSPECIFIED SNOMED Code(s): 320736613 (2) 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 Current Visit: Yes Status: Acute Code(s): L97.125 - NON-PRS CHR ULC OF LEFT THIGH WITH MSL INVL W/O EVD OF NECR SNOMED Code(s): 62025232795227094 Plan: 1patient with a nonhealing wound to the left groin area and this patient did have history of recurrent melanoma to the left groin, with a necrotic wound with some slough tissue at the base and surrounding erythema and foul-smelling draina ge secondary infection not entirely excluded 2-aerobic and anaerobic culture has been obtained and currently growing mostly anaerobes 3patient has shown clinical improvment , patient to continue with the Unasyn while inpatient and plan to finish therapy with oral Augmentin 10 days discussed with the admitting physician Dictation was produced using [employer] dictation software. please excuse any gr ammatical, word or spelling errors. Time with Patient: Less than 30
[2023-05-14] MEDS: CHOLECALCIFEROL 25 MCG (1000 IU) TABLET PO SCH (12:25)
[2023-05-14 12:27] LABS: Glucose,Whole Blood 185 mg/dL (70-110)
[2023-05-14 12:33] LABS: HCT 26.8 % (37.2-46.3); HGB 8.4 d/dL (12.0-15.0); MCH 28.8 pg (27.0-32.0); MCHC 31.3 d/dL (32.0-37.0); MCV 91.8 FL (80.0-97.0); NRBC Per 100 WBC 0 X 10*3/uL (0.00-0.01); Platelet Count 430 X 10*3/uL (140-440); RBC 2.92 X 10*6/uL (4.10-5.20); RDW 13.4 % (11.5-14.5); WBC 5.79 X 10*3/uL (4.50-10.00)
[2023-05-14 12:42] LABS: ALT <5 U/L (8-44); AST 11 U/L (13-35); Albumin 2.7 d/dL (3.8-4.9); Albumin/Globulin Ratio 1.12 Ratio (1.60-3.17); Alkaline Phosphatase 58 U/L (41-126); BUN/Creat Ratio 21.43 Ratio (12.00-20.00); Calcium 8.3 mg/dL (8.7-10.3); Carbon Dioxide 26.3 mmol/L (21.6-31.8); Chloride 101 mmol/L (96-109); Globulin 2.4 d/dL (1.6-3.3); Glucose 163 mg/dL (70-110); Potassium 4.3 mmol/L (3.5-5.5); Sodium 138 mmol/L (135-145); Total Bilirubin <0.2 mg/dL (0.3-1.2); Total Protein 5.1 d/dL (6.2-8.2)
[2023-05-14 17:02] LABS: Glucose,Whole Blood 219 mg/dL (70-110)
[2023-05-14 20:19] LABS: Glucose,Whole Blood 222 mg/dL (70-110)
[2023-05-14] MEDS: ATORVASTATIN 20 MG TAB PO SCH (20:46)
[2023-05-15] MEDS: GABAPENTIN 100 MG CAP PO SCH ×2 (00:05→08:14)
[2023-05-15] MEDS: CARBIDOPA-LEVODOPA ER 50-200MG 1 EACH TABLET.ER PO SCH ×2 (01:17→08:32)
[2023-05-15] MEDS: AMPICILLIN-SULBACTAM 3 GM in SODIUM CHLORIDE 0.9% 100 ML IVPB SCH ×2 (03:40→12:42)
[2023-05-15] MEDS: LEVOTHYROXINE 100 MCG TAB PO SCH (05:39)
[2023-05-15 07:16] LABS: Glucose,Whole Blood 185 mg/dL (70-110)
[2023-05-15] MEDS: PANTOPRAZOLE 40 MG TABLET PO SCH (08:14)
[2023-05-15] MEDS: FERROUS SULFATE 325 MG TAB PO SCH (08:14)
[2023-05-15] MEDS: CITALOPRAM HYDROBROMIDE 20 MG TAB PO SCH (08:14)
[2023-05-15] MEDS: ASPIRIN 81 MG PO SCH (08:15)
[2023-05-15] MEDS: INSULIN ASPART (NovoLOG) 100 UNIT/ML VIAL SQ SCH ×2 (08:30→12:42)
[2023-05-15 11:56] LABS: Glucose,Whole Blood 184 mg/dL (70-110)
--- NOTE | 2023-05-15 12:16 | P.PN ---
Subjective Progress Note Date: 05/15/23 Principal diagnosis: Left groin infected wound Patient is a 87-year-old female with a past medical history Nupercaine for osteoarthritis diabetes mellitus did have history of metastatic melanoma in this patient presented to hospital after the patient have a fall from standing at home patient mention she felt very weak, patient did have a nonhealing wound to the left groin area with some cellulitis concerning for wound infection. On today's evaluation that is 05/15/2023, the patient continues to be afebrile, the patient is breathing comfortably on room air and no need for supplemental oxygen, the patient denies any chest pain or cough , patient denies nausea/vomi ting or diarrhea , no abdominal pain the patient denies pain to the left groin wound area. Currently waiting for placement Patient did have a white count of 5.79, creatinine 0.7 as of yesterday cultures are currently growing anaerobes Objective - Vital Signs Vital signs: Vital Signs Temp 98.1 F 05/15/23 07:52 Pulse 63 05/15/23 07:52 Resp 17 05/15/23 07:52 BP 133/72 05/15/23 07:52 Pulse Ox 96 05/15/23 07:52 FiO2 Intake & Output 05/14/23 05/15/23 05/15/23 18:59 06:59 18:59 Intake Total 120 120 Output Total 600 1300 Balance -600 -1180 120 Intake: Oral 120 120 Output: Urine 600 1300 Other: Voiding Method Bedside Commode Bedside Commode Bedside Commode Diaper Diaper Diaper Incontinent Incontinent Incontinent External Catheter External Catheter External Catheter - Exam GENERAL DESCRIPTION: Elderly female lying in bed in no distress RESPIRATORY SYSTEM: Unlabored breathing , coarse breath sounds bilaterally HEART: S1 S2 regular rate and rhythm ,no loud murmurs ABDOMEN: Soft , no tenderness, left groin wound is currently dressed EXTREMITIES: No edema feet - Labs CBC & Chem 7: 05/14/23 06:41 05/14/23 06:41 Labs: Abnormal Lab Results - Last 24 Hours (Table) 05/14/23 05/14/23 05/14/23 Range/Units 06:41 06:41 12:26 RBC 2.92 L (4.10-5.20) X 10*6/uL Hgb 8.4 L (12.0-15.0) d/dL Hct 26.8 L (37.2-46.3) % MCHC 31.3 L (32.0-37.0) d/dL MPV 8.0 L (9.5-12.2) FL BUN/Creatinine Ratio 21.43 H (12.00-20.00) Ratio Glucose 163 H (70-110) mg/dL POC Glucose (mg/dL) 185 H (70-110) mg/dL Calcium 8.3 L (8.7-10.3) mg/dL Total Bilirubin <0.2 L (0.3-1.2) mg/dL AST 11 L (13-35) U/L ALT <5 L (8-44) U/L Total Protein 5.1 L (6.2-8.2) d/dL Albumin 2.7 L (3.8-4.9) d/dL Albumin/Globulin Ratio 1.12 L (1.60-3.17) Ratio 05/14/23 05/14/23 05/15/23 Range/Units 17:01 20:18 07:11 RBC (4.10-5.20) X 10*6/uL Hgb (12.0-15.0) d/dL Hct (37.2-46.3) % MCHC (32.0-37.0) d/dL MPV (9.5-12.2) FL BUN/Creatinine Ratio (12.00-20.00) Ratio Glucose (70-110) mg/dL POC Glucose (mg/dL) 219 H 222 H 185 H (70-110) mg/dL Calcium (8.7-10.3) mg/dL Total Bilirubin (0.3-1.2) mg/dL AST (13-35) U/L ALT (8-44) U/L Total Protein (6.2-8.2) d/dL Albumin (3.8-4.9) d/dL Albumin/Globulin Ratio (1.60-3.17) Ratio 05/15/23 Range/Units 11:54 RBC (4.10-5.20) X 10*6/uL Hgb (12.0-15.0) d/dL Hct (37.2-46.3) % MCHC (32.0-37.0) d/dL MPV (9.5-12.2) FL BUN/Creatinine Ratio (12.00-20.00) Ratio Glucose (70-110) mg/dL POC Glucose (mg/dL) 184 H (70-110) mg/dL Calcium (8.7-10.3) mg/dL Total Bilirubin (0.3-1.2) mg/dL AST (13-35) U/L ALT (8-44) U/L Total Protein (6.2-8.2) d/dL Albumin (3.8-4.9) d/dL Albumin/Globulin Ratio (1.60-3.17) Ratio Assessment and Plan (1) Cellulitis Current Visit: Yes Status: Acute Priority: High Code(s): L03.90 - CELLU LITIS, UNSPECIFIED SNOMED Code(s): 479533881 (2) 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 Current Visit: Yes Status: Acute Code(s): L97.125 - NON-PRS CHR ULC OF LEFT THIGH WITH MSL INVL W/O EVD OF NECR SNOMED Code(s): 63516852033513287 Plan: 1patient with a nonhealing wound to the left groin area and this patient did have history of recurrent melanoma to the left groin, with a necrotic wound with some slough tissue at the base and surrounding erythema and foul-smelling drainage secondary infection not entirely excluded 2-aerobic and anaerobic culture has been obtained and currently growing mostly anaerobes 3patient is slowly clinically improving plan is to continue with the Unasyn while inpatient and finish therapy with oral Augmentin 10 days on discharge and close outpatient follow-up Dictation was produced using [employer] dictation software. please excuse any grammatical, word or spelling errors. Time with Patient: Less than 30
[2023-05-15] MEDS: CHOLECALCIFEROL 25 MCG (1000 IU) TABLET PO SCH (12:42)
--- NOTE | 2023-05-15 13:17 | P.DS ---
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 Continue antibiotics in the form of oral augmentin BID for the next 10 days. Follow up with Dr. Brasher in 1 week. Continue local wound care to the left groin with absorptive silver moistened with saline, dry gauze, and border foam. Change MWF. Follow up at [facility]. Can change gauze and reinforce as needed if wound becomes saturated with drainage. Continue off Reclast. Patient cannot start on chemotherapy while at subacute rehab, per oncology patient will follow up on discharge and is still pending prior authorization to begin Nivolumab. Repeat labs in 2 to 3 days. Follow up with PCP. Dr Ting Vazquez and also with Dr. Barbara Licona. Hospital Course This is an 87-year-old lady with past medical significant for melanoma, hypothyroidism, hyperlipidemia presented to the ER after having a fall. Patient stated that she was all right when while at home she fell from a standing position. Patient stated that she only became weak and lost her balance, she didn't lose her consciousness. There was no complain of any jerking movement of her extremity, no seizure-like activity, no fecal or urinary incontinence. Patient currently on antibiotics for her cellulitis of her abdominal wall. Patient stated that she has been having a lot of discharge from her abdominal wall which is very foul-smelling. Denies any fever or chills. No complaints of nausea, and abdominal pain. Because of this fall, patient was brought to the ER. Initial lab work done in the ER showed WBC 8.1, hemoglobin 9.7, platelet count 566, sodium 135, potassium 4, BUN 18, creatinine 0.64, glucose 181, albumin 3.2. UA negative for infection. CT head negative for any acute intracranial process. CT cervical spine negative for any fractures Patient admitted to medicine service with ID consultation. Started empirically on IV unasyn and wound cultures were done of the left groin wound showing Anaerobic gram negative bacilli #1 and #2. Patient was evaluated by the wound care center with recommendations for apsorptive silver as above. 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 Currently no complaints of chest pain, no shortness of breath, no nausea vomiting or diarrhea. No abdominal pain. Patient is having bowel movements. Urinating without difficulty. White blood cell count remains normal. Renal function WNL. Blood glucose 140-180s. Lungs are clear S1 S2 auscultated abdomen is soft and nontender. Focal neurological exam is negative. The wound bed has some slough and serosanguineous purulent drainage. Patient will be discharge to subacute rehab. Please see medication reconciliation for a list of current medication. Thank you for allowing us to participate in the care of this patient. The impression and plan of care has been dictated by Marsha Arceo, Nurse Practitioner as directed. Dr. Josh MD I have performed a history and physical examination and medical decision making of this patient, discussed the same with the dictator, and agree with the dictators assessment and plan as written, documented as a scribe. Based on total visit time, I have performed more than 50% of this visit. Patient Condition at Discharge: Stable Plan - Discharge Summary New Discharge Prescriptions: New Amoxic-Pot Clav 875-125Mg [Augmentin 875-125] 1 tab PO Q12HR 10 Days #20 tab HYDROcodone/APAP 5-325MG [Redfield 5-325] 1 each PO Q6HR PRN #4 tab PRN Reason: Moderate Pain (Scale 4 To 6) INSULIN ASPART (NovoLOG) [NovoLOG (formulary)] 0 unit SQ ACHS #0 each Continue Citalopram Hydrobromide [Citalopram HBr] 20 mg PO DAILY Aspirin [Adult Low Dose Aspirin EC] 81 mg PO DAILY Calcium Carbonate/Vitamin D3 [Calcium 600 mg-D3 10 Mcg (400 Iu)] 1 cap PO BID@0900,1700 Ferrous Sulfate [Iron (65 MG Elemental)] 325 mg PO DAILY Mag Hydrox/Al Hydrox/Simeth [Maalox] 15 ml PO Q6HR PRN ml PRN Reason: Indigestion rOPINIRole HCL [Requip] 1 mg PO HS sitaGLIPtin PHOS/metFORMIN HCL [Janumet 50-1,000 mg Tablet] 1 tab PO DAILY Simvastatin [Zocor] 40 mg PO HS Omeprazole 20 mg PO DAILY Carbidopa-Levodopa ER 50-200Mg [Sinemet CR 50-200 mg] 1 tab PO Q8H Levothyroxine Sodium [Synthroid] 100 mcg PO DAILY Cholecalciferol [Vitamin D3 (25 Mcg = 1000 Iu)] 25 mcg PO DAILY@1200 Acetaminophen-Codeine 300-30mg [Tylenol w/codeine #3] 1 tab PO Q6HR PRN PRN Reason: Pain Gabapentin [Neurontin] 200 mg PO Q8HR #4 cap Discontinued Zoledronic Acid/Mannitol-Water [Reclast 5 mg/100 ml Solution] 5 mg IV Q365D Ibuprofen [Motrin Ib] 600 mg PO Q6H PRN PRN Reason: Pain Nitrofurantoin Monohyd/M-Cryst [Macrobid] 100 mg PO DAILY Discharge Medication List Aspirin [Adult Low Dose Aspirin EC] 81 mg PO DAILY 10/04/20 [History] Citalopram Hydrobromide [Citalopram HBr] 20 mg PO DAILY 10/04/20 [History] Omeprazole 20 mg PO DAILY 10/04/20 [History] Simvastatin [Zocor] 40 mg PO HS 10/04/20 [History] Calcium Carbonate/Vitamin D3 [Calcium 600 mg-D3 10 Mcg (400 Iu)] 1 cap PO BID@0900,1700 01/06/23 [History] Carbidopa-Levodopa ER 50-200Mg [Sinemet CR 50-200 mg] 1 tab PO Q8H 01/06/23 [History] Cholecalciferol [Vitamin D3 (25 Mcg = 1000 Iu)] 25 mcg PO DAILY@1200 01/06/23 [History] Ferrous Sulfate [Iron (65 MG Elemental)] 325 mg PO DAILY 01/06/23 [History] Levothyroxine Sodium [Synthroid] 100 mcg PO DAILY 01/06/23 [History] Mag Hydrox/Al Hydrox/Simeth [Maalox] 15 ml PO Q6HR PRN ml 01/11/23 [Rx] Acetaminophen-Codeine 300-30mg [Tylenol w/codeine #3] 1 tab PO Q6HR PRN 05/10/23 [History] rOPINIRole HCL [Requip] 1 mg PO HS 05/10/23 [History] sitaGLIPtin PHOS/metFORMIN HCL [Janumet 50-1,000 mg Tablet] 1 tab PO DAILY 05/10/23 [History] Amoxic-Pot Clav 875-125Mg [Augmentin 875-125] 1 tab PO Q12HR 10 Days #20 tab 05/15/23 [Rx] Gabapentin [Neurontin] 200 mg PO Q8HR #4 cap 05/15/23 [Rx] HYDROcodone/APAP 5-325MG [Redfield 5-325] 1 each PO Q6HR PRN #4 tab 05/15/23 [Rx] INSULIN ASPART (NovoLOG) [NovoLOG (formulary)] 0 unit SQ ACHS #0 each 05/15/23 [Rx] Follow up Appointment(s)/Referral(s): Ting Vazquez MD [Primary Care Provider] - 1-2 days Barbara Licona MD [Family Provider] - 1 Week Shalini Brasher MD [STAFF PHYSICIAN] - 1 Week Ambulatory/Diagnostic Orders: Basic Metabolic Panel [LAB.AMB] Location: None Selected Complete Blood Count w/diff [LAB.AMB] Time Frame: 3 Days, Location: None Selected Activity/Diet/Wound Care/Special Instructions: Continue antibiotics in the form of oral augmentin BID for the next 10 days. Follow up with Dr. Brasher in 1 week. Continue local wound care to the left groin with absorptive silver moistened with saline, dry gauze, and border foam. Change MWF. Follow up at [facility]. Continue off Reclast. Patient cannot start on chemotherapy while at subacute rehab, per oncology patient will follow up on discharge and is still pending prior authorization to begin Nivolumab. Repeat labs in 2 to 3 days. Discharge Disposition: TRANSFER TO SNF/ECF
[2023-05-15 14:00] VITALS: BP 128/66; PULSE 65; RESP 18; TEMP 98
== END 2023-05-15 15:30 | DRG 603 ==
LOC: EC 23:21 → 5NMEDONC 05-10 04:07
PROVIDERS: ADMIT Hospitalist; ATTEND Hospitalist
DX: L03.314 Cellulitis of groin (principal); C79.2 Secondary malignant neoplasm of skin; L98.495 Non-pressure chronic ulcer of skin of other sites with muscle involvement without evidence of necrosis; E11.622 Type 2 diabetes mellitus with other skin ulcer; L02.214 Cutaneous abscess of groin; S09.90XA Unspecified injury of head, initial encounter; G20.A1 Parkinson's disease without dyskinesia, without mention of fluctuations; E03.9 Hypothyroidism, unspecified; E78.5 Hyperlipidemia, unspecified; I10 Essential (primary) hypertension; R32 Unspecified urinary incontinence; M19.90 Unspecified osteoarthritis, unspecified site; M54.2 Cervicalgia; Z79.82 Long term (current) use of aspirin; Z79.890 Hormone replacement therapy; Z79.84 Long term (current) use of oral hypoglycemic drugs; Z79.899 Other long term (current) drug therapy; Z85.828 Personal history of other malignant neoplasm of skin; W01.0XXA Fall on same level from slipping, tripping and stumbling without subsequent striking against object, initial encounter; Y92.009 Unspecified place in unspecified non-institutional (private) residence as the place of occurrence of the external cause; Z85.820 Personal history of malignant melanoma of skin
CPT/HCPCS: 36415; 70450; 72125; 80053; 81003; 83036; 83605; 85025; 85027; 87040; 87070; 87075; 87205; 96365; 99285

== ENCOUNTER 2023-06-02 19:54 | Emergency (ER) | payer MEDICARE ==
--- NOTE | 2023-06-02 20:12 | ED ---
Fall HPI - General Source: patient, family, EMS, RN notes reviewed Mode of arrival: EMS <Aliza Vincent - Last Filed: 06/02/23 22:22> <Ramirez Khanna - Last Filed: 06/03/23 00:29> - General Chief Complaint: Fall Stated Complaint: Fall Time Seen by Provider: 06/02/23 20:05 - History of Present Illness Initial Comments: Patient is an 87-year-old female presented ER with chief complaint of a fall. Patient states she was standing in her bathroom putting on her nightgown when she fell. Patient states she falls all the time. Patient denies any dizziness/lightheadedness, chest pain, or shortness of breath prior to incident. She denies loss of consciousness, blood thinner use, other injuries. (Aliza Vincent) - Related Data Home Medications Medication Instructions Recorded Confirmed Aspirin [Adult Low Dose Aspirin EC] 81 mg PO DAILY 10/04/20 05/10/23 Citalopram Hydrobromide 20 mg PO DAILY 10/04/20 05/10/23 [Citalopram HBr] Omeprazole 20 mg PO DAILY 10/04/20 05/10/23 Simvastatin [Zocor] 40 mg PO HS 10/04/20 05/10/23 Calcium Carbonate/Vitamin D3 1 cap PO BID@0900,1700 01/06/23 05/10/23 [Calcium 600 mg-D3 10 Mcg (400 Iu)] Carbidopa-Levodopa ER 50-200Mg 1 tab PO Q8H 01/06/23 05/10/23 [Sinemet CR 50-200 mg] Cholecalciferol [Vitamin D3 (25 25 mcg PO DAILY@1200 01/06/23 05/10/23 Mcg = 1000 Iu)] Ferrous Sulfate [Iron (65 MG 325 mg PO DAILY 01/06/23 05/10/23 Elemental)] Levothyroxine Sodium [Synthroid] 100 mcg PO DAILY 01/06/23 05/10/23 Acetaminophen-Codeine 300-30mg 1 tab PO Q6HR PRN 05/10/23 05/10/23 [Tylenol w/codeine #3] rOPINIRole HCL [Requip] 1 mg PO HS 05/10/23 05/10/23 sitaGLIPtin PHOS/metFORMIN HCL 1 tab PO DAILY 05/10/23 05/10/23 [Janumet 50-1,000 mg Tablet] Previous Rx's Medication Instructions Recorded Mag Hydrox/Al Hydrox/Simeth 15 ml PO Q6HR PRN ml 01/11/23 [Maalox] Amoxic-Pot Clav 875-125Mg 1 tab PO Q12HR 10 Days #20 tab 05/15/23 [Augmentin 875-125] Gabapentin [Neurontin] 200 mg PO Q8HR #4 cap 05/15/23 HYDROcodone/APAP 5-325MG [Cypress 1 each PO Q6HR PRN #4 tab 05/15/23 5-325] INSULIN ASPART (NovoLOG) [NovoLOG 0 unit SQ ACHS #0 each 05/15/23 (formulary)] Allergies Allergy/AdvReac Type Severity Reaction Status Date / Time No Known Allergies Allergy Verified 06/02/23 20:03 Review of Systems ROS Other: All systems not noted in ROS Statement are negative. <Aliza Vincent - Last Filed: 06/02/23 22:22> ROS Other: All systems not noted in ROS Statement are negative. <Ramirez Khanna - Last Filed: 06/03/23 00:29> ROS Statement: Those systems with pertinent positive or pertinent negative responses have been documented in the HPI. Past Medical History Past Medical History: Cancer, Diabetes Mellitus, Musculoskeletal Disorder, Osteoarthritis (OA) Additional Past Medical History / Comment(s): basal cell skin cancer, metastatic melanoma j History of Any Multi-Drug Resistant Organisms: None Reported Past Surgical History: Orthopedic Surgery Additional Past Surgical History / Comment(s): ORIF right hip, ORIF right wrist, ORIF right ankle Past Anesthesia/Blood Transfusion Reactions: No Reported Reaction Past Psychological History: No Psychological Hx Reported Smoking Status: Never smoker Past Alcohol Use History: None Reported Past Drug Use History: None Reported - Past Family History Mother Family Medical History: No Reported History <Aliza Vincent - Last Filed: 06/02/23 22:22> General Exam Limitations: no limitations General appearance: alert, in no apparent distress Head exam: Present: atraumatic, normocephalic, normal inspection Eye exam: Present: normal appearance, PERRL, EOMI. Absent: scleral icterus, conjunctival injection, periorbital swelling Pupils: Present: normal accommodation Neck exam: Present: normal inspection. Absent: tenderness, meningismus, lymphadenopathy Respiratory exam: Present: normal lung sounds bilaterally. Absent: respiratory distress, wheezes, rales, rhonchi, stridor Cardiovascular Exam: Present: regular rate, normal rhythm, normal heart sounds. Absent: systolic murmur, diastolic murmur, rubs, gallop, clicks Extremities exam: Present: normal inspection, full ROM, normal capillary refill. Absent: tenderness, pedal edema, joint swelling, calf tenderness Neurological exam: Present: alert, oriented X3, CN II-XII intact Psychiatric exam: Present: normal affect, normal mood Skin exam: Present: other (2 cm laceration noted to left lateral eyebrow. Ecchymosis and hematoma are present.) <Aliza Vincent - Last Filed: 06/02/23 22:22> Course Vital Signs 06/02/23 20:00 Temperature 97.0 F L Pulse Rate 70 Respiratory 16 Rate Blood Pressure 150/82 O2 Sat by Pulse 98 Oximetry Procedures - Laceration Laceration #1 Consent Obtained: verbal consent Indication: laceration Site: face Size (cm): 2 Description: linear Depth: simple, single layer Anesthetic Used: lidocaine 1% Anesthesia Technique: local infiltration Amount (mls): 3 Pre-repair: wound explored Type of Sutures: nylon Size of Sutures: 5-0 Number of Sutures: 3 Technique: simple, interrupted Patient Tolerated Procedure: well, no complications <Aliza Vincent - Last Filed: 06/02/23 22:22> Medical Decision Making - Radiology Data Radiology results: report reviewed, image reviewed <Aliza Vincent - Last Filed: 06/02/23 22:22> <Ramirez Khanna - Last Filed: 06/03/23 00:29> - Medical Decision Making Was pt. sent in by a medical professional or institution (, [facility], F[employer]ELANCE MAKEUP ARTIST, urgent care, hospital, or half-way...) When possible be specific @ -No Did you speak to anyone other than the patient for history (EMS, parent, family, police, friend...)? What history was obtained from this source @ -Family Did you review nursing and triage notes (agree or disagree)? Why? @ -I reviewed and agree with nursing and triage notes Were old charts reviewed (outside hosp., previous admission, EMS record, old EKG, old radiological studies, urgent care reports/EKG's, half-way records)? Report findings @ -No old charts were reviewed Differential Diagnosis (chest pain, altered mental status, abdominal pain women, abdominal pain men, vaginal bleeding, weakness, fever, dyspnea, syncope, headache, dizziness, GI bleed, back pain, seizure, CVA, palpatations, mental health, musculoskeletal)? @ -[Differential Musculoskeletal: Muscular strain, contusion, ligament sprain, fracture, arthritis, septic arthritis, bursitis, cellulitis, muscle spasm, nerve compression, DVT, arterial occlusion, herpes zoster, electrolyte abnormality, tumor.... This is not meant to be in all inclusive list EKG interpreted by me (3pts min.). @ -None X-rays interpreted by me (1pt min.). @ -None done CT interpreted by me (1pt min.). @ -CT brain C-spine shows no acute intracranial hemorrhage/mass effect. No fractures or dislocations are noted. U/S interpreted by me (1pt. min.). @ -None done What testing was considered but not performed or refused? (CT, X-rays, U/S, labs)? Why? @ -None What meds were considered but not given or refused? Why? @ -None Did you discuss the management of the patient with other professionals (professionals i.e. , PA, FREELANCE MAKEUP ARTIST, lab, RT, psych nurse, director social, exec. creative director, teacher, immigration services officer, clinical case manager)? Give summary @ -No Was smoking cessation discussed for >3mins.? @ -No Was critical care preformed (if so, how long)? @ -No Were there social determinants of health that impacted care today? How? (Homelessness, low income, unemployed, alcoholism, drug addiction, transportation, low edu. Level, literacy, decrease access to med. care, snf, rehab)? @ -No Was there de-escalation of care discussed even if they declined (Discuss DNR or withdrawal of care, Hospice)? DNR status @ -No What co-morbidities impacted this encounter? (DM, HTN, Smoking, COPD, CAD, Cancer, CVA, ARF, Chemo, Hep., AIDS, mental health diagnosis, sleep apnea, morbid obesity)? @ -None Was patient admitted / discharged? Hospital course, mention meds given and route, prescriptions, significant lab abnormalities, going to OR and other pertinent info. @ -Upon examination, patient had a 2 cm laceration to left eyebrow. Patient was complaining of left-sided rib pain. CT brain C-spine shows no acute intracranial hemorrhage/mass effect. No fractures or dislocations are noted. Laceration was sutured shut with 3 simple interrupted sutures. Bacitracin was placed over sutures. Upon reevaluation, patient was complaining of achy pain all over. Patient was given by mouth Tylenol. This case being signed out to Matthew Khanna pending chest x-ray results and disposition. (Aliza Vincent) Was patient admitted / discharged? Hospital course, mention meds given and route, prescriptions, significant lab abnormalities, going to OR and other p ertinent info. @ -Discharge 87-year-old female presenting status post mechanical fall onto her left side. Patient had CT performed that showed no acute process. Patient signed out to me pending x-ray results. X-ray shows possible fracture of the left seventh rib. No other acute findings. Patient provided incentive spirometer. Discharged home in stable condition with starter pack of Tylenol 3's. Discussed return precautions with patient family who verbalizes agreement. Undiagnosed new problem with uncertain prognosis? @ -No Drug Therapy requiring intensive monitoring for toxicity (Heparin, Nitro, Insulin, Cardizem)? @ -No Were any procedures done? @ -No Diagnosis/symptom? @ -s/p mechanical fall, seventh left rib fracture Acute, or Chronic, or Acute on Chronic? @ -Acute Uncomplicated (without systemic symptoms) or Complicated (systemic symptoms)? @ -Uncomplicated Side effects of treatment? @ -No Exacerbation, Progression, or Severe Exacerbation? @ -No Poses a threat to life or bodily function? How? (Chest pain, USA, SC, pneumonia, PE, COPD, DKA, ARF, appy, cholecystitis, CVA, Diverticulitis, Homicidal, Suicidal, threat to staff... and all critical care pts) @ -No (Ramirez Khanna) Disposition <Aliza Vincent - Last Filed: 06/02/23 22:22> Is patient prescribed a controlled substance at d/c from ED?: No Time of Disposition: 00:28 <Ramirez Khanna - Last Filed: 06/03/23 00:29> Clinical Impression: Rib fracture, Fall Disposition: HOME SELF-CARE Condition: Good Instructions (If sedation given, give patient instructions): Fall Prevention for Older Adults (ED), How to Use an Incentive Spirometer (ED) Additional Instructions: Please return to the Emergency Department if symptoms worsen or any other concerns. Please use your incentive spirometer as instructed. Follow-up with your primary care physician. Referrals: Ting Vazquez MD [Primary Care Provider] - 1-2 days
[2023-06-02 20:23] VITALS: RESP 16; TEMP 97
[2023-06-02] MEDS ORDERED: BACITRACIN OINT 1 EACH PACKET TOPICAL ONE (21:27)
[2023-06-02] MEDS ORDERED: LIDOCAINE 1% INJ 10MG/ML (20 ML MDV) SQ ONE (21:27)
--- NOTE | 2023-06-02 22:11 | CT ---
EXAMINATION TYPE: CT brain cspine wo con CT DLP: 1271.7 mGycm, Automated exposure control for dose reduction was used. DATE OF EXAM: 06/02/2023 8:53 PM COMPARISON: Same study 05/10/2023 and 01/06/2023 CLINICAL INDICATION:Female, 87 years old with history of pain; PAIN AFTER FALL TECHNIQUE: Brain: Multiple axial CT images of the brain were obtained without IV contrast. Cspine: Axial CT images from the skull base to the inferior aspect of T2 we obtained without intraven ous contrast. Coronal and sagittal reformatted images were also reviewed. FINDINGS: Brain: Extra-axial spaces: No abnormal extra-axial fluid collections. Ventricular system: Appear dilated in proportion to the degree of cerebral atrophy. Cavum septum aimee ucidum noted. Cerebral parenchyma: No increased attenuation to suggest acute intraparenchymal hemorrhage. The gra y-white matter interface appears maintained. Moderate generalized brain atrophy. Scattered hypoatte nuating areas are seen within the cerebral white matter, nonspecific but most often seen with chronic microvascular ischemic changes; moderate in degree. Cerebellum: No acute abnormality. Mass effect: No evidence of mass effect or midline shift. Intracranial vasculature: Atherosclerotic calcifications of the larger arteries near the skull base. Soft tissues: Normal. Visualized orbits: Orbital contents appear grossly intact. Calvarium/osseous structures: No evidence of calvarial fracture. Paranasal sinuses and mastoid air cells: Clear MRI is more sensitive for detecting acute processes such as infarct, and may be considered if clinica lly warranted. Cervical spine: Generalized osteopenia and degenerative changes. The cranial cervical junction appears maintained. C1 shows no clear evidence of acute fracture. There is again mild retrolisthesis of the left lateral ma ss C1 on C2 which is similar to prior, may be degenerative or related to the healing C2 fracture. Red emonstration of nonacute, healed/healing C2 fracture which on the right involves the inferior base of dens and extends inferiorly to the right lateral mass and right pedicle and on the left extends to t he left base of the dens farther superiorly (based on original imaging this overall may be considered type 3, although the fracture location on the left is close to type 2) with minimal displacement and mild height loss of the right lateral mass of C2, similar to previous. Trace anterolisthesis C7 on T 1 vertebral bodies is stable, appears degenerative. Some height loss along the inferior endplate T2 a ppears stable with some associated sclerosis. No new vertebral height loss is seen. No definite new f racture or malalignment. The aforementioned degenerative changes cause mild canal and moderate bilateral neural foraminal sten osis C3-C4, and C4-C5. Mild canal stenosis C5-C6 and C6-C7. Mild canal stenosis and mild bilateral ne ural foraminal stenosis C7-T1. If there is further concern for the canal/contents, an MRI may be of b enefit. Visualized lung apices show no acute infiltrates. Densely calcified adjacent nodules in the left thyr oid, very likely benign. Small coarse calcifications along the lateral margin of the right thyroid. M oderate arterial vascular calcifications are seen in the upper chest and neck, including the bilatera l carotid bifurcations. IMPRESSION: CT head: 1. No acute intracranial CT abnormality. 2. Atrophy and chronic microvascular ischemic white matter changes. CT cervical spine: 1. No evidence of new acute cervical spine fracture or traumatic malalignment. 2. Similar appearance and alignment of nonacute, healed/healing fracture of C2 involving the dens as described.
[2023-06-02] MEDS ORDERED: ACETAMINOPHEN TAB 325 MG TAB PO STA (22:17)
[2023-06-02] MEDS ORDERED: MORPHINE SULFATE 4 MG/ML SYRINGE IM STA (23:10)
--- NOTE | 2023-06-03 00:09 | XR ---
EXAM: XR Chest, 2 Views CLINICAL HISTORY: ITS.REASON XR Reason: pain TECHNIQUE: Frontal and lateral views of the chest. COMPARISON: 01/06/2023. FINDINGS: Lungs: A 2 cm ovoid nodule is noted at the left midlung of uncertain etiology. No consolidation. Pleural space: Unremarkable. No pneumothorax. Heart: There is cardiomegaly. Mediastinum: Unremarkable. Normal mediastinal contour. Bones/joints: There is suggestion of a probable acute/subacute fracture of the posterior aspect of the left seventh rib. Other findings: Hypoaeration. IMPRESSION: 1. Probable subtle fracture of the posterior medial aspect of the left seventh rib. 2. 2 cm ovoid density left midlung which could represent area of pulmonary probable bruising. A true pulmonary nodule however cannot be excluded. 3. Cardiomegaly. 4. Hypoaeration. 5. CT imaging of the chest is advised to follow-up due to the equivocal findings.
[2023-06-03] MEDS ORDERED: ACET/COD 300 MG/30 MG STARTER PACK 6 TAB BTL PO STA (00:23)
[2023-06-03 01:20] VITALS: BP 144/81; PULSE 69
== END 2023-06-03 00:50 | disposition home or self-care (01) ==
LOC: EC 19:54
DX: S22.32XA Fracture of one rib, left side, initial encounter for closed fracture (principal); S01.112A Laceration without foreign body of left eyelid and periocular area, initial encounter; E11.9 Type 2 diabetes mellitus without complications; Z79.82 Long term (current) use of aspirin; Z79.84 Long term (current) use of oral hypoglycemic drugs; W18.30XA Fall on same level, unspecified, initial encounter
CPT/HCPCS: 71046; 72125; 70450; 12011; 99285; 96372; J2270; J2001

== ENCOUNTER 2023-06-18 18:50 | Emergency (ER) | payer MEDICARE ==
[2023-06-18 19:27] VITALS: TEMP 98.1
[2023-06-18] MEDS ORDERED: SODIUM CHLORIDE 0.9% 500 ML 500 ML IV STA (19:29)
--- NOTE | 2023-06-18 20:00 | ED ---
Weakness HPI - General Chief complaint: Fall Stated complaint: Fall Time Seen by Provider: 06/18/23 19:01 Source: patient, EMS, RN notes reviewed, old records reviewed Mode of arrival: EMS Limitations: no limitations - History of Present Illness Initial comments: This is a 87-year-old female to the emergency room for evaluation. Patient presents today for evaluation regards to fall. Patient of fall from standing secondary to dizziness and weakness. She did hit her head with significant laceration. Minimal bleeding from laceration site, son is at bedside concern for urinary tract infection MD Complaint: generalized weakness, lack of energy, difficulty walking -: minutes(s) Location: generalized Quality: tingling Consistency: constant Improves with: none, evening Context: history of similar Associated Symptoms: denies other symptoms - Related Data Home Medications Medication Instructions Recorded Confirmed Aspirin [Adult Low Dose Aspirin EC] 81 mg PO DAILY 10/04/20 06/18/23 Citalopram Hydrobromide 20 mg PO DAILY 10/04/20 06/18/23 [Citalopram HBr] Omeprazole 20 mg PO DAILY 10/04/20 06/18/23 Simvastatin [Zocor] 40 mg PO HS 10/04/20 06/18/23 Carbidopa-Levodopa ER 50-200Mg 1 tab PO Q8HR@0900,1400,1900 01/06/23 06/18/23 [Sinemet CR 50-200 mg] Cholecalciferol [Vitamin D3 (25 25 mcg PO DAILY 01/06/23 06/18/23 Mcg = 1000 Iu)] Ferrous Sulfate [Iron (65 MG 325 mg PO DAILY 01/06/23 06/18/23 Elemental)] Levothyroxine Sodium [Synthroid] 100 mcg PO [id number] 01/06/23 06/18/23 Acetaminophen-Codeine 300-30mg 1 tab PO Q6HR PRN 05/10/23 06/18/23 [Tylenol w/codeine #3] sitaGLIPtin PHOS/metFORMIN HCL 1 tab PO DAILY 05/10/23 06/18/23 [Janumet 50-1,000 mg Tablet] Acetaminophen Tab [Tylenol Tab] 1,000 mg PO Q6H PRN 06/18/23 06/18/23 Calcium Carbonate [Calcium] 600 mg PO DAILY 06/18/23 06/18/23 Gabapentin [Neurontin] 100 mg PO TID 06/18/23 06/18/23 Levothyroxine Sodium [Synthroid] 150 mcg PO MOON 06/18/23 06/18/23 Sulfamethox-Tmp 800-160Mg [Bactrim 1 tab PO BID 06/18/23 06/18/23 DS 800-160 mg] hydroCHLOROthiazide [Hydrodiuril] 25 mg PO DAILY 06/18/23 06/18/23 rOPINIRole HCL [Ropinirole HCl] 0.5 mg PO HS 06/18/23 06/18/23 Allergies Allergy/AdvReac Type Severity Reaction Status Date / Time No Known Allergies Allergy Verified 06/18/23 21:08 Review of Systems ROS Statement: Those systems with pertinent positive or pertinent negative responses have been documented in the HPI. ROS Other: All systems not noted in ROS Statement are negative. Past Medical History Past Medical History: Cancer, Diabetes Mellitus, Musculoskeletal Disorder, Osteoarthritis (OA) Additional Past Medical History / Comment(s): basal cell skin cancer, metastatic melanoma j History of Any Multi-Drug Resistant Organisms: None Reported Past Surgical History: Orthopedic Surgery Additional Past Surgical History / Comment(s): ORIF right hip, ORIF right wrist, ORIF right ankle Past Anesthesia/Blood Transfusion Reactions: No Reported Reaction Past Psychological History: No Psychological Hx Reported Smoking Status: Never smoker Past Alcohol Use History: None Reported Past Drug Use History: None Reported - Past Family History Mother Family Medical History: No Reported History General Exam Limitations: no limitations General appearance: alert, in no apparent distress Head exam: Present: normocephalic, normal inspection. Absent: atraumatic (7 cm head laceration) Eye exam: Present: normal appearance, PERRL, EOMI. Absent: scleral icterus, conjunctival injection, periorbital swelling ENT exam: Present: normal exam, mucous membranes moist Neck exam: Present: normal inspection. Absent: tenderness, meningismus, lymphadenopathy Respiratory exam: Present: normal lung sounds bilaterally. Absent: respiratory distress, wheezes, rales, rhonchi, stridor Cardiovascular Exam: Present: regular rate, normal rhythm, normal heart sounds. Absent: systolic murmur, diastolic murmur, rubs, gallop, clicks GI/Abdominal exam: Present: soft, normal bowel sounds. Absent: distended, tenderness, guarding, rebound, rigid Extremities exam: Present: normal inspection, full ROM, normal capillary refill. Absent: tenderness, pedal edema, joint swelling, calf tenderness Back exam: Present: normal inspection Neurological exam: Present: alert, oriented X3, CN II-XII intact Psychiatric exam: Present: normal affect, normal mood Skin exam: Present: warm, dry, intact, normal color. Absent: rash Course Vital Signs 06/18/23 06/18/23 06/18/23 18:58 22:53 23:56 Temperature 98.1 F Pulse Rate 84 98 71 Respiratory 18 18 16 Rate Blood Pressure 129/73 135/70 132/78 O2 Sat by Pulse 95 98 97 Oximetry - Reevaluation(s) Reevaluation #1: 06/18/23 20:51 Medical records reviewed Reevaluation #2: Patient symptoms are improved Reevaluation #3: Patient informed results questions answered Reevaluation #4: 06/18/23 20:51 Was pt. sent in by a medical professional or institution (, PA, CAD SPECIALIST, urgent care, hospital, or correction...) When possible be specific @ -no Did you speak to anyone other than the patient for history (EMS, parent, family, police, friend...)? What history was obtained from this source @ -no Did you review nursing and triage notes (agree or disagree)? Why? @ -agree Are old charts reviewed (outside hosp., previous admission, EMS record, old EKG, old radiological studies, urgent care reports/EKG's, correction records)? Report findings @ -yes Differential Diagnosis (chest pain, altered mental status, abdominal pain women, abdominal pain men, vaginal bleeding, weakness, fever, dyspnea, syncope, headache, dizziness, GI bleed, back pain, seizure, CVA, palpatations, mental health, musculoskeletal)? @ -prior EKG interpreted by me (3pts min.). @ -yes X-rays interpreted by me (1pt min.). @ -no CT interpreted by me (1pt min.). @ -yes negative for acute disease U/S interpreted by me (1pt. min.). @ -no What testing was considered but not performed or refused? (CT, X-rays, U/S, labs)? Why? @ -none What meds were considered but not given or refused? Why? @ -none Did you discuss the management of the patient with other professionals (professionals i.e. , PA, CAD SPECIALIST, lab, RT, psych nurse, social services aide, staff nurse icu resource team, teacher, sports development officer, rn case manager)? Give summary @ -no Was smoking cessation discussed for >3mins.? @ -no Was critical care preformed (if so, how long)? @ -no Were there social determinants of health that impacted care today? How? (Homelessness, low income, unemployed, alcoholism, drug addiction, transportation, low edu. Level, literacy, decrease access to med. care, snf, rehab)? @ -none Was there de-escalation of care discussed even if they declined (Discuss DNR or withdrawal of care, Hospice)? DNR status @ -no What co-morbidities impacted this encounter? (DM, HTN, Smoking, COPD, CAD, Cancer, CVA, ARF, Chemo, Hep., AIDS, mental health diagnosis, sleep apnea, morbid obesity)? @ -none Was patient admitted / discharged? Hospital course, mention meds given and route, prescriptions, significant lab abnormalities, going to OR and other pertinent info. @ - 87 female to the ER for evaluation of fall with head laceration. Lacerati on is repaired here in the ER and patient is in NAD here. Patient is in no acute distress, can be discharged home Undiagnosed new problem with uncertain prognosis? @ -no Drug Therapy requiring intensive monitoring for toxicity (Heparin, Nitro, Insulin, Cardizem)? @ -no Were any procedures done? @ -yes laceration repair Diagnosis/symptom? @ -Fall, weakness, face laceration Acute, or Chronic, or Acute on Chronic? @ -Acute Uncomplicated (without systemic symptoms) or Complicated (systemic symptoms)? @ -Complicated Side effects of treatment? @ -no Exacerbation, Progression, or Severe Exacerbation? @ -exacerbation Poses a threat to life or bodily function? How? (Chest pain, [place], PR, pneumonia, PE, COPD, DKA, ARF, appy, cholecystitis, CVA, Diverticulitis, Homicidal, Suicidal, threat to staff... and all critical care pts) @ -yes extremes of age EKG Findings - EKG Comments: EKG Findings:: EKG is sinus rhythm rate of 80 ID 173 QRS 86 QTc 420 - EKG Results: EKG: interpreted by ERMD Procedures - Laceration Laceration #1 Consent Obtained: verbal consent Indication: laceration Site: face Size (cm): 7 Description: linear Depth: simple, single layer Type of Sutures: nylon Size of Sutures: 4-0 Technique: simple, interrupted Patient Tolerated Procedure: well Medical Decision Making - Medical Decision Making 87 female to the ER for evaluation of fall with head laceration. Laceration is repaired here in the ER and patient is in NAD here. Patient is in no acute distress, can be discharged home - Lab Data Result diagrams: 06/18/23 20:13 06/18/23 20:13 Lab Results 06/18/23 06/18/23 06/18/23 Range/Units 20:13 20:13 20:13 WBC 8.2 (3.8-10.6) k/uL RBC 3.67 L (3.80-5.40) m/uL Hgb 10.8 L (11.4-16.0) gm/dL Hct 33.1 L (34.0-46.0) % MCV 90.3 (80.0-100.0) fL MCH 29.6 (25.0-35.0) pg MCHC 32.8 (31.0-37.0) g/dL RDW 15.8 H (11.5-15.5) % Plt Count 550 H (150-450) k/uL MPV 6.8 Neutrophils % 84 % Lymphocytes % 7 % Monocytes % 6 % Eosinophils % 1 % Basophils % 0 % Neutrophils # 6.9 (1.3-7.7) k/uL Lymphocytes # 0.5 L (1.0-4.8) k/uL Monocytes # 0.5 (0-1.0) k/uL Eosinophils # 0.1 (0-0.7) k/uL Basophils # 0.0 (0-0.2) k/uL Hypochromasia Slight PT 10.0 (10.0-12.5) sec INR 0.9 (<1.2) APTT 21.9 L (22.0-30.0) sec Sodium 137 (137-145) mmol/L Potassium 4.5 (3.5-5.1) mmol/L Chloride 99 (98-107) mmol/L Carbon Dioxide 27 (22-30) mmol/L Anion Gap 11 mmol/L BUN 28 H (7-17) mg/dL Creatinine 1.28 H (0.52-1.04) mg/dL Est GFR (CKD-EPI)AfAm 44 (>60 ml/min/1.73 sqM) Est GFR (CKD-EPI)NonAf 38 (>60 ml/min/1.73 sqM) Glucose 152 H (74-99) mg/dL Calcium 9.4 (8.4-10.2) mg/dL Phosphorus 4.2 (2.5-4.5) mg/dL Magnesium 2.0 (1.6-2.3) mg/dL Total Bilirubin 0.4 (0.2-1.3) mg/dL AST 17 (14-36) U/L ALT 8 (4-34) U/L Alkaline Phosphatase 162 H (38-126) U/L Troponin I (0.000-0.034) ng/mL Total Protein 6.9 (6.3-8.2) g/dL Albumin 3.9 (3.5-5.0) g/dL Urine Color Urine Appearance (Clear) Urine pH (5.0-8.0) Ur Specific Perryman (1.001-1.035) Urine Protein (Negative) Urine Glucose (UA) (Negative) Urine Ketones (Negative) Urine Blood (Negative) Urine Nitrite (Negative) Urine Bilirubin (Negative) Urine Urobilinogen (<2.0) mg/dL Ur Leukocyte Esterase (Negative) 06/18/23 06/18/23 Range/Units 20:13 21:38 WBC (3.8-10.6) k/uL RBC (3.80-5.40) m/uL Hgb (11.4-16.0) gm/dL Hct (34.0-46.0) % MCV (80.0-100.0) fL MCH (25.0-35.0) pg MCHC (31.0-37.0) g/dL RDW (11.5-15.5) % Plt Count (150-450) k/uL MPV Neutrophils % % Lymphocytes % % Monocytes % % Eosinophils % % Basophils % % Neutrophils # (1.3-7.7) k/uL Lymphocytes # (1.0-4.8) k/uL Monocytes # (0-1.0) k/uL Eosinophils # (0-0.7) k/uL Basophils # (0-0.2) k/uL Hypochromasia PT (10.0-12.5) sec INR (<1.2) APTT (22.0-30.0) sec Sodium (137-145) mmol/L Potassium (3.5-5.1) mmol/L Chloride (98-107) mmol/L Carbon Dioxide (22-30) mmol/L Anion Gap mmol/L BUN (7-17) mg/dL Creatinine (0.52-1.04) mg/dL Est GFR (CKD-EPI)AfAm (>60 ml/min/1.73 sqM) Est GFR (CKD-EPI)NonAf (>60 ml/min/1.73 sqM) Glucose (74-99) mg/dL Calcium (8.4-10.2) mg/dL Phosphorus (2.5-4.5) mg/dL Magnesium (1.6-2.3) mg/dL Total Bilirubin (0.2-1.3) mg/dL AST (14-36) U/L ALT (4-34) U/L Alkaline Phosphatase (38-126) U/L Troponin I <0.012 (0.000-0.034) ng/mL Total Protein (6.3-8.2) g/dL Albumin (3.5-5.0) g/dL Urine Color Yellow Urine Appearance Clear (Clear) Urine pH 6.5 (5.0-8.0) Ur Specific Perryman 1.015 (1.001-1.035) Urine Protein Negative (Negative) Urine Glucose (UA) Negative (Negative) Urine Ketones Negative (Negative) Urine Blood Negative (Negative) Urine Nitrite Negative (Negative) Urine Bilirubin Negative (Negative) Urine Urobilinogen <2.0 (<2.0) mg/dL Ur Leukocyte Esterase Negative (Negative) - EKG Data -: EKG Interpreted by Co - Radiology Data Radiology results: report reviewed (CT brain C-spine is negative for acute d isease), image reviewed Disposition Clinical Impression: Fall, Laceration of head, Occipital scalp laceration, Head injury Disposition: HOME SELF-CARE Condition: Good Instructions (If sedation given, give patient instructions): Laceration (ED), Fall Prevention for Older Adults (ED) Is patient prescribed a controlled substance at d/c from ED?: No Referrals: Ting Vazquez MD [Primary Care Provider] - 1-2 days Time of Disposition: 23:45
[2023-06-18 20:29] LABS: Basophils % (A) 0 %; Eosinophils # (A) 0.1 k/uL (0-0.7); Eosinophils % (A) 1 %; HCT 33.1 % (34.0-46.0); HGB 10.8 gm/dL (11.4-16.0); Hypochromasia Slight; Lymphocytes # (A) 0.5 k/uL (1.0-4.8); Lymphocytes % (A) 7 %; MCH 29.6 pg (25.0-35.0); MCHC 32.8 g/dL (31.0-37.0); MCV 90.3 fL (80.0-100.0); Mean Platelet Volume 6.8; Monocytes # (A) 0.5 k/uL (0-1.0); Monocytes % (A) 6 %; Neutrophils # (A) 6.9 k/uL (1.3-7.7); Neutrophils % (A) 84 %; Platelet Count 550 k/uL (150-450); RBC 3.67 m/uL (3.80-5.40); RDW 15.8 % (11.5-15.5); WBC 8.2 k/uL (3.8-10.6)
[2023-06-18 20:40] LABS: ALT 8 U/L (4-34); AST 17 U/L (14-36); African American GFR (CKD) 44 (>60 ml/min/1.73 sqM); Albumin 3.9 g/dL (3.5-5.0); Alkaline Phosphatase 162 U/L (38-126); Anion Gap 11 mmol/L; Blood Urea Nitrogen 28 mg/dL (7-17); Calcium 9.4 mg/dL (8.4-10.2); Carbon Dioxide 27 mmol/L (22-30); Chloride 99 mmol/L (98-107); Glucose 152 mg/dL (74-99); Non-African American GFR(CKD) 38 (>60 ml/min/1.73 sqM); Phosphorus 4.2 mg/dL (2.5-4.5); Potassium 4.5 mmol/L (3.5-5.1); Sodium 137 mmol/L (137-145); Total Bilirubin 0.4 mg/dL (0.2-1.3); Total Protein 6.9 g/dL (6.3-8.2)
[2023-06-18 21:12] LABS: INR 0.9 (<1.2)
--- NOTE | 2023-06-18 22:08 | CT ---
EXAMINATION TYPE: CT brain cspine wo con CT DLP: 1308.5 mGycm, Automated exposure control for dose reduction was used. DATE OF EXAM: 06/18/2023 9:13 PM COMPARISON: None. 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 Cspine: Axial CT images from the skull base to the inferior aspect of T2 we obtained without intraven ous contrast. Coronal and sagittal reformatted images were also reviewed. FINDINGS: Brain: Extra-axial spaces: No abnormal extra-axial fluid collections. Ventricular system: Appear dilated in proportion to the degree of cerebral atrophy. Cavum septum aimee ucidum noted. Cerebral parenchyma: No increased attenuation to suggest acute intraparenchymal hemorrhage. The gra y-white matter interface appears maintained. Moderate to severe generalized brain atrophy. Scattere d hypoattenuating areas are seen within the cerebral white matter, nonspecific but most often seen wi th chronic microvascular ischemic changes; moderate in degree. Faint mineralization of the bilateral basal ganglia. Basilar cisterns are preserved. No evidence of herniation. Cerebellum: No acute abnormality. Mass effect: No evidence of mass effect or midline shift. Intracranial vasculature: Atherosclerotic calcifications of the larger arteries near the skull base. Soft tissues: Small posterior scalp hematoma towards the vertex with overlying skin radha. A few bu bbles of soft tissue gas inferior to this. Visualized orbits: Orbital contents appear grossly intact. Calvarium/osseous structures: No evidence of calvarial fracture. Bones appear somewhat demineralized. Paranasal sinuses and mastoid air cells: Clear MRI is more sensitive for detecting acute processes such as infarct, and may be considered if clinica lly warranted. Cervical spine: Fracture: None seen. Osseous structures, spinal canal/neural foramina: Bones appear somewhat demineralized. No destructive lesion is seen. There is generally mild multilevel degenerative disc disease with mostly anterior ma rginal osteophytes. There is also moderate facet arthropathy throughout, greatest from C2 through C6. Cervical lordosis is preserved. There is some exaggeration of the visualized thoracic kyphosis, coul d be due at least in part to chronic degenerative changes including mild anterior wedging of T2 with some sclerosis along the inferior endplate. Moderately severe degenerative changes of the anterior C1-C2 articulation and bilateral lateral artic ulations. Small disc osteophyte complexes as well as hypertrophic spurring related to the facet disea se causes mild canal stenosis at multiple levels, as well as moderate bilateral neural foraminal sten oses mostly involving C3-C4 and C4-C5. Bony canal appears patent. Vertebral alignment: No traumatic malalignment. Neck soft tissues: No acute finding.. Peripherally densely calcified nodules in the left thyroid lobe , and a coarse calcification on the right. Right lobe appears asymmetrically larger, and there is sug gestion of a vague hypodense nodule in the mid right lobe which could measure round 1.4 cm. Atheroscl erotic calcifications along the aortic arch. Other: Lung apices show no acute infiltrate or pneumothorax. IMPRESSION: CT head: 1. No CT evidence of an acute intracranial abnormality. 2. Moderate to severe atrophy and chronic microvascular ischemic white matter changes. CT cervical spine: 1. No evidence of acute cervical spine fracture or traumatic malalignment. 2. Moderate cervical spondylosis. 3. Thyroid findings could be further evaluated/followed up with outpatient thyroid function tests an d possibly ultrasound.
[2023-06-18 22:13] LABS: Appearance,Urine Clear (Clear); Color,Urine Yellow; Specific Gravity,Urine 1.015 (1.001-1.035)
[2023-06-18 22:14] LABS: Bilirubin,Urine Negative (Negative); Blood,Urine Negative (Negative); Glucose,Urine (UA) Negative (Negative); Ketones,Urine Negative (Negative); Leukocyte Esterase,Urine Negative (Negative); Nitrite,Urine Negative (Negative); PH, Urine 6.5 (5.0-8.0); Protein,Urine Negative (Negative); Urobilinogen,Urine <2.0 mg/dL (<2.0)
[2023-06-18 22:39] LABS: Partial Thromboplastin Time 21.9 sec (22.0-30.0)
[2023-06-18] MEDS ORDERED: MORPHINE SULFATE 4 MG/ML SYRINGE IVP STA (23:49)
[2023-06-19 00:26] VITALS: BP 132/78; PULSE 71; RESP 16
== END 2023-06-18 23:57 | disposition home or self-care (01) ==
LOC: EC 18:50
DX: S01.01XA Laceration without foreign body of scalp, initial encounter (principal); E11.9 Type 2 diabetes mellitus without complications; Z79.82 Long term (current) use of aspirin; Z79.84 Long term (current) use of oral hypoglycemic drugs; W22.8XXA Striking against or struck by other objects, initial encounter
CPT/HCPCS: 12002 ×2; 99285 ×2; 96374 ×2; 96361 ×5; 36415; 93005; 80053; 83735; 84100; 84484; 85025; 85610; 85730; 81003; 72125; 70450; J2270

== ENCOUNTER → 2023-08-31 | Outpatient (CLI) | payer MEDICARE ==
--- NOTE | 2023-09-04 11:28 | PE ---
EXAMINATION TYPE: PET CT fusion skull to thigh DATE OF EXAM: 08/31/2023 COMPARISON: No recent pertinent CT. Prior PET/CT: 04/11/2023 HISTORY: Melanoma TECHNIQUE: Following the intravenous administration of 7.25 mCi of F-18 FDG, whole body images are p erformed from the skull base to the midthigh. Images are reviewed on the computer in the coronal, ax ial, and sagittal planes. Reconstructed rotating images are created on independent workstation and r eviewed on the computer. A localization and attenuation correction CT is performed in conjunction w ith the PET scan. Distal Legs were not included in this study. Imaging does however extend below the level of the knees. DLP: 830.26 mGycm SCAN: Subsequent Blood glucose: 146 mg/dL Average Mediastinum SUV: 1.8 Average Liver SUV: 2.43 FINDINGS: Head: No abnormal uptake. MRI is more sensitive for early melanoma metastasis. NECK: No abnormal uptake THORAX: There is intense activity at the level of the thyroid adjacent to the trachea. Example image 78, SUV 10.2 ABDOMEN: No abnormal uptake PELVIS: There is intense uptake through a large left inguinal region hyperactive lesion extending lat erally compatible with neoplasm. This has an SUV of 19.75, image 231 OSSEOUS STRUCTURES: There is some intense uptake in the left posterior lateral rib, image 117, series 3.07. This could be posttraumatic in nature. Healing fracture is evident. LOCALIZATION CT: There is a right hip prosthesis with beam hardening artifact causing some limitation .. There is a small to moderate size hiatal hernia present. COMPARISON: The large masslike area in the left inguinal region has flattened the interval. Correlate for prior surgical intervention. Relative uptake within the thyroid appears increased. Direct compar david with different technical factors cannot be performed. IMPRESSION: 1. Cysts and increased activity within the left inguinal mass. The mass size is smaller. Correlate fo r prior surgical intervention 2. Increased uptake within the thyroid lobes. Consider evaluation with ultrasound. 3. No suspicious new foci of radiotracer to suggest metastatic disease. 4. There is some focal uptake within a solitary left rib which appears to have some posttraumatic flavia nge. Metastasis is not entirely excluded at this time but considered unlikely.
== END | disposition home or self-care (01) ==
LOC: RADPETMAIN 12:18
PROVIDERS: ATTEND Internal Medicine
DX: C43.72 Malignant melanoma of left lower limb, including hip (principal); R19.09 Other intra-abdominal and pelvic swelling, mass and lump
CPT/HCPCS: 78815; A9552

== ENCOUNTER 2023-10-25 17:44 | Emergency (ER) | payer MEDICARE ==
--- NOTE | 2023-10-25 18:28 | ED ---
Extremity Problem HPI - General Source: patient, family, RN notes reviewed Mode of arrival: wheelchair Limitations: no limitations <Ludivina Madrid - Last Filed: 10/25/23 18:26> <Jonathan Rausch - Last Filed: 11/05/23 01:56> - General Chief complaint: Extremity Problem,Nontraumatic Stated complaint: Swollen legs/bloated stomach Time Seen by Provider: 10/25/23 18:00 - History of Present Illness Initial comments: Gladys garcia is an 88-year-old female presents emergency department chief complaint of lower extremity edema and shortness of breath. Patient is on once a month IV therapy for melanoma on her abdomen. Patient states she has gained about 30 pounds over the last 6 months. Denies history of CVA, OH, PE, DVT. Not on blood thinners. (Ludivina Madrid) - Related Data Home Medications Medication Instructions Recorded Confirmed Aspirin [Adult Low Dose Aspirin EC] 81 mg PO DAILY 10/04/20 06/18/23 Citalopram Hydrobromide 20 mg PO DAILY 10/04/20 06/18/23 [Citalopram HBr] Omeprazole 20 mg PO DAILY 10/04/20 06/18/23 Simvastatin [Zocor] 40 mg PO HS 10/04/20 06/18/23 Carbidopa-Levodopa ER 50-200Mg 1 tab PO Q8HR@0900,1400,1900 01/06/23 06/18/23 [Sinemet CR 50-200 mg] Cholecalciferol [Vitamin D3 (25 25 mcg PO DAILY 01/06/23 06/18/23 Mcg = 1000 Iu)] Ferrous Sulfate [Iron (65 MG 325 mg PO DAILY 01/06/23 06/18/23 Elemental)] Levothyroxine Sodium [Synthroid] 100 mcg PO MOTUWETHFRSA 01/06/23 06/18/23 Acetaminophen-Codeine 300-30mg 1 tab PO Q6HR PRN 05/10/23 06/18/23 [Tylenol w/codeine #3] sitaGLIPtin PHOS/metFORMIN HCL 1 tab PO DAILY 05/10/23 06/18/23 [Janumet 50-1,000 mg Tablet] Acetaminophen Tab [Tylenol Tab] 1,000 mg PO Q6H PRN 06/18/23 06/18/23 Calcium Carbonate [Calcium] 600 mg PO DAILY 06/18/23 06/18/23 Gabapentin [Neurontin] 100 mg PO TID 06/18/23 06/18/23 Levothyroxine Sodium [Synthroid] 150 mcg PO MOON 06/18/23 06/18/23 Sulfamethox-Tmp 800-160Mg [Bactrim 1 tab PO BID 06/18/23 06/18/23 DS 800-160 mg] hydroCHLOROthiazide [Hydrodiuril] 25 mg PO DAILY 06/18/23 06/18/23 rOPINIRole HCL [Ropinirole HCl] 0.5 mg PO HS 06/18/23 06/18/23 Previous Rx's Medication Instructions Recorded Furosemide [Lasix] 20 mg PO DAILY #7 tab 10/25/23 Allergies Allergy/AdvReac Type Severity Reaction Status Date / Time No Known Allergies Allergy Verified 06/18/23 21:08 Review of Systems ROS Other: All systems not noted in ROS Statement are negative. <Ludivina Madrid - Last Filed: 10/25/23 18:26> ROS Other: All systems not noted in ROS Statement are negative. <Jonathan Rausch - Last Filed: 11/05/23 01:56> ROS Statement: Those systems with pertinent positive or pertinent negative responses have been documented in the HPI. Past Medical History Past Medical History: Cancer, Diabetes Mellitus, Musculoskeletal Disorder, Osteoarthritis (OA) Additional Past Medical History / Comment(s): basal cell skin cancer, metastatic melanoma j History of Any Multi-Drug Resistant Organisms: None Reported Past Surgical History: Orthopedic Surgery Additional Past Surgical History / Comment(s): ORIF right hip, ORIF right wrist, ORIF right ankle Past Anesthesia/Blood Transfusion Reactions: No Reported Reaction Past Psychological History: No Psychological Hx Reported Smoking Status: Never smoker Past Alcohol Use History: None Reported Past Drug Use History: None Reported - Past Family History Mother Family Medical History: No Reported History <Ludivina Madrid - Last Filed: 10/25/23 18:26> General Exam Limitations: no limitations <Ludivina Madrid - Last Filed: 10/25/23 18:26> Limitations: no limitations General appearance: alert, in no apparent distress Head exam: Present: atraumatic, normocephalic Eye exam: Present: normal appearance. Absent: scleral icterus, conjunctival injection ENT exam: Present: normal oropharynx Neck exam: Present: normal inspection Respiratory exam: Present: normal lung sounds bilaterally. Absent: respiratory distress, wheezes, rales, rhonchi, stridor, accessory muscle use Cardiovascular Exam: Present: regular rate, normal rhythm, normal heart sounds. Absent: systolic murmur, diastolic murmur, rubs, gallop GI/Abdominal exam: Present: soft. Absent: distended, tenderness, guarding, rebound, rigid, mass Extremities exam: Present: normal inspection, full ROM, normal capillary refill, pedal edema. Absent: tenderness, calf tenderness Back exam: Present: normal inspection Neurological exam: Present: alert Skin exam: Present: warm, dry, intact, normal color. Absent: rash <Jonathan Rausch - Last Filed: 11/05/23 01:56> - General Exam Comments Initial Comments: Visual Physical Exam Vital signs reviewed General: Well-appearing, nontoxic, no acute distress. Head: Normocephalic, atraumatic Eyes: PERRLA, EOMI ENT: Airway patent Chest: Nonlabored breathing Skin: No visual rash, normal skin tone Neuro: Alert and oriented 3 Musculoskeletal: No gross abnormalities (Ludivina Madrid) Course Vital Signs 10/25/23 10/25/23 18:02 21:27 Temperature 98.0 F Pulse Rate 82 73 Respiratory 18 14 Rate Blood Pressure 120/72 125/65 O2 Sat by Pulse 98 95 Oximetry Medical Decision Making <Ludivina Madrid - Last Filed: 10/25/23 18:26> - Lab Data Result diagrams: 10/25/23 19:23 10/25/23 19:23 <Jonathan Rausch - Last Filed: 11/05/23 01:56> - Medical Decision Making I completed the quick note portion of this chart signed Ludivina Madrid PA-C (Ludivina Madrid) The patient had chest x-ray that I interpreted as negative for acute infiltrate, pneumothorax, congestive heart failure The patient had duplex Doppler of the extremity which I interpreted as negative for acute DVT Was pt. sent in by a medical professional or institution (DYLAN Hernandez, BIOFUELS OPERATIONS MANAGER, urgent care, hospital, or prison...) When possible be specific @ -[No] Did you speak to anyone other than the patient for history (EMS, parent, family, police, friend...)? What history was obtained from this source @ -[No] Did you review nursing and triage notes (agree or disagree)? Why? @ -[I reviewed and agree with nursing and triage notes] Were old charts reviewed (outside hosp., previous admission, EMS record, old EKG, old radiological studies, urgent care reports/EKG's, prison records)? Report findings @ -[No old charts were reviewed] Differential Diagnosis (chest pain, altered mental status, abdominal pain women, abdominal pain men, vaginal bleeding, weakness, fever, dyspnea, syncope, headache, dizziness, GI bleed, back pain, seizure, CVA, palpatations, mental health, musculoskeletal)? @ -[Differential Musculoskeletal Muscular strain, contusion, ligament sprain, fracture, arthritis, septic arthritis, bursitis, cellulitis, muscle spasm, nerve compression, DVT, arterial occlusion, herpes zoster, electrolyte abnormality, tumor.... This is not meant to be in all inclusive list EKG interpreted by me (3pts min.). @ -[As above] X-rays interpreted by me (1pt min.). @ -[I interpreted as above CT interpreted by me (1pt min.). @ -[None done] U/S interpreted by me (1pt. min.). @ -[I interpreted as above What testing was considered but not performed or refused? (CT, X-rays, U/S, labs)? Why? @ -[None] What meds were considered but not given or refused? Why? @ -[None] Did you discuss the management of the patient with other professionals (professionals i.e. , PA, BIOFUELS OPERATIONS MANAGER, lab, RT, psych nurse, director social, beader tender, teacher, bank operations officer, rehabilitation case coordinator)? Give summary @ -[No] Was smoking cessation discussed for >3mins.? @ -[No] Was critical care preformed (if so, how long)? @ -[No] Were there social determinants of health that impacted care today? How? (Homelessness, low income, unemployed, alcoholism, drug addiction, transportation, low edu. Level, literacy, decrease access to med. care, senior living, rehab)? @ -[No] Was there de-escalation of care discussed even if they declined (Discuss DNR or withdrawal of care, Hospice)? DNR status @ -[No] What co-morbidities impacted this encounter? (DM, HTN, Smoking, COPD, CAD, Cancer, CVA, ARF, Chemo, Hep., AIDS, mental health diagnosis, sleep apnea, morbid obesity)? @ -[None] Was patient admitted / discharged? Hospital course, mention meds given and route, prescriptions, significant lab abnormalities, going to OR and other pertinent info. @ -[Patient is 88-year-old woman presenting with complaint of leg edema. The patient did have duplex Doppler that is negative for DVT. Exam and studies do not suggest cellulitis at this point. The patient to have short course of Lasix and close follow-up. Undiagnosed new problem with uncertain prognosis? @ -[No] Drug Therapy requiring intensive monitoring for toxicity (Heparin, Nitro, Insulin, Cardizem)? @ -[No] Were any procedures done? @ -[No] Diagnosis/symptom? @ -[Acute leg edema Acute, or Chronic, or Acute on Chronic? @ -[Acute Uncomplicated (without systemic symptoms) or Complicated (systemic symptoms)? @ -[Uncomplicated Side effects of treatment? @ -[No] Exacerbation, Progression, or Severe Exacerbation? @ -[No] Poses a threat to life or bodily function? How? (Chest pain, [place], [place], pneumonia, PE, COPD, DKA, ARF, appy, cholecystitis, CVA, Diverticulitis, Homicidal, Suicidal, threat to staff... and all critical care pts) @ -[No] (Jonathan Rausch) - Lab Data Lab Results 10/25/23 10/25/23 10/25/23 Range/Units 19:23 19:23 19:23 WBC 5.6 (3.8-10.6) k/uL RBC 3.52 L (3.80-5.40) m/uL Hgb 11.1 L (11.4-16.0) gm/dL Hct 33.7 L (34.0-46.0) % MCV 95.8 (80.0-100.0) fL MCH 31.7 (25.0-35.0) pg MCHC 33.1 (31.0-37.0) g/dL RDW 14.5 (11.5-15.5) % Plt Count 485 H (150-450) k/uL MPV 6.8 Neutrophils % 76 % Lymphocytes % 11 % Monocytes % 8 % Eosinophils % 3 % Basophils % 0 % Neutrophils # 4.3 (1.3-7.7) k/uL Lymphocytes # 0.6 L (1.0-4.8) k/uL Monocytes # 0.4 (0-1.0) k/uL Eosinophils # 0.2 (0-0.7) k/uL Basophils # 0.0 (0-0.2) k/uL Sodium 137 (137-145) mmol/L Potassium 3.9 (3.5-5.1) mmol/L Chloride 103 (98-107) mmol/L Carbon Dioxide 28 (22-30) mmol/L Anion Gap 6 mmol/L BUN 19 H (7-17) mg/dL Creatinine 0.76 (0.52-1.04) mg/dL Est GFR (CKD-EPI)AfAm 82 (>60 ml/min/1.73 sqM) Est GFR (CKD-EPI)NonAf 71 (>60 ml/min/1.73 sqM) Glucose 148 H (74-99) mg/dL Calcium 9.3 (8.4-10.2) mg/dL Magnesium 1.7 (1.6-2.3) mg/dL Total Bilirubin 0.3 (0.2-1.3) mg/dL AST 18 (14-36) U/L ALT 10 (4-34) U/L Alkaline Phosphatase 66 (38-126) U/L Troponin I <0.012 (0.000-0.034) ng/mL NT-Pro-B Natriuret Pep 315 pg/mL Total Protein 6.5 (6.3-8.2) g/dL Albumin 3.6 (3.5-5.0) g/dL Disposition <Ludivina Madrid - Last Filed: 10/25/23 18:26> Is patient prescribed a controlled substance at d/c from ED?: No <Jonathan Rausch - Last Filed: 11/05/23 01:56> Clinical Impression: Leg edema Disposition: HOME SELF-CARE Condition: Fair Instructions (If sedation given, give patient instructions): Leg Edema (ED) Prescriptions: Furosemide [Lasix] 20 mg PO DAILY #7 tab Referrals: Ting Vazquez MD [Primary Care Provider] - 1-2 days Barbara Licona MD [STAFF PHYSICIAN] - 1-2 days
[2023-10-25 18:34] VITALS: TEMP 98
--- NOTE | 2023-10-25 19:03 | XR ---
EXAMINATION TYPE: XR chest 2V DATE OF EXAM: 10/25/2023 COMPARISON: 06/02/2023 HISTORY: Shortness of breath and lower extremity swelling TECHNIQUE: Frontal and lateral views of the chest are obtained. FINDINGS: The lungs are clear. Heart and pulmonary vasculature are normal. There is no pleural effusion or pneumothorax. There are multiple healed left rib fractures. There are chronic rotator cuff tears of both shoulders. IMPRESSION: 1. No acute cardiopulmonary disease. 2. Chronic rotator cuff tears of both shoulders. 3. Multiple healed/remote left rib fractures.
[2023-10-25 19:47] LABS: Basophils % (A) 0 %; Eosinophils # (A) 0.2 k/uL (0-0.7); Eosinophils % (A) 3 %; HCT 33.7 % (34.0-46.0); HGB 11.1 gm/dL (11.4-16.0); Lymphocytes # (A) 0.6 k/uL (1.0-4.8); Lymphocytes % (A) 11 %; MCH 31.7 pg (25.0-35.0); MCHC 33.1 g/dL (31.0-37.0); MCV 95.8 fL (80.0-100.0); Mean Platelet Volume 6.8; Monocytes # (A) 0.4 k/uL (0-1.0); Monocytes % (A) 8 %; Neutrophils # (A) 4.3 k/uL (1.3-7.7); Neutrophils % (A) 76 %; Platelet Count 485 k/uL (150-450); RBC 3.52 m/uL (3.80-5.40); RDW 14.5 % (11.5-15.5); WBC 5.6 k/uL (3.8-10.6)
--- NOTE | 2023-10-25 20:09 | US ---
EXAMINATION TYPE: US venous doppler duplex LE LT DATE OF EXAM: 10/25/2023 7:58 PM COMPARISON: NONE CLINICAL INDICATION: Female, 88 years old with history of left leg swelling; known melanoma on left t high, bandage obscured groin view partially, no h/o dvt SIDE PERFORMED: Left TECHNIQUE: The lower extremity deep venous system is examined utilizing real time linear array sonog iveth with graded compression, doppler sonography and color-flow sonography. VESSELS IMAGED: Common Femoral Vein Deep Femoral Vein Greater Saphenous Vein * Femoral Vein Popliteal Vein Small Saphenous Vein * Proximal Calf Veins (* superficial vessels) Difficult to image due to edema and lack of patient's mobility Left Leg: Negative for DVT 5.0cm simple appearing fluid collection anterior pop fossa, probable Ba ker's cyst The deep venous system of the left lower extremity from the common femoral vein to the proximal calf veins is patent and compressible with augmentable flow in normal waveforms. IMPRESSION: 1. No evidence of DVT from the left common femoral vein to the proximal calf veins. 2. Small Culver's cyst.
[2023-10-25 20:33] LABS: ALT 10 U/L (4-34); AST 18 U/L (14-36); African American GFR (CKD) 82 (>60 ml/min/1.73 sqM); Albumin 3.6 g/dL (3.5-5.0); Alkaline Phosphatase 66 U/L (38-126); Anion Gap 6 mmol/L; Blood Urea Nitrogen 19 mg/dL (7-17); Calcium 9.3 mg/dL (8.4-10.2); Carbon Dioxide 28 mmol/L (22-30); Chloride 103 mmol/L (98-107); Glucose 148 mg/dL (74-99); Magnesium 1.7 mg/dL (1.6-2.3); Non-African American GFR(CKD) 71 (>60 ml/min/1.73 sqM); Potassium 3.9 mmol/L (3.5-5.1); Sodium 137 mmol/L (137-145); Total Bilirubin 0.3 mg/dL (0.2-1.3); Total Protein 6.5 g/dL (6.3-8.2)
[2023-10-25 20:40] LABS: NT-Pro-B-Type Natriuretic Pept 315 pg/mL
[2023-10-25 21:52] VITALS: BP 125/65; PULSE 73; RESP 14
[2023-10-25] MEDS: FUROSEMIDE 10 MG/ML 4 ML VIAL IV STA (22:02)
[2023-10-25] MEDS: MORPHINE SULFATE 4 MG/ML SYRINGE IV STA (22:03)
== END 2023-10-25 22:18 | disposition home or self-care (01) ==
LOC: EC 17:44
DX: R60.0 Localized edema (principal)
CPT/HCPCS: 36415; 93005; 83880; 80053; 83735; 84484; 85025; 71046; 93971; 99284; 96374; 96375; J2270; J1940

== ENCOUNTER → 2023-12-20 | Outpatient (CLI) | payer MEDICARE ==
--- NOTE | 2023-12-30 10:16 | PE ---
EXAMINATION TYPE: PET CT fusion skull to thigh DATE OF EXAM: 12/20/2023 COMPARISON: No recent pertinent CT. Prior PET/CT: 08/31/2023 HISTORY: Melanoma TECHNIQUE: Following the intravenous administration of 9.3 mCi of F-18 FDG, whole body images are pe rformed from the skull base to the proximal calf. Images are reviewed on the computer in the coronal , axial, and sagittal planes. Reconstructed rotating images are created on independent workstation a nd reviewed on the computer. A localization and attenuation correction CT is performed in conjuncti on with the PET scan. DLP: 932.33 mGycm SCAN: Subsequent Blood glucose: 157 mg/dL Average Mediastinum SUV: 1.82 Average Liver SUV: 2.51 FINDINGS: NECK: There is some intense uptake which appears to lie within the C1 vertebral body just left of th e dens. If there is misregistration this could be within the prevertebral space. There is uptake with in the thyroid lobes. Sample SUV 7.99 right lobe thyroid. 5.63 left lobe thyroid. Image 85 THORAX: No abnormal uptake ABDOMEN: No abnormal uptake PELVIS: There is intense uptake within the left inguinal region. SUV 29.89 Postsurgical changes are e vident. OSSEOUS STRUCTURES: There may be some subtle uptake within the posterior left medial iliac wing, imag e 203, SUV 4.23. LOCALIZATION CT: There appears to be wound of the left inguinal region. Soft tissue swelling is prese nt through the proximal thigh COMPARISON: Uptake within the left inguinal region was present previously with similar uptake. Uptake within the left iliac wing not previously identified. Increased uptake on the current examination in the expected C1 region may be present. IMPRESSION: 1. Intense uptake within the left inguinal region. This was present previously. There may be some inc reasing soft tissue swelling over the left thigh. 2. Two possible areas of osseous metastasis, C1 and left iliac wing, discussed above.
== END | disposition home or self-care (01) ==
LOC: RADPETMAIN 13:14
PROVIDERS: ATTEND Internal Medicine
DX: C43.72 Malignant melanoma of left lower limb, including hip (principal)
CPT/HCPCS: 78815; A9552

== ENCOUNTER 2023-12-28 06:32 | Observation (INO) | payer MEDICARE ==
--- NOTE | 2023-12-28 07:08 | ED ---
General Adult HPI - General Chief complaint: Extremity Problem,Nontraumatic Stated complaint: L arm swelling Time Seen by Provider: 12/28/23 06:37 Source: patient, EMS, RN notes reviewed Mode of arrival: EMS Limitations: no limitations - History of Present Illness Initial comments: 88-year-old female presents emergency department with chief complaint of swelling. Patient states she was at her PCPs office yesterday in which she had leg swelling and now she has mild arm swelling. Patient states she was sent for venous Doppler of her lower extremities yesterday she does not know the results. Patient states that she noticed that she has difficulty walking because her legs Giving out and that she was weak. 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 Patient states she is followed by wound center for her wound on her side. - Related Data Home Medications Medication Instructions Recorded Confirmed Aspirin [Adult Low Dose Aspirin EC] 81 mg PO DAILY 10/04/20 06/18/23 Citalopram Hydrobromide 20 mg PO DAILY 10/04/20 06/18/23 [Citalopram HBr] Omeprazole 20 mg PO DAILY 10/04/20 06/18/23 Simvastatin [Zocor] 40 mg PO HS 10/04/20 06/18/23 Carbidopa-Levodopa ER 50-200Mg 1 tab PO Q8HR@0900,1400,1900 01/06/23 06/18/23 [Sinemet CR 50-200 mg] Cholecalciferol [Vitamin D3 (25 25 mcg PO DAILY 01/06/23 06/18/23 Mcg = 1000 Iu)] Ferrous Sulfate [Iron (65 MG 325 mg PO DAILY 01/06/23 06/18/23 Elemental)] Levothyroxine Sodium [Synthroid] 100 mcg PO MOTUWETHFRSA 01/06/23 06/18/23 Acetaminophen-Codeine 300-30mg 1 tab PO Q6HR PRN 05/10/23 06/18/23 [Tylenol w/codeine #3] sitaGLIPtin PHOS/metFORMIN HCL 1 tab PO DAILY 05/10/23 06/18/23 [Janumet 50-1,000 mg Tablet] Acetaminophen Tab [Tylenol Tab] 1,000 mg PO Q6H PRN 06/18/23 06/18/23 Calcium Carbonate [Calcium] 600 mg PO DAILY 06/18/23 06/18/23 Gabapentin [Neurontin] 100 mg PO TID 06/18/23 06/18/23 Levothyroxine Sodium [Synthroid] 150 mcg PO MOON 06/18/23 06/18/23 Sulfamethox-Tmp 800-160Mg [Bactrim 1 tab PO BID 06/18/23 06/18/23 DS 800-160 mg] hydroCHLOROthiazide [Hydrodiuril] 25 mg PO DAILY 06/18/23 06/18/23 rOPINIRole HCL [Ropinirole HCl] 0.5 mg PO HS 06/18/23 06/18/23 Previous Rx's Medication Instructions Recorded Furosemide [Lasix] 20 mg PO DAILY #7 tab 10/25/23 Allergies Allergy/AdvReac Type Severity Reaction Status Date / Time No Known Allergies Allergy Verified 12/28/23 12:01 Review of Systems ROS Statement: Those systems with pertinent positive or pertinent negative responses have been documented in the HPI. ROS Other: All systems not noted in ROS Statement are negative. Past Medical History Past Medical History: Cancer, Diabetes Mellitus, Musculoskeletal Disorder, Osteoarthritis (OA) Additional Past Medical History / Comment(s): basal cell skin cancer, metastatic melanoma j History of Any Multi-Drug Resistant Organisms: None Reported Past Surgical History: Orthopedic Surgery Additional Past Surgical History / Comment(s): ORIF right hip, ORIF right wrist, ORIF right ankle Past Anesthesia/Blood Transfusion Reactions: No Reported Reaction Past Psychological History: No Psychological Hx Reported Smoking Status: Never smoker Past Alcohol Use History: None Reported Past Drug Use History: None Reported - Past Family History Mother Family Medical History: No Reported History General Exam Limitations: no limitations General appearance: alert, in no apparent distress Head exam: Present: atraumatic, normocephalic, normal inspection Eye exam: Present: normal appearance, PERRL, EOMI. Absent: scleral icterus, conjunctival injection, periorbital swelling ENT exam: Present: normal exam, mucous membranes moist Neck exam: Present: normal inspection, full ROM. Absent: tenderness, meningismus, lymphadenopathy Respiratory exam: Present: normal lung sounds bilaterally. Absent: respiratory distress, wheezes, rales, rhonchi, stridor Cardiovascular Exam: Present: regular rate, normal rhythm, normal heart sounds. Absent: systolic murmur, diastolic murmur, rubs, gallop, clicks Extremities exam: Present: other (Lower extremity swelling noted bilaterally mild pitting edema, minimal erythema upper extremities minimal swelling) Neurological exam: Present: alert, oriented X3 Course Vital Signs 12/28/23 12/28/23 06:37 10:00 Temperature 97.9 F Pulse Rate 80 98 Respiratory 18 18 Rate Blood Pressure 139/74 130/68 O2 Sat by Pulse 95 95 Oximetry Medical Decision Making - Medical Decision Making Was pt. sent in by a medical professional or institution (DYLAN Hernandez, SOCIAL SECURITY ASSESSOR, urgent care, hospital, or assisted...) When possible be specific @ -No Did you speak to anyone other than the patient for history (EMS, parent, family, police, friend...)? What history was obtained from this source @ -No Did you review nursing and triage notes (agree or disagree)? Why? @ -I reviewed and agree with nursing and triage notes Were old charts reviewed (outside hosp., previous admission, EMS record, old EKG, old radiological studies, urgent care reports/EKG's, assisted records)? Report findings @ -No old charts were reviewed Differential Diagnosis (chest pain, altered mental status, abdominal pain women, abdominal pain men, vaginal bleeding, weakness, fever, dyspnea, syncope, headache, dizziness, GI bleed, back pain, seizure, CVA, palpatations, mental health, musculoskeletal)? @ -Differential Weakness: Hypoglycemia, shock, sepsis, hyponatremia, anemia, infection, [place], ETOH, adverse medicine reaction, overdose, stroke, this is not meant to be an all-inclusive list. EKG interpreted by me (3pts min.). @ -None X-rays interpreted by me (1pt min.). @ -None done CT interpreted by me (1pt min.). @ -None done U/S interpreted by me (1pt. min.). @ -None done What testing was considered but not performed or refused? (CT, X-rays, U/S, labs)? Why? @ -None What meds were considered but not given or refused? Why? @ -None Did you discuss the management of the patient with other professionals (professionals i.e. DYLAN Hernandez, SOCIAL SECURITY ASSESSOR, lab, RT, psych nurse, pediatric social worker, dispatcher automobile rental, teacher, eeo officer, immigration case worker)? Give summary @Betzaida with [facility] for admission Was smoking cessation discussed for >3mins.? @ -No Was critical care preformed (if so, how long)? @ -No Were there social determinants of health that impacted care today? How? (Homelessness, low income, unemployed, alcoholism, drug addiction, transportation, low edu. Level, literacy, decrease access to med. care, usp, rehab)? @ -No Was there de-escalation of care discussed even if they declined (Discuss DNR or withdrawal of care, Hospice)? DNR status @ -No What co-morbidities impacted this encounter? (DM, HTN, Smoking, COPD, CAD, Cancer, CVA, ARF, Chemo, Hep., AIDS, mental health diagnosis, sleep apnea, morbid obesity)? @ -Melanoma Was patient admitted / discharged? Hospital course, mention meds given and route, prescriptions, significant lab abnormalities, going to OR and other pertinent info. @ -Admitted patient presented for increasing weakness. Patient does have anemia 8.8 which is new for patient. Patient does receive monthly chemotherapy for melanoma she had increased weakness difficulty ambulating will be admitted for possible rehab Undiagnosed new problem with uncertain prognosis? @ -No Drug Therapy requiring intensive monitoring for toxicity (Heparin, Nitro, Insulin, Cardizem)? @ -No Were any procedures done? @ -No Diagnosis/symptom? @ -Weakness melanoma, anemia Acute, or Chronic, or Acute on Chronic? @ -Acute Uncomplicated (without systemic symptoms) or Complicated (systemic symptoms)? @ -Complicated Side effects of treatment? @ -No Exacerbation, Progression, or Severe Exacerbation? @ -No Poses a threat to life or bodily function? How? (Chest pain, [place], [place], pneumonia, PE, COPD, DKA, ARF, appy, cholecystitis, CVA, Diverticulitis, Homicidal, Suicidal, threat to staff... and all critical care pts) @ -yes Cancer - Lab Data Result diagrams: 12/28/23 07:09 12/28/23 07:09 Lab Results 12/28/23 12/28/23 12/28/23 Range/Units 07:09 07:09 07:09 WBC 6.8 (3.8-10.6) k/uL RBC 3.06 L (3.80-5.40) m/uL Hgb 8.8 L D (11.4-16.0) gm/dL Hct 28.9 L (34.0-46.0) % MCV 94.5 (80.0-100.0) fL MCH 28.8 (25.0-35.0) pg MCHC 30.4 L (31.0-37.0) g/dL RDW 14.5 (11.5-15.5) % Plt Count 554 H (150-450) k/uL MPV 7.3 Neutrophils % 81 % Lymphocytes % 7 % Monocytes % 7 % Eosinophils % 2 % Basophils % 0 % Neutrophils # 5.5 (1.3-7.7) k/uL Lymphocytes # 0.5 L (1.0-4.8) k/uL Monocytes # 0.5 (0-1.0) k/uL Eosinophils # 0.2 (0-0.7) k/uL Basophils # 0.0 (0-0.2) k/uL Hypochromasia Slight PT 10.3 (10.0-12.5) sec INR 0.9 (<1.2) APTT 21.7 L (22.0-30.0) sec Sodium 136 L (137-145) mmol/L Potassium 4.2 (3.5-5.1) mmol/L Chloride 103 (98-107) mmol/L Carbon Dioxide 32 H (22-30) mmol/L Anion Gap 1 mmol/L BUN 20 H (7-17) mg/dL Creatinine 0.81 (0.52-1.04) mg/dL Est GFR (CKD-EPI)AfAm 76 (>60 ml/min/1.73 sqM) Est GFR (CKD-EPI)NonAf 66 (>60 ml/min/1.73 sqM) Glucose 183 H (74-99) mg/dL Calcium 8.7 (8.4-10.2) mg/dL Magnesium 1.7 (1.6-2.3) mg/dL Total Bilirubin 0.3 (0.2-1.3) mg/dL AST 17 (14-36) U/L ALT <6 (4-34) U/L Alkaline Phosphatase 62 (38-126) U/L NT-Pro-B Natriuret Pep 263 pg/mL Total Protein 5.8 L (6.3-8.2) g/dL Albumin 3.2 L (3.5-5.0) g/dL Disposition Clinical Impression: Weakness, Melanoma, Anemia Disposition: ADMITTED IP TO THIS HOSP Condition: Fair Time of Disposition: 09:48
[2023-12-28 07:27] LABS: African American GFR (CKD) 76 (>60 ml/min/1.73 sqM); Anion Gap 1 mmol/L; Blood Urea Nitrogen 20 mg/dL (7-17); Calcium 8.7 mg/dL (8.4-10.2); Carbon Dioxide 32 mmol/L (22-30); Chloride 103 mmol/L (98-107); Glucose 183 mg/dL (74-99); Magnesium 1.7 mg/dL (1.6-2.3); Non-African American GFR(CKD) 66 (>60 ml/min/1.73 sqM); Potassium 4.2 mmol/L (3.5-5.1); Sodium 136 mmol/L (137-145); Total Protein 5.8 g/dL (6.3-8.2)
[2023-12-28 07:28] LABS: ALT <6 U/L (4-34); AST 17 U/L (14-36); Albumin 3.2 g/dL (3.5-5.0); Alkaline Phosphatase 62 U/L (38-126); Total Bilirubin 0.3 mg/dL (0.2-1.3)
[2023-12-28 07:32] LABS: Basophils % (A) 0 %; Eosinophils # (A) 0.2 k/uL (0-0.7); Eosinophils % (A) 2 %; HCT 28.9 % (34.0-46.0); Hypochromasia Slight; Lymphocytes # (A) 0.5 k/uL (1.0-4.8); Lymphocytes % (A) 7 %; MCH 28.8 pg (25.0-35.0); MCHC 30.4 g/dL (31.0-37.0); MCV 94.5 fL (80.0-100.0); Mean Platelet Volume 7.3; Monocytes # (A) 0.5 k/uL (0-1.0); Monocytes % (A) 7 %; Neutrophils # (A) 5.5 k/uL (1.3-7.7); Neutrophils % (A) 81 %; Platelet Count 554 k/uL (150-450); RBC 3.06 m/uL (3.80-5.40); RDW 14.5 % (11.5-15.5); WBC 6.8 k/uL (3.8-10.6)
[2023-12-28 07:36] LABS: NT-Pro-B-Type Natriuretic Pept 263 pg/mL
[2023-12-28 07:38] LABS: HGB 8.8 gm/dL (11.4-16.0)
[2023-12-28 07:44] LABS: INR 0.9 (<1.2); Prothrombin Time 10.3 sec (10.0-12.5)
[2023-12-28 07:58] LABS: Partial Thromboplastin Time 21.7 sec (22.0-30.0)
[2023-12-28] MEDS ORDERED: NALOXONE 0.4 MG/ML 1 ML VIAL IV PRN (09:48)
[2023-12-28] MEDS: ACETAMINOPHEN TAB 325 MG TAB PO STA (14:46)
[2023-12-28] MEDS ORDERED: ZINC OXIDE PASTE (Z-GUARD) 1 APPLIC TOPICAL PRN (16:23)
[2023-12-28] MEDS: ATORVASTATIN 20 MG TAB PO SCH (18:26)
[2023-12-28] MEDS: CYANOCOBALAMIN 500 MCG TAB PO SCH (18:26)
[2023-12-28] MEDS: FERROUS SULFATE 325 MG TAB PO SCH (18:26)
[2023-12-28] MEDS: CHOLECALCIFEROL 25 MCG (1000 IU) TABLET PO SCH (18:26)
[2023-12-28] MEDS: CARBIDOPA-LEVODOPA ER 50-200MG 1 EACH TABLET.ER PO SCH (18:27)
[2023-12-28] MEDS: Acetaminophen-Codeine 300-30mg TAB PO PRN (19:57)
--- NOTE | 2023-12-28 22:46 | P.CONS ---
History of Present Illness - Reason for Consult Consult date: 12/28/23 hx melanoma Requesting physician: Steven Machado - Chief Complaint leg swelling - History of Present Illness Ms. Cantu is an 88-year-old woman with a past medical history significant for Parkinson's disease and melanoma of the left calf status post wide local excision and sentinel lymph node biopsy in 2007 complicated by localized recurrence in the left groin treated with immunotherapy who presented for evaluation of left groin/abdominal wall mass. She had wide local excision of melanoma on the left calf with sentinel lymph node biopsy performed on 07/12/2007 with excisional biopsy of a left groin lymph node being negative for metastases. She had subsequent recurrence in the left inguinal region in 2020 with biopsy of the lesion being noted to be consistent with high-grade epithelioid melanoma. BRAF mutational analysis was noted to be negative. She states she received 4-5 treatments of nivolumab, which was discontinued due to thyroiditis. After being started on thyroid supplementation, immunotherapy was not restarted. The mass was noted to have interval reduction from 9 cm to about 5.6 cm. She received 2 separate surgical opinions, who did not recommend surgical resection. PET/CT on 02/26/2022 noted significantly reduced FDG avidity in the left inguinal region with mild FDG uptake in the medial plantar arch of the left foot and left suprapatellar region possibly concerning for degenerative changes versus metastatic disease. Since early 2022, she noted recurrent lesion in the left inguinal region/left abdominal wall that progressively grew. She notes persistent bleeding of the mass in the left abdominal wall to the point where she presented to [facility] ED on 04/01/2023.CT of the abdomen and pelvis at that time noted large left anterior thigh/inguinal heterogeneous mass measuring 11 cm in the largest dimension. There is no evidence of metastatic disease noted. PET/CT revealed 11.7 cm lesion in the left anterior thigh/ing uinal region with an SUV of 41 and no evidence of distant metastatic disease. Biopsy of the lesion on 04/18/2023 revealed chronic neoplasm that was nondiagnostic. 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 She completed 10 fractions of palliative radiation on 05/01/23. Biopsy of the lesion performed at [facility] on 06/04/2023 noted poorly differentiated carcinoma. Guardant 360 did not reveal evidence of a targetable BRAF mutation. Given lesion is occurring at the same spot previous melanoma was noted, she was started on nivolumab. Cycle 1 of nivolumab initiated on 06/21/2023 and most recently received cycle 7 on 12/06/2023. She continues f/u with wound care at her living facility. PET CT obtained on 12/20/23, results still pending. Patient presented to the emergency room with left lower extremity and left upper extremity edema and bilateral lower extremity weakness. Patient underwent left lower extremity Doppler yesterday at [facility] which was negative for DVT. Patient reports left upper extremity edema has improved since admission but is still experiencing left lower extremity edema and redness. Patient states prior to admission she was having difficulties ambulating and was having lower extremity weakness and felt like her "legs were not working." Patient denies shortness of breath. Denies fever and chills. Patient has continued to follow- up with wound care nurse at her living facility, and states left lateral thigh lesion contiues to have darinage, but denies any acute changes. On admission WBC 6.8, hemoglobin 8.8, platelets 554,000. Creatinine 0.81, GFR 66. BNP 263. Bilirubin and LFTs WNL. Patient is afebrile and hemodynamically stable. Review of Systems 10 point ROS is negative except as stated in the HPI Past Medical History Past Medical History: Cancer, Diabetes Mellitus, Musculoskeletal Disorder, Osteoarthritis (OA) Additional Past Medical History / Comment(s): basal cell skin cancer, metastatic melanoma j History of Any Multi-Drug Resistant Organisms: None Reported Past Surgical History: Orthopedic Surgery Additional Past Surgical History / Comment(s): ORIF right hip, ORIF right wrist, ORIF right ankle Past Anesthesia/Blood Transfusion Reactions: No Reported Reaction Past Psychological History: No Psychological Hx Reported Smoking Status: Never smoker Past Alcohol Use History: None Reported Past Drug Use History: None Reported - Past Family History Mother Family Medical History: No Reported History Medications and Allergies Home Medications Medication Instructions Recorded Confirmed Type Aspirin [Adult Low Dose Aspirin EC] 81 mg PO DAILY 10/04/20 12/28/23 History Citalopram Hydrobromide 20 mg PO DAILY 10/04/20 12/28/23 History [Citalopram HBr] Simvastatin [Zocor] 40 mg PO PC-SUPPER 10/04/20 12/28/23 History Carbidopa-Levodopa ER 50-200Mg 1 tab PO Q8HR@0900,1400,1900 01/06/23 12/28/23 History [Sinemet CR 50-200 mg] Cholecalciferol [Vitamin D3 (25 50 mcg PO PC-SUPPER 01/06/23 12/28/23 History Mcg = 1000 Iu)] Ferrous Sulfate [Iron (65 MG 325 mg PO PC-SUPPER 01/06/23 12/28/23 History Elemental)] Acetaminophen-Codeine 300-30mg 1 tab PO Q6HR PRN 05/10/23 12/28/23 History [Tylenol w/codeine #3] sitaGLIPtin PHOS/metFORMIN HCL 1 tab PO DAILY 05/10/23 12/28/23 History [Janumet 50-1,000 mg Tablet] Calcium Carbonate [Calcium] 600 mg PO PC-SUPPER 06/18/23 12/28/23 History Cephalexin [Keflex] 500 mg PO Q8HR 12/28/23 12/28/23 History Citalopram Hydrobromide [CeleXA] 10 mg PO DAILY 12/28/23 12/28/23 History Cyanocobalamin (Vitamin B-12) 1,000 mcg PO PC-SUPPER 12/28/23 12/28/23 History [Vitamin B-12] Levothyroxine Sodium [Synthroid] 125 mcg PO DAILY@0600 12/28/23 12/28/23 History Omeprazole [PriLOSEC] 40 mg PO AC-SUPPER 12/28/23 12/28/23 History hydroCHLOROthiazide [Hydrodiuril] 25 mg PO DAILY 12/28/23 12/28/23 History rOPINIRole HCL [Requip] 1 mg PO PC-SUPPER 12/28/23 12/28/23 History Allergies Allergy/AdvReac Type Severity Reaction Status Date / Time No Known Allergies Allergy Verified 12/28/23 12:01 Physical Exam Vitals: Vital Signs Temp Pulse Resp BP Pulse Ox 12/28/23 10:00 98 18 130/68 95 12/28/23 06:37 97.9 F 80 18 139/74 95 Intake and Output 12/27/23 12/28/23 12/28/23 22:59 06:59 14:59 Other: Weight 89.811 kg - Constitutional General appearance: average body habitus, no acute distress - EENT Eyes: anicteric sclerae, EOMI ENT: hearing grossly normal - Respiratory Respiratory: bilateral: CTA - Cardiovascular Rhythm: regular - Gastrointestinal General gastrointestinal: soft, no tenderness - Integumentary mild erythema to LLE, with +2 edema. Left lateral thigh wound dressed in bandage, with drainage noted Integumentary: no cyanotic - Psychiatric Psychiatric: A&O x's 3 Results CBC & Chem 7: 12/28/23 07:09 12/28/23 07:09 Labs: Abnormal Lab Results - Last 24 Hours (Table) 12/28/23 12/28/23 12/28/23 Range/Units 07:09 07:09 07:09 RBC 3.06 L (3.80-5.40) m/uL Hgb 8.8 L D (11.4-16.0) gm/dL Hct 28.9 L (34.0-46.0) % MCHC 30.4 L (31.0-37.0) g/dL Plt Count 554 H (150-450) k/uL Lymphocytes # 0.5 L (1.0-4.8) k/uL APTT 21.7 L (22.0-30.0) sec Sodium 136 L (137-145) mmol/L Carbon Dioxide 32 H (22-30) mmol/L BUN 20 H (7-17) mg/dL Glucose 183 H (74-99) mg/dL Total Protein 5.8 L (6.3-8.2) g/dL Albumin 3.2 L (3.5-5.0) g/dL Assessment and Plan (1) Melanoma Current Visit: Yes Status: Acute Priority: High Code(s): C43.9 - MALIGNANT MELANOMA OF SKIN, UNSPECIFIED SNOMED Code(s): 636157499 (2) 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 Reporting increased LLE edema and redness -Doppler LLE negative for DVT -Wound care consulted -Unsure if extremity edema is related to melanoma, or possible acute cellulitis -WBC normal at 6.8, pt afebrile -Keflex started by admitting team
[2023-12-29] MEDS: CEPHALEXIN 500 MG CAP PO SCH (00:39)
[2023-12-29] MEDS: LEVOTHYROXINE 125 MCG TAB PO SCH (06:15)
[2023-12-29] MEDS: ASPIRIN 81 MG PO SCH (08:52)
[2023-12-29] MEDS: CITALOPRAM HYDROBROMIDE 10 MG TAB PO SCH (08:52)
[2023-12-29] MEDS ORDERED: CITALOPRAM HYDROBROMIDE 20 MG TAB PO SCH (09:00)
--- NOTE | 2023-12-29 10:58 | P.HPIM ---
History of Present Illness H&P Date: 12/28/23 Chief Complaint: Left arm/leg swelling 88-year-old female presents emergency department with chief complaint of swelling. Patient states she was at her PCPs office yesterday in which she had leg swelling and now she has mild arm swelling. Patient states she was sent for venous Doppler of her lower extremities yesterday which according to oncology has been reported negative for DVT. Patient states that she noticed that she has difficulty walking because her legs Giving out and that she was weak. 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 Patient states she is followed by wound center for her wound on her side. Patient reports that she has been progressively getting weaker and is having difficulty ambulating due to lower extremity weakness Blood work completed in ED reveals a WBC of 6.8, hemoglobin of 3.8 and platelet count of 554, sodium 136, potassium 4.2, BUNs/creatinine of 20/0.81 and blood glucose of 183 Review of Systems REVIEW OF SYSTEMS: CONSTITUTIONAL: No fever, no malaise, no fatigue. HEENT: No recent visual problems or hearing problems. Denied any sore throat. CARDIOVASCULAR: No chest pain, orthopnea, PND, no palpitations, no syncope. PULMONARY: No shortness of breath, no cough, no hemoptysis. GASTROINTESTINAL: No diarrhea, no nausea, no vomiting, no abdominal pain. NEUROLOGICAL: No headaches, no weakness, no numbness. HEMATOLOGICAL: Denies any bleeding or petechiae. GENITOURINARY: Denies any burning micturition, frequency, or urgency. MUSCULOSKELETAL/RHEUMATOLOGICAL: Denies any joint pain, swelling, or any muscle pain. ENDOCRINE: Denies any polyuria or polydipsia. The rest of the 14-point review of systems is negative. Past Medical History Past Medical History: Cancer, Diabetes Mellitus, Musculoskeletal Disorder, Osteoarthritis (OA) Additional Past Medical History / Comment(s): basal cell skin cancer, metastatic melanoma j History of Any Multi-Drug Resistant Organisms: None Reported Past Surgical History: Orthopedic Surgery Additional Past Surgical History / Comment(s): ORIF right hip, ORIF right wrist, ORIF right ankle Past Anesthesia/Blood Transfusion Reactions: No Reported Reaction Past Psychological History: No Psychological Hx Reported Smoking Status: Never smoker Past Alcohol Use History: None Reported Past Drug Use History: None Reported - Past Family History Mother Family Medical History: No Reported History Medications and Allergies Home Medications Medication Instructions Recorded Confirmed Type Aspirin [Adult Low Dose Aspirin EC] 81 mg PO DAILY 10/04/20 12/28/23 History Citalopram Hydrobromide 20 mg PO DAILY 10/04/20 12/28/23 History [Citalopram HBr] Simvastatin [Zocor] 40 mg PO PC-SUPPER 10/04/20 12/28/23 History Carbidopa-Levodopa ER 50-200Mg 1 tab PO Q8HR@0900,1400,1900 01/06/23 12/28/23 History [Sinemet CR 50-200 mg] Cholecalciferol [Vitamin D3 (25 50 mcg PO PC-SUPPER 01/06/23 12/28/23 History Mcg = 1000 Iu)] Ferrous Sulfate [Iron (65 MG 325 mg PO PC-SUPPER 01/06/23 12/28/23 History Elemental)] Acetaminophen-Codeine 300-30mg 1 tab PO Q6HR PRN 05/10/23 12/28/23 History [Tylenol w/codeine #3] sitaGLIPtin PHOS/metFORMIN HCL 1 tab PO DAILY 05/10/23 12/28/23 History [Janumet 50-1,000 mg Tablet] Calcium Carbonate [Calcium] 600 mg PO PC-SUPPER 06/18/23 12/28/23 History Cephalexin [Keflex] 500 mg PO Q8HR 12/28/23 12/28/23 History Citalopram Hydrobromide [CeleXA] 10 mg PO DAILY 12/28/23 12/28/23 History Cyanocobalamin (Vitamin B-12) 1,000 mcg PO PC-SUPPER 12/28/23 12/28/23 History [Vitamin B-12] Levothyroxine Sodium [Synthroid] 125 mcg PO DAILY@0600 12/28/23 12/28/23 History Omeprazole [PriLOSEC] 40 mg PO AC-SUPPER 12/28/23 12/28/23 History hydroCHLOROthiazide [Hydrodiuril] 25 mg PO DAILY 12/28/23 12/28/23 History rOPINIRole HCL [Requip] 1 mg PO PC-SUPPER 12/28/23 12/28/23 History Allergies Allergy/AdvReac Type Severity Reaction Status Date / Time No Known Allergies Allergy Verified 12/28/23 12:01 Physical Exam Vitals: Vital Signs Temp Pulse Resp BP Pulse Ox 12/28/23 10:00 98 18 130/68 95 12/28/23 06:37 97.9 F 80 18 139/74 95 Intake and Output 12/27/23 12/28/23 12/28/23 22:59 06:59 14:59 Other: Weight 89.811 kg General appearance: alert, in no apparent distress Head exam: Present: atraumatic, normocephalic, normal inspection Eye exam: Present: normal appearance, PERRL, EOMI. Absent: scleral icterus, conjunctival injection, periorbital swelling ENT exam: Present: normal exam, mucous membranes moist Neck exam: Present: normal inspection, full ROM. Absent: tenderness, meningismus, lymphadenopathy Respiratory exam: Present: normal lung sounds bilaterally. Absent: respiratory distress, wheezes, rales, rhonchi, stridor Cardiovascular Exam: Present: regular rate, normal rhythm, normal heart sounds. Absent: systolic murmur, diastolic murmur, rubs, gallop, clicks Extremities exam: Present: other (Lower extremity swelling noted bilaterally mild pitting edema, minimal erythema upper extremities minimal swelling) Neurological exam: Present: alert, oriented X3 Results CBC & Chem 7: 12/28/23 07:09 12/28/23 07:09 Labs: Abnormal Lab Results - Last 24 Hours (Table) 12/28/23 12/28/23 12/28/23 Range/Units 07:09 07:09 07:09 RBC 3.06 L (3.80-5.40) m/uL Hgb 8.8 L D (11.4-16.0) gm/dL Hct 28.9 L (34.0-46.0) % MCHC 30.4 L (31.0-37.0) g/dL Plt Count 554 H (150-450) k/uL Lymphocytes # 0.5 L (1.0-4.8) k/uL APTT 21.7 L (22.0-30.0) sec Sodium 136 L (137-145) mmol/L Carbon Dioxide 32 H (22-30) mmol/L BUN 20 H (7-17) mg/dL Glucose 183 H (74-99) mg/dL Total Protein 5.8 L (6.3-8.2) g/dL Albumin 3.2 L (3.5-5.0) g/dL Assessment and Plan Assessment: 1. Swelling left lower extremity/left thigh wound -Patient has a chronic left lateral thigh wound which remains unchanged from before -- Venous Doppler study completed on left lower extremity was negative for DVT -- Wound care has been consulted -Patient has been placed on oral Keflex 2. Lower extremity weakness/debility; will consult PT/OT; further recommendations pending evaluation 3. Anemia; hemoglobin remains at baseline; we will monitor CBC periodically 4. Hyperlipidemia; Lipitor 20 mg nightly 5. Hypothyroidism; levothyroxine 125 mcg daily 6. Vitamin deficiency; B12 and vitamin D; continue with home supplements 7. Depression; Celexa 30 mg daily 8. Parkinson's disease; stable on Sinemet 36311 1 tablet every 8 hours DVT prophylaxis; subcu heparin CODE STATUS; full code
[2023-12-29 12:31] LABS: Basophils % (A) 0 %; Eosinophils # (A) 0.1 k/uL (0-0.7); Eosinophils % (A) 1 %; HCT 31.5 % (34.0-46.0); HGB 9.6 gm/dL (11.4-16.0); Hypochromasia Slight; Lymphocytes # (A) 0.5 k/uL (1.0-4.8); Lymphocytes % (A) 6 %; MCH 29.4 pg (25.0-35.0); MCHC 30.5 g/dL (31.0-37.0); MCV 96.1 fL (80.0-100.0); Monocytes # (A) 0.5 k/uL (0-1.0); Monocytes % (A) 7 %; Neutrophils % (A) 84 %; Platelet Count 638 k/uL (150-450); RBC 3.28 m/uL (3.80-5.40); RDW 14.5 % (11.5-15.5); WBC 7.2 k/uL (3.8-10.6)
[2023-12-29 12:54] LABS: African American GFR (CKD) >90 (>60 ml/min/1.73 sqM); Anion Gap 4 mmol/L; Blood Urea Nitrogen 17 mg/dL (7-17); Calcium 8.7 mg/dL (8.4-10.2); Carbon Dioxide 28 mmol/L (22-30); Chloride 102 mmol/L (98-107); Glucose 195 mg/dL (74-99); Non-African American GFR(CKD) 80 (>60 ml/min/1.73 sqM); Potassium 4.1 mmol/L (3.5-5.1); Sodium 134 mmol/L (137-145)
--- NOTE | 2023-12-29 15:52 | P.PN ---
Subjective Progress Note Date: 12/29/23 Principal diagnosis: Melanoma -Afebrile, no acute events overnight -Noted significant improvement in lower extremity swelling with decreased redness in the left lower extremity -She does note persistent fatigue with weakness over the past few weeks. She did have levothyroxine dose increased approximately 2 weeks ago by her milk collector for immunotherapy induced hypothyroidism Objective - Vital Signs Vital signs: Vital Signs Temp 98.3 F 12/29/23 13:17 Pulse 73 12/29/23 13:17 Resp 18 12/29/23 13:17 BP 120/78 12/29/23 13:17 Pulse Ox 95 12/29/23 13:17 FiO2 Intake & Output 12/28/23 12/29/23 12/29/23 18:59 06:59 18:59 Intake Total 540 Output Total 700 500 Balance 540 -700 -500 Weight 90 kg Intake: Oral 540 Output: Urine 700 500 Other: Voiding Method Incontinent Incontinent External Catheter - Constitutional General appearance: Present: cooperative, no acute distress - Respiratory Respiratory: bilateral: CTA - Cardiovascular Rhythm: regular - Gastrointestinal General gastrointestinal: Present: soft. Absent: distended - Integumentary Integumentary Comment(s): Stable draining left thigh ulceration - Neurologic Neurologic: Present: CNII-XII intact. Absent: focal deficits - Musculoskeletal Musculoskeletal: Present: generalized weakness - Labs CBC & Chem 7: 12/29/23 11:58 12/29/23 11:58 Labs: Abnormal Lab Results - Last 24 Hours (Table) 12/29/23 12/29/23 Range/Units 11:58 11:58 RBC 3.28 L (3.80-5.40) m/uL Hgb 9.6 L (11.4-16.0) gm/dL Hct 31.5 L (34.0-46.0) % MCHC 30.5 L (31.0-37.0) g/dL Plt Count 638 H (150-450) k/uL Lymphocytes # 0.5 L (1.0-4.8) k/uL Sodium 134 L (137-145) mmol/L Glucose 195 H (74-99) mg/dL Assessment and Plan (1) Thrombocytosis Current Visit: Yes Status: Acute Code(s): D75.839 - THROMBOCYTOSIS, UNSPECIFIED SNOMED Code(s): 8003019 (2) Anemia Current Visit: Yes Status: Acute Code(s): D64.9 - ANEMIA, UNSPECIFIED SNOMED Code(s): 381139894 (3) Melanoma Current Visit: Yes Status: Acute Priority: High Code(s): C43.9 - MALIGNANT MELANOMA OF SKIN, UNSPECIFIED SNOMED Code(s): 915400336 (4) Cellulitis Current Visit: No Status: Acute Priority: High Code(s): L03.90 - CELLULITIS, UNSPECIFIED SNOMED Code(s): 163866561 Plan: Melanoma: -Full history in HPI -Completed cycle 7 nivolumab on 12/06/23 -PET CT to assess treatment response obtained on 12/20/23, formal report still pending -Per my review of the imaging, she does not appear to have any occult disease progression -Clinic follow-up will be scheduled upon discharge Left thigh wound, LLE edema: -Chronic wound of left lateral thigh, no acute changes. Reporting increased LLE edema and redness -Doppler LLE negative for DVT -Swelling and erythema of the left lower extremity in particular is improved since starting Keflex -Her fatigue and leg swelling potentially be due to hypothyroidism -She has had levothyroxine increased over the past 2 weeks -Continue levothyroxine at current dose given improvement in leg swelling -Continue Keflex per primary team Anemia, thrombocytosis -These could be secondary to infection with cellulitis superimposed on hypothyroidism -Iron studies ordered to rule out iron deficiency, which was not seen on prior studies outpatient Barbara Licona MD
[2023-12-29] MEDS: CALCIUM CARB-VIT D 500 MG-5 MCG TAB PO SCH (17:56)
[2023-12-29] MEDS: PANTOPRAZOLE 40 MG TABLET PO SCH (17:56)
--- NOTE | 2023-12-29 21:56 | P.PN ---
Subjective Progress Note Date: 12/29/23 88-year-old female presents emergency department with chief complaint of swelling. Patient states she was at her PCPs office yesterday in which she had leg swelling and now she has mild arm swelling. Patient states she was sent for venous Doppler of her lower extremities yesterday which according to oncology has been reported negative for DVT. Patient states that she noticed that she has difficulty walking because her legs Giving out and that she was weak. 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 Patient states she is followed by wound center for her wound on her side. Patient reports that she has been progressively getting weaker and is having difficulty ambulating due to lower extremity weakness Blood work completed in ED reveals a WBC of 6.8, hemoglobin of 3.8 and platelet count of 554, sodium 136, potassium 4.2, BUNs/creatinine of 20/0.81 and blood glucose of 183 Objective - Vital Signs Vital signs: Vital Signs Temp 98.0 F 12/29/23 07:19 Pulse 68 12/29/23 07:19 Resp 20 12/29/23 07:19 BP 131/80 12/29/23 07:19 Pulse Ox 97 12/29/23 07:19 FiO2 Intake & Output 12/28/23 12/29/23 12/29/23 18:59 06:59 18:59 Intake Total 540 Output Total 700 Balance 540 -700 Weight 90 kg Intake: Oral 540 Output: Urine 700 Other: Voiding Method Incontinent Incontinent External Catheter - Exam General appearance: alert, in no apparent distress Head exam: Present: atraumatic, normocephalic, normal inspection Eye exam: Present: normal appearance, PERRL, EOMI. Absent: scleral icterus, conjunctival injection, periorbital swelling ENT exam: Present: normal exam, mucous membranes moist Neck exam: Present: normal inspection, full ROM. Absent: tenderness, meningismus, lymphadenopathy Respiratory exam: Present: normal lung sounds bilaterally. Absent: respiratory distress, wheezes, rales, rhonchi, stridor Cardiovascular Exam: Present: regular rate, normal rhythm, normal heart sounds. Absent: systolic murmur, diastolic murmur, rubs, gallop, clicks Extremities exam: Present: other (Lower extremity swelling noted bilaterally m ild pitting edema, minimal erythema upper extremities minimal swelling) Neurological exam: Present: alert, oriented X3 - Labs CBC & Chem 7: 12/29/23 11:58 12/29/23 11:58 Assessment and Plan Assessment: 1. Swelling left lower extremity/left thigh wound -Patient has a chronic left lateral thigh wound which remains unchanged from before -- Venous Doppler study completed on left lower extremity was negative for DVT -- Wound care has been consulted -Patient has been placed on oral Keflex 2. Lower extremity weakness/debility; will consult PT/OT; further recommendations pending evaluation 3. Anemia; hemoglobin remains at baseline; we will monitor CBC periodically 4. Hyperlipidemia; Lipitor 20 mg nightly 5. Hypothyroidism; levothyroxine 125 mcg daily 6. Vitamin deficiency; B12 and vitamin D; continue with home supplements 7. Depression; Celexa 30 mg daily 8. Parkinson's disease; stable on Sinemet 51248 1 tablet every 8 hours DVT prophylaxis; subcu heparin CODE STATUS; full code
[2023-12-30 09:18] LABS: Basophils # (A) 0.04 X 10*3/uL (0.00-0.10); Basophils % (A) 0.6 %; Eosinophils # (A) 0.18 X 10*3/uL (0.04-0.35); Eosinophils % (A) 2.9 %; HCT 28.8 % (37.2-46.3); HGB 8.7 g/dL (12.0-15.0); Lymphocytes # (A) 0.64 X 10*3/uL (0.90-5.00); Lymphocytes % (A) 10.2 %; MCH 28.8 pg (27.0-32.0); MCHC 30.2 g/dL (32.0-37.0); MCV 95.4 FL (80.0-97.0); Monocytes # (A) 0.73 X 10*3/uL (0.20-1.00); Monocytes % (A) 11.6 %; NRBC Per 100 WBC 0 X 10*3/uL (0.00-0.01); Neutrophils # (A) 4.64 X 10*3/uL (1.80-7.70); Neutrophils % (A) 74.1 %; Platelet Count 486 X 10*3/uL (140-440); RBC 3.02 X 10*6/uL (4.10-5.20); RDW 14.5 % (11.5-14.5); WBC 6.27 X 10*3/uL (4.50-10.00)
[2023-12-30 10:37] LABS: Carbon Dioxide 27.6 mmol/L (21.6-31.8); Chloride 99 mmol/L (96-109); Glucose 183 mg/dL (70-110); Potassium 4.2 mmol/L (3.5-5.5); Sodium 138 mmol/L (135-145)
[2023-12-30 10:38] LABS: Calcium 9.3 mg/dL (8.7-10.3)
[2023-12-30 10:42] LABS: % Iron Saturation 28.62 (12.00-45.00); Ferritin 51.8 ng/mL (10.0-291.0)
--- NOTE | 2023-12-31 10:12 | P.CONS ---
History of Present Illness - Reason for Consult Consult date: 12/31/23 Wound care - History of Present Illness This is an 88-year-old patient known to the wound care center being seen on [address]. for nonhealing ulceration to the left groin. Patient is following with wound care for palliative treatment. Patient has a cancerous lesion to the left groin. She has been seen by multiple docs for palliative options however due to the amount of drainage and location of the ulceration no aggressive treatment options are available. At this time patient utilizes diaper and ABDs to manage the drainage. Carbon to the site. Patient states that the drainage has improved slightly.Original cause of wound was Other Lesion. The date acquired was: 03/09/2023. The wound has been in treatment 24 weeks. The wound is currently classified as a Full Thickness With Exposed Support Structures wound with etiologies of Atypical and Soft Tissue Radionecrosis and is located on the Left,Anterior Groin. The wound measures 4.1cm length x 8.1cm width x 4.7cm depth; 26.083cm^2 area and 122.59cm^3 volume. There is muscle and Fat Layer (Subcutaneous Tissue) exposed. There is no tunneling or undermining noted. There is a large amount of purulent drainage noted. Foul odor after cleansing was noted. The wound margin is fibrotic, thickened scar. There is small (1-33%) pink granulation within the wound bed. There is a large (67-100%) amount of necrotic tissue within the wound bed including Eschar and Necrosis of Muscle. The periwound skin appearance exhibited: Excoriation, Scarring, Maceration, Erythema. The periwound skin appearance did not exhibit: Callus, Crepitus, Induration, Rash, Dry/Scaly, Atrophie [place], Cyanosis, Ecchymosis, Hemosiderin Staining, Mottled, Pallor, Rubor. The surrounding wound skin color is noted with erythema which is circumferential. Periwound temperature was noted as No Abnormality. The periwound has tenderness on palpation. Review Of Systems: Constitutional: No fever, no chills, no night sweats. No weight change. No weakness, fatigue or lethargy. No daytime sleepiness. Integumentary:reports wounds, no lesions. No rash or pruritus. No unusual bruising. No change in hair or nails. Physical exam: General Appearance: Alert, cooperative, no distress, appears stated age. Skin: See HPI all other Skin color, texture, tugor normal, no rashes or lesions. Neurologic: Alert oriented x3 Assessment: 1. 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 Patient will return to the wound care center on January 16. At this time we will continue with palliative measures of maintaining drainage with ABDs and gauze. May apply zinc barrier cream to the periwound as needed. Upon discharge patient may return utilizing absorbent diapers and carbon. Thank you for the consultation any questions please contact the wound care center DNP note has been reviewed and discussed with Dr. Hercules and the impression and plan of care has been directed as dictated. Past Medical History Past Medical History: Cancer, Diabetes Mellitus, Musculoskeletal Disorder, Osteoarthritis (OA) Additional Past Medical History / Comment(s): basal cell skin cancer, metastatic melanoma j History of Any Multi-Drug Resistant Organisms: None Reported Past Surgical History: Orthopedic Surgery Additional Past Surgical History / Comment(s): ORIF right hip, ORIF right wrist, ORIF right ankle Past Anesthesia/Blood Transfusion Reactions: No Reported Reaction Past Psychological History: No Psychological Hx Reported Smoking Status: Never smoker Past Alcohol Use History: None Reported Past Drug Use History: None Reported - Past Family History Mother Family Medical History: No Reported History Medications and Allergies Home Medications Medication Instructions Recorded Confirmed Type Aspirin [Adult Low Dose Aspirin EC] 81 mg PO DAILY 10/04/20 12/28/23 History Citalopram Hydrobromide 20 mg PO DAILY 10/04/20 12/28/23 History [Citalopram HBr] Simvastatin [Zocor] 40 mg PO PC-SUPPER 10/04/20 12/28/23 History Carbidopa-Levodopa ER 50-200Mg 1 tab PO Q8HR@0900,1400,1900 01/06/23 12/28/23 History [Sinemet CR 50-200 mg] Cholecalciferol [Vitamin D3 (25 50 mcg PO PC-SUPPER 01/06/23 12/28/23 History Mcg = 1000 Iu)] Ferrous Sulfate [Iron (65 MG 325 mg PO PC-SUPPER 01/06/23 12/28/23 History Elemental)] Acetaminophen-Codeine 300-30mg 1 tab PO Q6HR PRN 05/10/23 12/28/23 History [Tylenol w/codeine #3] sitaGLIPtin PHOS/metFORMIN HCL 1 tab PO DAILY 05/10/23 12/28/23 History [Janumet 50-1,000 mg Tablet] Calcium Carbonate [Calcium] 600 mg PO PC-SUPPER 06/18/23 12/28/23 History Cephalexin [Keflex] 500 mg PO Q8HR 12/28/23 12/28/23 History Citalopram Hydrobromide [CeleXA] 10 mg PO DAILY 12/28/23 12/28/23 History Cyanocobalamin (Vitamin B-12) 1,000 mcg PO PC-SUPPER 12/28/23 12/28/23 History [Vitamin B-12] Levothyroxine Sodium [Synthroid] 125 mcg PO DAILY@0600 12/28/23 12/28/23 History Omeprazole [PriLOSEC] 40 mg PO AC-SUPPER 12/28/23 12/28/23 History hydroCHLOROthiazide [Hydrodiuril] 25 mg PO DAILY 12/28/23 12/28/23 History rOPINIRole HCL [Requip] 1 mg PO PC-SUPPER 12/28/23 12/28/23 History Allergies Allergy/AdvReac Type Severity Reaction Status Date / Time No Known Allergies Allergy Verified 12/28/23 12:01 Physical Exam Vitals: Vital Signs Temp Pulse Resp BP BP Pulse Ox 12/31/23 07:55 98.1 F 67 18 117/70 93 L 12/31/23 02:00 98 F 73 16 116/51 94 L 12/30/23 20:00 16 12/30/23 19:22 98.1 F 68 16 106/61 95 12/30/23 13:58 98.2 F 73 20 123/56 95 Intake and Output 12/30/23 12/31/23 12/31/23 22:59 06:59 14:59 Intake Total 200 Output Total 500 700 Balance -300 -700 Intake: Oral 200 Output: Urine 500 700 Other: Voiding Method Incontinent External Catheter Results CBC & Chem 7: 12/30/23 05:02 12/30/23 05:02 Labs: Abnormal Lab Results - Last 24 Hours (Table) 12/30/23 Range/Units 05:02 Glucose 183 H (70-110) mg/dL Assessment and Plan (1) Non-pressure chronic ulcer of left thigh with necrosis of muscle Current Visit: Yes Status: Acute Code(s): L97.123 - NON-PRS CHRONIC ULCER OF LEFT THIGH W NECROSIS OF MUSCLE SNOMED Code(s): 33408629693408875 (2) Other specified malignant neoplasm of skin of left lower limb, including hip Current Visit: Yes Status: Acute Code(s): C44.799 - OTH MALIGNANT NEOPLASM SKIN/ LEFT LOWER LIMB, INCLUDING HIP SNOMED Code(s): 905929355 (3) Type 2 diabetes mellitus with other skin ulcer Current Visit: No Status: Acute Code(s): E11.622 - TYPE 2 DIABETES MELLITUS WITH OTHER SKIN ULCER; L98.499 - NON-PRESSURE CHRONIC ULCER OF SKIN OF SITES W UNSP SEVERITY SNOMED Code(s): 331834071
[2023-12-31 10:53] LABS: Calcium 8.9 mg/dL (8.7-10.3); Carbon Dioxide 27.3 mmol/L (21.6-31.8); Chloride 99 mmol/L (96-109); Glucose 223 mg/dL (70-110); Potassium 4.6 mmol/L (3.5-5.5); Sodium 137 mmol/L (135-145)
[2023-12-31 10:58] LABS: Basophils # (A) 0.03 X 10*3/uL (0.00-0.10); Basophils % (A) 0.4 %; Eosinophils # (A) 0.12 X 10*3/uL (0.04-0.35); Eosinophils % (A) 1.5 %; HCT 29.7 % (37.2-46.3); HGB 8.9 g/dL (12.0-15.0); Lymphocytes # (A) 0.42 X 10*3/uL (0.90-5.00); Lymphocytes % (A) 5.3 %; MCV 96.7 FL (80.0-97.0); Mean Platelet Volume 8.3 FL (9.5-12.2); Monocytes # (A) 0.69 X 10*3/uL (0.20-1.00); Monocytes % (A) 8.7 %; NRBC Per 100 WBC 0 X 10*3/uL (0.00-0.01); Neutrophils % (A) 83.6 %; Platelet Count 504 X 10*3/uL (140-440); RBC 3.07 X 10*6/uL (4.10-5.20); RDW 14.4 % (11.5-14.5)
--- NOTE | 2023-12-31 13:54 | P.PN ---
Subjective Progress Note Date: 12/30/23 88-year-old female presents emergency department with chief complaint of swelling. Patient states she was at her PCPs office yesterday in which she had leg swelling and now she has mild arm swelling. Patient states she was sent for venous Doppler of her lower extremities yesterday which according to oncology has been reported negative for DVT. Patient states that she noticed that she has difficulty walking because her legs Giving out and that she was weak. 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 Patient states she is followed by wound center for her wound on her side. Patient reports that she has been progressively getting weaker and is having difficulty ambulating due to lower extremity weakness Blood work completed in ED reveals a WBC of 6.8, hemoglobin of 3.8 and platelet count of 554, sodium 136, potassium 4.2, BUNs/creatinine of 20/0.81 and blood glucose of 183 24-hour interval change 12/30/2023 Patient is seen and evaluated sitting up in bedside chair; reports improved stre ngth in both lower extremities patient initially admitted Because of leg weakness and inability to care for self Vital signs are reviewed and remained stable Patient remains on antibiotic therapy for left thigh wound and cellulitis left lower extremity Venous Doppler is completed and is negative for DVT in left lower extremity --Oncology evaluation and recommendations noted and appreciated; weakness lower extremity likely resulting from increased need of levothyroxine given immune therapy; dose of levothyroxine was increased 2 weeks prior -PT/OT to evaluate patient with likely plan for placement in skilled rehab Objective - Vital Signs Vital signs: Vital Signs Temp 98.3 F 12/30/23 07:36 Pulse 64 12/30/23 07:36 Resp 18 12/30/23 07:36 BP 120/71 12/30/23 07:36 Pulse Ox 94 L 12/30/23 07:36 FiO2 Intake & Output 12/29/23 12/30/23 12/30/23 18:59 06:59 18:59 Output Total 800 600 Balance -800 -600 Output: Urine 800 600 Other: Voiding Method Incontinent Incontinent Incontinent External Catheter External Catheter External Catheter - Exam General appearance: alert, in no apparent distress Head exam: Present: atraumatic, normocephalic, normal inspection Eye exam: Present: normal appearance, PERRL, EOMI. Absent: scleral icterus, conjunctival injection, periorbital swelling ENT exam: Present: normal exam, mucous membranes moist Neck exam: Present: normal inspection, full ROM. Absent: tenderness, meningismus, lymphadenopathy Respiratory exam: Present: normal lung sounds bilaterally. Absent: respiratory distress, wheezes, rales, rhonchi, stridor Cardiovascular Exam: Present: regular rate, normal rhythm, normal heart sounds. Absent: systolic murmur, diastolic murmur, rubs, gallop, clicks Extremities exam: Present: other (Lower extremity swelling noted bilaterally mild pitting edema, minimal erythema upper extremities minimal swelling) Neurological exam: Present: alert, oriented X3 - Labs CBC & Chem 7: 12/31/23 06:59 12/31/23 06:59 Labs: Abnormal Lab Results - Last 24 Hours (Table) 12/29/23 12/29/23 12/30/23 Range/Units 11:58 11:58 05:02 RBC 3.28 L 3.02 L (3.80-5.40) m/uL Hgb 9.6 L 8.7 L (11.4-16.0) gm/dL Hct 31.5 L 28.8 L (34.0-46.0) % MCHC 30.5 L 30.2 L (31.0-37.0) g/dL Plt Count 638 H 486 H (150-450) k/uL MPV 8.0 L (9.5-12.2) FL Lymphocytes # 0.5 L 0.64 L (1.0-4.8) k/uL Sodium 134 L (137-145) mmol/L Glucose 195 H (74-99) mg/dL 12/30/23 Range/Units 05:02 RBC (3.80-5.40) m/uL Hgb (11.4-16.0) gm/dL Hct (34.0-46.0) % MCHC (31.0-37.0) g/dL Plt Count (150-450) k/uL MPV (9.5-12.2) FL Lymphocytes # (1.0-4.8) k/uL Sodium (137-145) mmol/L Glucose 183 H (74-99) mg/dL Assessment and Plan Assessment: 1. Swelling left lower extremity/left thigh wound -Patient has a chronic left lateral thigh wound which remains unchanged from before -- Venous Doppler study completed on left lower extremity was negative for DVT -- Wound care has been consulted -Patient has been placed on oral Keflex 2. Lower extremity weakness/debility; will consult PT/OT; further recommendati ons pending evaluation 3. Anemia; hemoglobin remains at baseline; we will monitor CBC periodically 4. Hyperlipidemia; Lipitor 20 mg nightly 5. Hypothyroidism; levothyroxine 125 mcg daily 6. Vitamin deficiency; B12 and vitamin D; continue with home supplements 7. Depression; Celexa 30 mg daily 8. Parkinson's disease; stable on Sinemet 39551 1 tablet every 8 hours DVT prophylaxis; subcu heparin CODE STATUS; full code
--- NOTE | 2023-12-31 15:08 | P.PN ---
Subjective Progress Note Date: 12/31/23 88-year-old female presents emergency department with chief complaint of swelling. Patient states she was at her PCPs office yesterday in which she had leg swelling and now she has mild arm swelling. Patient states she was sent for venous Doppler of her lower extremities yesterday which according to oncology has been reported negative for DVT. Patient states that she noticed that she has difficulty walking because her legs Giving out and that she was weak. 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 Patient states she is followed by wound center for her wound on her side. Patient reports that she has been progressively getting weaker and is having difficulty ambulating due to lower extremity weakness Blood work completed in ED reveals a WBC of 6.8, hemoglobin of 3.8 and platelet count of 554, sodium 136, potassium 4.2, BUNs/creatinine of 20/0.81 and blood glucose of 183 24-hour interval change 12/30/2023 Patient is seen and evaluated sitting up in bedside chair; reports improved st rength in both lower extremities patient initially admitted Because of leg weakness and inability to care for self Vital signs are reviewed and remained stable Patient remains on antibiotic therapy for left thigh wound and cellulitis left lower extremity Venous Doppler is completed and is negative for DVT in left lower extremity --Oncology evaluation and recommendations noted and appreciated; weakness lower extremity likely resulting from increased need of levothyroxine given immune therapy; dose of levothyroxine was increased 2 weeks prior -PT/OT to evaluate patient with likely plan for placement in skilled rehab 12/31/2023 Patient is seen and evaluated in follow-up today currently reporting weakness and difficulty with ambulation. Patient evaluated by physical therapy recommending ECF for continued strength and mobility. Case management/social work consulted and working on possible ECF tomorrow would which will require insurance authorization. Currently awaiting updated PT notes. Patient is afebrile with no reports of chest pain or shortness of breath. Patient reports tolerating diet with no reported nausea or vomiting. Oncology following and patient will follow-up in the outpatient setting once discharged from ECF. Review of systems: Constitutional: No reports of fatigue, fever, or chills Cardiovascular: No reports of chest pain or palpitations Respiratory: No reports of shortness of breath or cough GI: No reports of nausea, vomiting, or diarrhea : No reports of dysuria or retention Neurovascular: reports of generalized weakness and inability to ambulate All medications have been reviewed Physical exam: Gen: This is a 88-year-old female who is awake, alert and oriented x 3, well- developed, elderly appearing, obese HEENT: Head is atraumatic, normocephalic. Pupils equal, round. Sclerae is anicteric. NECK: Supple. No JVD. No lymphadenopathy. No thyromegaly. LUNGS: Diminished breath sounds bilaterally otherwise clear to auscultation. No wheezes or rhonchi. No intercostal retractions. HEART: S1, S2 are muffled ABDOMEN: Soft. Obese. Bowel sounds are present. No masses. No tenderness. EXTREMITIES: No pedal edema. No calf tenderness. NEUROLOGICAL: Patient is awake, alert and oriented x3. Cranial nerves 2 through 12 are grossly intact. Diffusely weak Assessment: -Swelling left lower extremity/left thigh wound, chronic, remains unchanged, left lower extremity Doppler was negative for DVT -Lower extremity weakness/debility -Anemia; hemoglobin remains at baseline -Hyperlipidemia -Hypothyroidism -Vitamin deficiency; B12 and vitamin D; continue with home supplements -Depression history -History of Parkinson's disease; stable on Sinemet 43583 1 tablet every 8 hours -Obesity with a BMI of 36.3 -GI prophylaxis -DVT prophylaxis; subcu heparin -full code Plan: Patient being followed by wound care along with oncology plans on following up with gynecology in the outpatient setting once discharged Patient evaluated by PT/OT therapy recommending rehab and patient is agreeable. Social work following and consulted working on updated PT/OT therapy notes as well as insurance authorization. Plan is for possible [place] Will follow-up on repeat labs and continue to monitor closely Recommend PT/OT therapy daily Encouraged oral intake Due to multiple complex medical issues, prognosis is guarded Possible discharge in the next 24 hours The impression and plan of care has been dictated by Betzaida Brock, Nurse Practitioner as directed. Dr. Hamzah MD I have performed a history and examination and MDM of this patient, discussed the same with the dictator, and agree with the dictator's assessment and plan as written ,documented as a scribe. Based on total visit time, I have performed more than 50% of the visit. Objective - Vital Signs Vital signs: Vital Signs Temp 98.1 F 12/31/23 13:16 Pulse 70 12/31/23 13:16 Resp 17 12/31/23 13:16 BP 135/78 12/31/23 13:16 Pulse Ox 95 12/31/23 13:16 FiO2 Intake & Output 12/30/23 12/31/23 12/31/23 18:59 06:59 18:59 Intake Total 200 Output Total 500 700 Balance -500 -500 Intake: Oral 200 Output: Urine 500 700 Other: Voiding Method Incontinent Incontinent Incontinent External Catheter External Catheter External Catheter - Labs CBC & Chem 7: 12/31/23 06:59 12/31/23 06:59 Labs: Abnormal Lab Results - Last 24 Hours (Table) 12/31/23 12/31/23 Range/Units 06:59 06:59 RBC 3.07 L (4.10-5.20) X 10*6/uL Hgb 8.9 L (12.0-15.0) g/dL Hct 29.7 L (37.2-46.3) % MCHC 30.0 L (32.0-37.0) g/dL Plt Count 504 H (140-440) X 10*3/uL MPV 8.3 L (9.5-12.2) FL Lymphocytes # 0.42 L (0.90-5.00) X 10*3/uL Glucose 223 H (70-110) mg/dL
[2024-01-01 10:24] LABS: HCT 29.2 % (37.2-46.3); MCH 29.8 pg (27.0-32.0); MCHC 30.8 g/dL (32.0-37.0); MCV 96.7 FL (80.0-97.0); Mean Platelet Volume 8.2 FL (9.5-12.2); NRBC Per 100 WBC 0 X 10*3/uL (0.00-0.01); Platelet Count 513 X 10*3/uL (140-440); RBC 3.02 X 10*6/uL (4.10-5.20); RDW 14.4 % (11.5-14.5); WBC 6.36 X 10*3/uL (4.50-10.00)
[2024-01-01 10:25] LABS: Basophils # (A) 0.04 X 10*3/uL (0.00-0.10); Basophils % (A) 0.6 %; Eosinophils # (A) 0.13 X 10*3/uL (0.04-0.35); Lymphocytes # (A) 0.45 X 10*3/uL (0.90-5.00); Lymphocytes % (A) 7.1 %; Monocytes # (A) 0.69 X 10*3/uL (0.20-1.00); Monocytes % (A) 10.8 %; Neutrophils % (A) 78.7 %
[2024-01-01 10:41] LABS: BUN/Creat Ratio 17.12 Ratio (12.00-20.00); Blood Urea Nitrogen 13.7 mg/dL (9.0-27.0); Calcium 9.1 mg/dL (8.7-10.3); Carbon Dioxide 27.9 mmol/L (21.6-31.8); Chloride 97 mmol/L (96-109); Glucose 196 mg/dL (70-110); Potassium 4.1 mmol/L (3.5-5.5); Sodium 134 mmol/L (135-145)
[2024-01-01 12:15] VITALS: BP 137/60; PULSE 68; RESP 16; TEMP 97.4
--- NOTE | 2024-01-01 14:23 | P.DS ---
Providers Date of admission: 12/28/23 09:42 Expected date of discharge: 01/01/24 Attending physician: Deonna Goodson Consults: 12/28/23 09:48 Consult Physician Urgent Consulting Provider: Barbaar Licona Consult Reason/Comments: melanoma Do you want consulting provider notified?: Yes Primary care physician: Ting Vazquez [facility] Hospital Course: Final diagnosis -Swelling left lower extremity/left thigh wound, chronic, remains unchanged, left lower extremity Doppler was negative for DVT -Lower extremity weakness/debility -Anemia; hemoglobin remains at baseline -Hyperlipidemia -Hypothyroidism, need to repeat thyroid studies including TSH, T3 free, T4 free in 4 weeks -Vitamin deficiency; B12 and vitamin D -Depression history -History of Parkinson's disease; stable on Sinemet 77925 1 tablet every 8 hours -Obesity with a BMI of 36.3 -GI prophylaxis -DVT prophylaxis; subcu heparin -full code Discharge disposition Patient is being discharged in a stable condition with guarded prognosis to [facility]. Patient will follow-up with Dr. Vazquez in the outpatient setting upon discharge. Patient is to continue with oral Keflex 3 times daily for the next 10 days. Patient to follow-up with wound care center on January 16 as scheduled. Patient to follow-up with oncology outpatient once discharged from [facility]. Patient will not be receiving any oncological care during ECF. Total time taken is greater than 35 minutes. Hospital course This is a 88-year-old female who was recently admitted with generalized weakness and a chronic wound of the left thigh that patient follows with the wound care center. Patient was evaluated by wounds recommending continuing with local wound care daily by cleansing the area with normal saline and applying a 4 x 4 and ABD secured with paper tape and also as needed if becoming saturated. Patient does have a January 16 appointment at the wound care center and has been instructed to continue to follow-up. Patient has recently had thyroid medications adjusted by endocrine and would recommend continuing with this dose and outpatient follow-up with repeat labs in the next 4 weeks of TSH, T3 free, T4 free. Patient will continue on oral Keflex 3 times daily for 10 days to complete the course. Patient with generalized weakness evaluated by physical therapy recommending rehab and patient is agreeable. Patient has been accepted at [facility] and insurance authorization has been obtained. Patient is agreeable to no oncological care and will follow-up with oncology in the outpatient setting once discharged from ECF. Please refer to other consultation notes for further HPI. Currently no reports of chest pain, shortness of breath, or palpitations. Patient is afebrile. No reports of nausea or vomiting and patient is tolerating diet. Patient will be going to [facility] today. Guarded prognosis given significant comorbidities Physical exam: Gen: This is a 88-year-old female who is awake, alert and oriented x 2-3, chronic, well-developed, elderly appearing, obese HEENT: Head is atraumatic, normocephalic. Pupils equal, round. Sclerae is anicteric. NECK: Supple. No JVD. No lymphadenopathy. No thyromegaly. LUNGS: Diminished breath sounds bilaterally otherwise clear to auscultation. No wheezes or rhonchi. No intercostal retractions. HEART: S1, S2 are muffled ABDOMEN: Soft. Obese bowel sounds are present. No masses. No tenderness. EXTREMITIES: No pedal edema. No calf tenderness. Left thigh wound chronic with drainage noted and most recent dressing is dry and intact at this time NEUROLOGICAL: Patient is awake, alert and oriented x 2/3. Cranial nerves 2 through 12 are grossly intact. Diffusely weak Please refer to medication reconciliation sheet for a list of medications. The impression and plan of care has been dictated by Betzaida Brock, Nurse Practitioner as directed. Dr. Hamzah MD I have performed a history and examination and MDM of this patient, discussed the same with the dictator, and agree with the dictator's assessment and plan as written ,documented as a scribe. Based on total visit time, I have performed more than 50% of the visit. Patient Condition at Discharge: Fair Plan - Discharge Summary Discharge Rx Participant: No New Discharge Prescriptions: New Citalopram Hydrobromide [CeleXA] 30 mg PO DAILY tab Continue Aspirin [Adult Low Dose Aspirin EC] 81 mg PO DAILY Ferrous Sulfate [Iron (65 MG Elemental)] 325 mg PO PC-SUPPER sitaGLIPtin PHOS/metFORMIN HCL [Janumet 50-1,000 mg Tablet] 1 tab PO DAILY Calcium Carbonate [Calcium] 600 mg PO PC-SUPPER Cyanocobalamin (Vitamin B-12) [Vitamin B-12] 1,000 mcg PO PC-SUPPER Levothyroxine Sodium [Synthroid] 125 mcg PO DAILY@0600 Acetaminophen-Codeine 300-30mg [Tylenol w/codeine #3] 1 tab PO Q6HR PRN #4 tab PRN Reason: Pain Simvastatin [Zocor] 40 mg PO PC-SUPPER Carbidopa-Levodopa ER 50-200Mg [Sinemet CR 50-200 mg] 1 tab PO Q8HR@0900,1400,1900 Cholecalciferol [Vitamin D3 (25 Mcg = 1000 Iu)] 50 mcg PO PC-SUPPER Omeprazole [PriLOSEC] 40 mg PO AC-SUPPER rOPINIRole HCL [Requip] 1 mg PO PC-SUPPER Cephalexin [Keflex] 500 mg PO Q8HR 10 Days #30 each Discontinued Citalopram Hydrobromide [Citalopram HBr] 20 mg PO DAILY hydroCHLOROthiazide [Hydrodiuril] 25 mg PO DAILY Citalopram Hydrobromide [CeleXA] 10 mg PO DAILY Discharge Medication List Aspirin [Adult Low Dose Aspirin EC] 81 mg PO DAILY 10/04/20 [History] Simvastatin [Zocor] 40 mg PO PC-SUPPER 10/04/20 [History] Carbidopa-Levodopa ER 50-200Mg [Sinemet CR 50-200 mg] 1 tab PO Q8HR@0900,1400,1900 01/06/23 [History] Cholecalciferol [Vitamin D3 (25 Mcg = 1000 Iu)] 50 mcg PO PC-SUPPER 01/06/23 [History] Ferrous Sulfate [Iron (65 MG Elemental)] 325 mg PO PC-SUPPER 01/06/23 [History] sitaGLIPtin PHOS/metFORMIN HCL [Janumet 50-1,000 mg Tablet] 1 tab PO DAILY 05/10/23 [History] Calcium Carbonate [Calcium] 600 mg PO PC-SUPPER 06/18/23 [History] Cyanocobalamin (Vitamin B-12) [Vitamin B-12] 1,000 mcg PO PC-SUPPER 12/28/23 [History] Levothyroxine Sodium [Synthroid] 125 mcg PO DAILY@0600 12/28/23 [History] Omeprazole [PriLOSEC] 40 mg PO AC-SUPPER 12/28/23 [History] rOPINIRole HCL [Requip] 1 mg PO PC-SUPPER 12/28/23 [History] Acetaminophen-Codeine 300-30mg [Tylenol w/codeine #3] 1 tab PO Q6HR PRN #4 tab 01/01/24 [Rx] Cephalexin [Keflex] 500 mg PO Q8HR 10 Days #30 each 01/01/24 [Rx] Citalopram Hydrobromide [CeleXA] 30 mg PO DAILY tab 01/01/24 [Rx] Follow up Appointment(s)/Referral(s): Ting Vazquez MD [Primary Care Provider] - 1-2 days Barbara Licona MD [STAFF PHYSICIAN] - 2 Weeks Carrie Hauser NPC [Nurse Practitioner] - 10 Days (Has January 16 appointment) Activity/Diet/Wound Care/Special Instructions: patient is going to [facility] Activity as tolerated Continue with local wound care to the left thigh Follow-up with the wound care center on January 16 as scheduled Follow-up with oncology outpatient once discharged from ECF Continue Keflex 3 times daily for 10 days Discharge Disposition: TRANSFER TO SNF/ECF
== END 2024-01-01 18:30 ==
LOC: EC 06:32 → 5NMEDONC 09:42
PROVIDERS: ADMIT Hospitalist; ATTEND Hospitalist
DX: C43.72 Malignant melanoma of left lower limb, including hip (principal); E11.622 Type 2 diabetes mellitus with other skin ulcer; L97.123 Non-pressure chronic ulcer of left thigh with necrosis of muscle; L03.116 Cellulitis of left lower limb; D75.839 Thrombocytosis, unspecified; R53.1 Weakness; D64.9 Anemia, unspecified; E78.5 Hyperlipidemia, unspecified; E03.9 Hypothyroidism, unspecified; E55.9 Vitamin D deficiency, unspecified; E53.8 Deficiency of other specified B group vitamins; F32.A Depression, unspecified; G20.A1 Parkinson's disease without dyskinesia, without mention of fluctuations; E66.9 Obesity, unspecified; Z68.36 Body mass index [BMI] 36.0-36.9, adult; Z85.828 Personal history of other malignant neoplasm of skin; Z85.820 Personal history of malignant melanoma of skin; Z79.82 Long term (current) use of aspirin; Z79.84 Long term (current) use of oral hypoglycemic drugs; Z79.890 Hormone replacement therapy; Z79.899 Other long term (current) drug therapy
CPT/HCPCS: 99285; 36415; 97162; 83880; 80053; 80048 ×4; 82728; 83540; 83550; 83735; 85025 ×5; 85610; 85730; G0378 ×5